=== PATIENT | female | born 1950 | race Caucasian/White ===

== ENCOUNTER 2019-09-05 08:24 | Inpatient (IN) | payer MEDICARE, SELFPAY ==
[2019-09-05] VITALS (29 sets, daily range): BP systolic 83–150; BP diastolic 54–110; PULSE 70–94; RESP 16–30; TEMP 36.4–37; O2SAT 67–100; BMI 35.6
--- NOTE | ~2019-09-05 | XR_ITS ---
EXAMINATION: XR shoulder RT min 2V, XR humerus RT DATE: 09/05/2019 10:06 INDICATION: Right humeral fracture post fall TECHNIQUE: 1. AP internally and externally rotated, AP oblique externally rotated and transscapular Y views of t he right shoulder were obtained. 2. Internal and axillary rotated views of the right humerus were obtained. COMPARISON: None FINDINGS: Old fracture at the surgical neck of the proximal right humerus with solid bridging between the humer al head fragment and the diaphyseal fragment. The fracture is healing with one half shaft width anter ior displacement, 1-1.5 cm proximal migration and approximately 30-40 degrees posterior angulation. N o acute fracture. Moderate right glenohumeral osteoarthritis with inferior predominant nonuniform bhavya nt space narrowing which appears to be increased since 01/05/2019. There is also moderate right acrom ioclavicular osteoarthritis. Normal joint space at the right elbow. Mild linear discoid atelectasis/s carring at the right lower lung zone. IMPRESSION: Healed proximal right humeral fracture deformity with moderate likely secondary osteoarthritis at the right glenohumeral joint. Reviewed, dictated and finalized at location A. IMPRESSION: Healed proximal right humeral fracture deformity with moderate likely secondary osteoarthritis at the right glenohumeral joint.
--- NOTE | ~2019-09-05 | CT_ITS ---
EXAMINATION: CT cervical spine wo con DATE: 09/05/2019 09:06 INDICATION: Weakness, dizziness, fall with head injury. TECHNIQUE: Computed tomography (CT) of the cervical spine was performed without intravenous contrast. Automated exposure control and iterative reconstruction technique were employed. The dose-length pro duct was 381.57 mGy-cm. COMPARISON: None FINDINGS: Mild cervicothoracic levocurvature. Sagittal alignment is normal. Vertebral body heights are normal. No fracture. Moderate disc height loss with Modic type III sclerotic endplate changes at C4-C5 throug h C6-C7. Mild disc height loss at C2-C3 and mild to moderate disc height loss at C3-C4. Visualized ce rvical soft tissues and apices of lungs are unremarkable. The following disc levels are specifically discussed: C2-C3: There is no uncovertebral joint osteoarthritis. There is mild right and moderate left facet j oint osteoarthritis. There is no neural foraminal stenosis. There is no central canal stenosis. C3-C4: There is severe bilateral uncovertebral joint osteoarthritis. There is mild bilateral facet guido int osteoarthritis. There is mild bilateral neural foraminal stenosis. There is no central canal sten osis. C4-C5: There is moderate right and severe left uncovertebral joint osteoarthritis. There is mild bila teral facet joint osteoarthritis. There is mild to moderate left and minimal right neural foraminal s tenosis. There is no central canal stenosis. C5-C6: Posterior disc osteophyte complex. There is severe bilateral uncovertebral joint osteoarthriti s. There is mild bilateral facet joint osteoarthritis. There is mild left and mild to moderate right neural foraminal stenosis. There is mild central canal stenosis. C6-C7: There is mild left and severe right uncovertebral joint osteoarthritis. There is mild left and moderate right facet joint osteoarthritis. There is mild right neural foraminal stenosis. There is n o central canal stenosis. C7-T1: The disc does not extend beyond the endplate margin. There is no uncovertebral joint osteoarth ritis. There is mild bilateral facet joint osteoarthritis. There is no neural foraminal stenosis. The re is no central canal stenosis. IMPRESSION: 1. Moderate cervical spondylosis. No acute osseous abnormality. Reviewed, dictated and finalized at location A.
--- NOTE | ~2019-09-05 | US_ITS ---
EXAMINATION: US carotid duplex BI DATE: 09/06/2019 09:59 INDICATION: Carotid bruits TECHNIQUE: Grayscale, color Doppler, and pulsed Doppler images of the cervical carotid arteries were obtained. The degree of vessel stenosis is placed in one of the following categories: normal, <50%, 5 0-69%, >=70% but less than near-occlusion, near-occlusion, or total occlusion. Note that percent sten osis relative to normal distal artery lumen diameter is indirectly measured from velocity measurement s as described by Juan, et al. Radiology 2003; 229:340-346. COMPARISON: None. FINDINGS: RIGHT: The right common carotid artery (CCA) peak systolic velocity (PSV) is 81 cm/s. The right internal car otid artery (ICA) PSV is 66 cm/s. The right ICA end-diastolic velocity (EDV) is 10 cm/s. The right IC A/CCA PSV ratio is 0.8. Grayscale and color Doppler images yield an estimate of <50% diameter reducti on from minimal plaque in the ICA. The external carotid artery (ECA) PSV is 97 cm/s. There is antegra de flow in the right vertebral artery. LEFT: The left CCA PSV is 75 cm/s. The left ICA PSV is 75 cm/s. The left ICA EDV is 29 cm/s. The left ICA/C CA PSV ratio is 1.0. Grayscale and color Doppler images yield an estimate of <50% diameter reduction from minimal plaque in the ICA. The ECA PSV is 63 cm/s. There is antegrade flow in the left vertebral artery. IMPRESSION: 1. <50% stenosis in the right internal carotid artery. 2. <50% stenosis in the left internal carotid artery. Reviewed, dictated and finalized at location A.
--- NOTE | ~2019-09-05 | US_ITS ---
EXAMINATION: US venous doppler [facility] DATE: 09/06/2019 09:59 INDICATION: Lower limb swelling TECHNIQUE: Grayscale ultrasound images without and with compression and Doppler ultrasound images of the bilateral lower extremity veins were obtained. COMPARISON: None. FINDINGS: The visualized portions of right common femoral vein, profunda (deep) femoral vein, femoral vein, pop liteal vein, posterior tibial veins, peroneal veins, gastrocnemius vein and greater saphenous vein ou tflow are patent. The visualized portions of left common femoral vein, profunda femoral vein, femoral vein, popliteal v ein, posterior tibial veins, peroneal veins, gastrocnemius vein and greater saphenous vein outflow ar e patent. IMPRESSION: 1. No deep venous thrombosis in either lower limb. Reviewed, dictated and finalized at location A.
--- NOTE | ~2019-09-05 | CT_ITS ---
EXAMINATION: CT brain wo con DATE: 09/05/2019 09:06 INDICATION: Fall with head injury TECHNIQUE: Computed tomography (CT) of the head was performed without intravenous contrast. Sagittal and coronal reconstructions were performed. The mA was adjusted according to patient size. Iterative reconstruction technique was employed. The dose-length product was 605.33 mGy-cm. COMPARISON: head CT dated 01/06/2019 FINDINGS: Subtle left frontal scalp contusion. No fracture. No acute intracranial hemorrhage, acute infarction or abnormal extra axial fluid collection. Symmetric prominence of the sulci and ventricles consistent with mild age-appropriate diffuse cerebral volume loss. No mass/mass effect. Changes of bilateral in traocular lens replacement. The orbits, paranasal sinuses and mastoid air cells are normal. IMPRESSION: 1. Normal aging brain. No acute intracranial process. Reviewed, dictated and finalized at location A.
--- NOTE | ~2019-09-05 | XR_ITS ---
XR chest 1V portable 09/05/2019 09:16 Indication: Status post fall. Weakness. Procedure: AP portable chest Comparison: 01/05/2019 Findings: Heart size normal. Left basilar atelectasis. No focal pneumonia, edema, pleural effusion or pneumothorax. There is a displaced right humeral neck fracture. There are multiple lower thoracic ve rtebral compression deformities with vertebroplasty changes. Impression: 1: Left basilar atelectasis. 2: Displaced right humeral neck fracture. Reviewed, dictated and finalized at location A. Impression: 1: Left basilar atelectasis. 2: Displaced right humeral neck fracture.
--- NOTE | 2019-09-05 08:36 | ECG_ITS ---
Measurements Intervals [place] Rate: 81 P: 46 OK: 170 QRS: -14 QRSD: 79 T: 8 QT: 381 QTc: 442 Interpretive Statements SINUS RHYTHM LEFT VENTRICULAR HYPERTROPHY AND ST-T CHANGE BORDERLINE T WAVE ABNORMALITY- INFERIOR LEADS BASELINE ARTIFACT- I, III, AVL, AVF, V1-V2 BORDERLINE ECG Electronically Signed On 09-05-2019 10:24:00 CDT by Hakan Alcaraz D.O.
[2019-09-05 09:00] LABS: Basophils Absolute Auto 0.1 K/mm3 (0.0-0.1); Basophils Percent Auto 0.6 % (0.2-1.2); Eosinophils Percent Auto 0.2 % (0-4.4); Hematocrit 41.1 % (37.0-47.0); Hemoglobin 13.3 g/dL (12.0-15.0); Immature Granulocyte Absolute 0.04 K/mm3 (0.00-0.031); Immature Granulocyte Percent A 0.4 % (0-0.5); Lymphocytes Absolute Auto 1.02 K/mm3 (0.9-3.2); Lymphocytes Percent Auto 9.4 % (18.3-44.2); Mean Corpuscular HGB Conc 32.4 g/dl (32-36); Mean Corpuscular Hemoglobin 27.8 pg (26-34); Mean Corpuscular Volume 85.8 fl (80-100); Mean Platelet Volume 9.5 fl (7.4-10.4); Monocytes Absolute Auto 0.7 K/mm3 (0.1-0.6); Monocytes Percent Auto 6.5 % (2.6-8.5); Neutrophils Absolute Auto 9.1 K/mm3 (1.3-6.7); Neutrophils Percent Auto 82.9 % (45.5-73.1); Platelet Count Result 292 k/mm3 (150-375); Red Blood Count 4.79 M/mm3 (4.2-5.4); Red Cell Distribution Width 13.1 % (11.5-14.5); White Blood Count 10.9 K/mm3 (4.5-10.0)
[2019-09-05 09:09] LABS: Partial Thromboplastin Time 22.7 SECONDS (22.3-36.8); Prothrombin Time 12.8 Seconds (11.1-14.7)
[2019-09-05] MEDS: LACTATED RINGERS 1,000 ML 999 ML IV CONT (09:33)
[2019-09-05 09:38] LABS: Add Urine Microscopic? YES; Appearance Urine Cloudy (Clear); Bacteria Urine 4+ /hpf; Bilirubin Urine Negative (Negative); Blood Urine 3+ (Negative); Color Urine Amber (Yellow); Glucose Urine UA Negative (Negative); Ketones Urine Negative (Negative); Leukocyte Esterase Ur 3+ LEU/UL (Negative); Mucus Urine Rare /lpf; Nitrate Urine Positive (Negative); Protein Urine 2+ mg/dL (Negative); RBC Urine 21-50 /hpf (0-2); Specific Grav Ur 1.025 (1.001-1.035); Squamous Epithelial Cell Urine Rare /hpf (Few); Urobilinogen Urine Negative mg/dL (<2.0); WBC Clumps Urine Present /HPF; WBC Urine >75 /hpf
--- NOTE | 2019-09-05 09:39 | ED.FALL ---
HPI - Fall General Chief Complaint: Fall Stated Complaint: WEAKNESS Time Seen by Provider: 09/05/19 08:35 Source: patient Mode of arrival: EMS Limitations: no limitations History of Present Illness HPI Narrative: This patient is a 69 year old female who presents via EMS for evaluation of fall and confusion. Patient's daughter is at bedside and she states her mother has been confused intermittent for 2 days. She states she found patient had fallen 2 days ago at home. She states she was doing okay so she was not sent to ER at that time. Today she went to get patient ready to go see her doctor for confusion, and patient was stuck in the bathtub. Patient states yesterday 5Pm she took a shower and she was unable to get out of the shower. Her daughter states patient appeared confused this morning and she had thrown shower chair out of tub and taken off her call alert button. Patient has not complaints. MD complaint: fall Related Data Home Medications Medication Instructions Recorded Confirmed alprazolam 0.25 mg tablet 0.25 mg PO TID tablet 03/13/19 09/05/19 atorvastatin 10 mg tablet 10 mg PO DAILY tablet 03/13/19 09/05/19 buspirone 15 mg tablet 10 mg PO BID tablet 03/13/19 09/05/19 carbidopa ER 50 mg-levodopa 200 mg 50 tablet PO QID 03/13/19 09/05/19 tablet,extended release citalopram 20 mg tablet 20 mg PO DAILY tablet 03/13/19 09/05/19 entacapone 200 mg tablet 200 mg PO QID tablet 03/13/19 09/05/19 metoprolol tartrate 50 mg tablet 50 mg PO BID tablet 03/13/19 09/05/19 ropinirole 5 mg tablet 5 mg PO TID tablet 03/13/19 09/05/19 carbidopa-levodopa 10 tablet PO DAILY 09/05/19 09/05/19 omeprazole 40 mg PO DAILY 09/05/19 09/05/19 Allergies Allergy/AdvReac Type Severity Reaction Status Date / Time No Known Allergies Allergy Unknown Unknown Uncoded 03/13/19 13:51 Review of Systems Review of Systems: All systems reviewed & are unremarkable except as noted in HPI and below Constitutional: Constitutional: Denies chills, Denies fever(s) and Denies weakness Eyes: Eyes: Reports no additional eye complaints ENT: Denies dizziness and Denies sore throat Cardiovascular: Cardiovascular: Denies chest pain and Denies radiating jaw, neck or arm pain Respiratory: Respiratory: Denies cough, Denies dyspnea and Denies wheezing Gastrointestinal: Gastrointestinal: Denies abdominal pain, Denies diarrhea, Denies nausea and Denies vomiting Musculoskeletal: Musculoskeletal: Denies back pain and Denies arthralgias [facility] Past Medical History Medical History (Updated 09/05/19 @ 19:06 by Arabella Mondragon MD) Anxiety Essential hypertension Lumbar burst fracture (~2018) Status post lumbar fusion at L1-L2. Osteoporosis Parkinson disease Restless leg syndrome Right humeral fracture (~12/2018) Treated nonsurgically and followed by Dr. Lagos. Imaging 06/04/2019 showed reasonable alignment with abundant maturing bone at fracture site. Surgical History Surgical History (Updated 09/05/19 @ 16:09 by Rae Pereira PA-C) History of cataract extraction History of foot surgery Right plantar fasciitis release. History of lumbar fusion (~02/2018) L1-L2. Family History Family History (Updated 09/05/19 @ 16:10 by Rae Pereira PA-C) Mother Pulmonary fibrosis Father Alzheimer's dementia Social History Social History (Updated 09/05/19 @ 16:27 by Rae Pereira PA-C) Social History: The patient lives in an apartment in [place], [place]. She denies alcohol, tobacco, and drug use. She has 1 daughter, Nina Singletary, who is her healthcare power of equity research analyst. The patient wishes to be a full code. Ambulates with a walker. Sexual Orientation (if Verbalized by the Patient): Straight or Heterosexual Spiritual care concerns: No Exam Const: General: no acute distress and alert Orientation/consciousness: patient oriented x3 HENMT: Head: normocephalic and other (left periorbital ecchymosis) Ears: TM'
--- NOTE | 2019-09-05 10:21 | PC.NURSE ---
Called phlebotomy to come draw blood from patient. Multiple unsuccessful attempts.
[2019-09-05 11:05] LABS: Alanine Aminotransferase 7 U/L (4-35); Albumin Level 3.9 g/dL (3.5-5.1); Alkaline Phosphatase 118 U/L (38-126); Aspartate Amino Transferase 101 U/L (14-36); Bilirubin,Total 1.5 mg/dL (0.2-1.3); Blood Urea Nitrogen 17 mg/dL (7-17); Calcium 9.1 mg/dL (8.4-10.2); Carbon Dioxide 21 mmol/L (22-30); Chloride 106 mmol/L (98-107); Estimated CRCL calculation 73 ml/min; Estimated Glomerular Filt Rate > 60; Glucose 99 mg/dL (65-105); Magnesium 1.8 mg/dL (1.6-2.3); Sodium 133 mmol/L (137-145)
[2019-09-05 11:06] LABS: Ammonia 15 umol/L (9-30)
[2019-09-05 11:07] LABS: Ethanol < 10 mg/dL (<10)
[2019-09-05 11:10] LABS: Troponin I < 0.012 ng/mL (0.000-0.034)
[2019-09-05 11:34] LABS: Creatine Kinase 10854 U/L (30-135)
--- NOTE | 2019-09-05 15:15 | PM.IMHP ---
H&P: HPI History of Present Illness Chief complaint: Weakness. Narrative: Nina Hudson is a 69-year-old female with Parkinson's, hypertension, hyperlipidemia, restless leg syndrome, and anxiety who presented to the emergency department earlier today via EMS from home for evaluation of weakness and the inability to get herself out of the bathtub. She was found by her daughter this morning in the bathtub, where she has reportedly been since 17:00 last evening. The patient tells me that she was simply too weak to get herself up out of the bathtub, and unfortunately she had taken off her alert button to bathe and was unable to call for help. Her daughter was coming over this morning to take her to a doctor's appointment for evaluation of increasing confusion over the past couple of days and suspected bladder infection. The patient herself denies noticeable confusion but does tell me that she has been experiencing incontinence and malodorous urine. She is also noted to have a large area of bruising about the left eye with an abrasion on her left cheek, which is from a fall that occurred on Monday. Reportedly she was trying to get out of her leather chair when she began experiencing severe vertigo, causing her to fall forward. She denies loss of consciousness in that fall and states that there were no significant injuries. In any regard, the only complaint she has at the time my evaluation is of the urinary incontinence and discomfort with the way her blankets are positioned. She denies auditory and visual changes, focal weakness, paresthesias, chest pain, pleuritic pain, palpitations, shortness of breath, nausea, vomiting, diarrhea, dysuria, and hematuria. Review of Systems Review of Systems: Narrative: Twelve systems were reviewed with pertinent positives and negatives as per HPI. No fever, chills, or sweats. She denies cold and flu symptoms. Occasional vertigo. No headache. Denies dysphagia but notes that very rarely she will cough when eating. In fact, she reports having a modified barium swallow study done within the last [address] [facility], which was reportedly unremarkable. No nausea or vomiting. She denies constipation and diarrhea. Complains of increasing flatus over the past couple of days. She has not noticed darker colored urine and denies hematuria. Except as documented, all other systems were reviewed and are negative. [facility] Past Medical History Medical History (Updated 09/05/19 @ 16:20 by Rae Pereira PA-C) Anxiety Essential hypertension Lumbar burst fracture (~2017) Status post lumbar fusion at L1-L2. Osteoporosis Parkinson disease Restless leg syndrome Right humeral fracture (~12/2018) Treated nonsurgically and followed by Dr. Lagos. Imaging 06/04/2019 showed reasonable alignment with abundant maturing bone at fracture site. Surgical History Surgical History (Updated 09/05/19 @ 16:09 by Rae Pereira PA-C) History of cataract extraction History of foot surgery Right plantar fasciitis release. History of lumbar fusion (~02/2018) L1-L2. Family History Family History (Updated 09/05/19 @ 16:10 by Rae Pereira PA-C) Mother Pulmonary fibrosis Father Alzheimer's dementia Social History Social History (Updated 09/05/19 @ 16:27 by Rae Pereira PA-C) Social History: The patient lives in an apartment in [place], [place]. She denies alcohol, tobacco, and drug use. She has 1 daughter, Nina Singletary, who is her healthcare power of etcher enameling. The patient wishes to be a full code. Ambulates with a walker. Sexual Orientation (if Verbalized by the Patient): Straight or Heterosexual Spiritual care concerns: No Meds Home Medications and Allergies Home Medications Medication Instructions Recorded Confirmed Type alprazolam 0.25 mg tablet 0.25 mg PO TID tablet 03/13/19 09/05/19 History atorvastatin 10 mg tablet 10 mg PO DAILY tablet 03/13/19 09/05/19 History brendan
[2019-09-05 16:55] LABS: Sodium 135 mmol/L (137-145)
[2019-09-05 17:16] LABS: Creatine Kinase 13961 U/L (30-135)
[2019-09-05] MEDS: SODIUM CHLORIDE 0.9% IV 1,000 ML 150 ML IV CONT (18:07)
[2019-09-05] MEDS: busPIRone HCL 5 MG TABLET 10 MG PO (18:18)
[2019-09-05] MEDS: ENTACAPONE 200 MG TABLET PO ×2 (18:19→20:34)
[2019-09-05] MEDS: METOPROLOL TARTRATE 50 MG TAB PO (20:34)
[2019-09-05] MEDS: PANTOPRAZOLE 40 MG TABLET PO (20:35)
[2019-09-05] MEDS: ALPRAZOLAM 0.25 MG TABLET PO (20:37)
[2019-09-06] VITALS (12 sets, daily range): BP systolic 114–134; BP diastolic 67–87; PULSE 69–81; RESP 16–18; TEMP 36.1–36.7; O2SAT 95–96
[2019-09-06 00:11] LABS: Creatine Kinase 8822 U/L (30-135)
[2019-09-06] MEDS: SODIUM CHLORIDE 0.9% IV 1,000 ML 150 ML IV CONT ×3 (01:04→17:25)
[2019-09-06 05:41] LABS: Basophils Absolute Auto 0.1 K/mm3 (0.0-0.1); Basophils Percent Auto 0.7 % (0.2-1.2); Eosinophils Absolute Auto 0.3 K/mm3 (0-0.3); Eosinophils Percent Auto 4.1 % (0-4.4); Hematocrit 36.4 % (37.0-47.0); Hemoglobin 11.6 g/dL (12.0-15.0); Immature Granulocyte Absolute 0.01 K/mm3 (0.00-0.031); Immature Granulocyte Percent A 0.1 % (0-0.5); Lymphocytes Absolute Auto 2.19 K/mm3 (0.9-3.2); Mean Corpuscular HGB Conc 31.9 g/dl (32-36); Mean Corpuscular Hemoglobin 27.8 pg (26-34); Mean Corpuscular Volume 87.3 fl (80-100); Mean Platelet Volume 9.5 fl (7.4-10.4); Monocytes Absolute Auto 0.8 K/mm3 (0.1-0.6); Monocytes Percent Auto 10.3 % (2.6-8.5); Neutrophils Absolute Auto 4.2 K/mm3 (1.3-6.7); Neutrophils Percent Auto 55.8 % (45.5-73.1); Platelet Count Result 243 k/mm3 (150-375); Red Blood Count 4.17 M/mm3 (4.2-5.4); Red Cell Distribution Width 13.4 % (11.5-14.5); White Blood Count 7.6 K/mm3 (4.5-10.0)
[2019-09-06 06:04] LABS: Alanine Aminotransferase 17 U/L (4-35); Albumin Level 3.3 g/dL (3.5-5.1); Alkaline Phosphatase 93 U/L (38-126); Aspartate Amino Transferase 109 U/L (14-36); Bilirubin,Total 1.4 mg/dL (0.2-1.3); Blood Urea Nitrogen 15 mg/dL (7-17); Calcium 8.7 mg/dL (8.4-10.2); Carbon Dioxide 25 mmol/L (22-30); Chloride 109 mmol/L (98-107); Estimated CRCL calculation 70 ml/min; Estimated Glomerular Filt Rate > 60; Glucose 102 mg/dL (65-105); Potassium 3.7 mmol/L (3.4-5.0); Sodium 137 mmol/L (137-145)
[2019-09-06] MEDS: busPIRone HCL 5 MG TABLET 10 MG PO ×2 (09:43→17:30)
[2019-09-06] MEDS: ENTACAPONE 200 MG TABLET PO ×4 (09:44→21:25)
[2019-09-06] MEDS: METOPROLOL TARTRATE 50 MG TAB PO ×2 (09:44→21:26)
[2019-09-06] MEDS: PANTOPRAZOLE 40 MG TABLET PO ×2 (09:44→21:26)
[2019-09-06] MEDS: CITALOPRAM HYDROBROMIDE 20 MG TABLET PO (09:44)
[2019-09-06] MEDS: ALPRAZOLAM 0.25 MG TABLET PO ×3 (09:49→17:30)
[2019-09-06] MEDS: CARBIDOPA/LEVODOPA 25/100 MG CR TABLET 2 TABLET PO ×3 (11:31→19:49)
[2019-09-06] MEDS: CARBIDOPA/LEVODOPA 10/100 MG TABLET 1 TABLET PO (11:31)
--- NOTE | 2019-09-06 12:50 | PM.IMPN ---
Progress Note: A&P Assessment and Plan (1) Aortic stenosis: Code(s): I35.0 - Nonrheumatic aortic (valve) stenosis Status: Acute Assessment and Plan: Echo read as velocities consistent with critical with MARTA 0.6cm2. Could explain some of her weakness. Cardiology consult to discuss options. Will decrease IV fluid rate. (2) Head trauma: Code(s): S09.90XA - Unspecified injury of head, initial encounter Status: Acute Assessment and Plan: Patient fell on Monday causing facial trauma. Reportedly due to vertigo, which she suffers from on occasion. Critical , PD and/or UTI may also be contributing. (3) Urinary tract infection: Code(s): N39.0 - Urinary tract infection, site not specified Status: Acute Assessment and Plan: UA noted. UCx pending. Continue ceftriaxone (4) Generalized weakness: Code(s): R53.1 - Weakness Status: Acute Assessment and Plan: Chronically deconditioned, exacerbated by UTI and from critical +/- PD. Continue PT/OT. Continue fall precautions. (5) Rhabdomyolysis: Code(s): M62.82 - Rhabdomyolysis Status: Acute Assessment and Plan: Patient was reportedly in the bathtub for more than 12 hours due to the inability [place] [address] [place] better today at 8800. AST elevation related to the rhabdo. She is voiding well. Renal function remaining normal. Continue IV fluids but decrease rate. (6) Hyponatremia: Code(s): E87.1 - Hypo-osmolality and hyponatremia Status: Acute Assessment and Plan: On review of previous records, it looks like her sodium is always a bit low. Na level normal now with IV fluids so probably a component of dehydration. (7) Parkinson disease: Code(s): G20 - Parkinson's disease Status: Acute Assessment and Plan: Stable. Probably contributing to her falls. Bedside swallow evaluation okay. Continue carbidopa-levodopa and entapacone. (8) Essential hypertension: Code(s): I10 - Essential (primary) hypertension Status: Acute Assessment and Plan: BP reviewed on 09/06/19. BP well controlled now. Continue antihypertensives with metoprolol and monitor closely. (9) Fracture of surgical neck of right humerus: Qualifiers: Encounter type: subsequent encounter Fracture alignment: displaced Fracture healing: with routine healing Fracture morphology: 2-part Fracture type: closed Qualified Code(s): S42.221D - 2-part displaced fracture of surgical neck of right humerus, subsequent encounter for fracture with routine healing Code(s): S42.211A - Unspecified displaced fracture of surgical neck of right humerus, initial encounter for closed fracture Status: Acute Assessment and Plan: Recent right humeral fracture. She states she has been released by her surgeon. (10) Frequent falls: Code(s): R29.6 - Repeated falls Status: Acute Assessment and Plan: As above. (11) Elevated aspartate aminotransferase level: Code(s): R74.0 - Nonspecific elevation of levels of transaminase and lactic acid dehydrogenase [LDH] Status: Acute Assessment and Plan: Elevated due to rhabdomyolysis. Subjective Date/time seen: 09/06/19 12:50 Interval history: 69yo female here for GNW and fall and found to have rhabdomyolysis. She feels well today. She was having dizziness a few days ago causing her to fall striking her head on a dresser in her bedroom. She was able to get by herself. The day prior to admission, patietn able to climb into the bath tub but once done, she couldn't get out. SHe did drain the water and covered herself with a towel. She was in the tub for about 12 hours. She feels better today. She is eating well. No n/v. No CP or SOB. Complains that her buttocks is sore. Exam Narrative: Exam Narrative: AF 134/
--- NOTE | 2019-09-06 16:17 | PM.CNCAR ---
Assessment and Plan Assessment and plan (1) Aortic stenosis: Code(s): I35.0 - Nonrheumatic aortic (valve) stenosis Status: Acute Assessment and Plan: She seems to have severe aortic valve stenosis, which is likely the cause of her dizziness and frequent falls and possible syncope. Will need SHAHEED to confirm the severity of aortic valve stenosis, and look for any other structural heart disease, and will need cardiac catheterization to look for coronary disease in case she needs to go for aortic valve replacement. In the event that she does not have significant coronary disease then she would be a candidate for TAVR. In the event that she has significant coronary disease then would need bypass surgery along with aortic valve replacement. Will arrange for cardiac catheterization and SHAHEED on Monday. Will get lipid profile treat accordingly, agree with gentle hydration and follow up input and outputs closely (2) Frequent falls: Code(s): R29.6 - Repeated falls Status: Acute Assessment and Plan: Likely is due to syncope due to aortic valve stenosis (3) Head trauma: Code(s): S09.90XA - Unspecified injury of head, initial encounter Status: Acute (4) Generalized weakness: Code(s): R53.1 - Weakness Status: Acute (5) Essential hypertension: Code(s): I10 - Essential (primary) hypertension Status: Acute (6) Rhabdomyolysis: Code(s): M62.82 - Rhabdomyolysis Status: Acute Additional Plan Thank you for allowing me to participate in this patient's care, I will be following up with you. Please do not hesitate to call me for any other inquiry History of Present Illness History of Present Illness Consult date/time: 09/06/19 16:17 69 years old lady with history of hypertension, history of dyslipidemia, history of Parkinson's disease, was admitted to the hospital due to fall and noted to have rhabdomyolysis because of stay on the floor for a long time. I was asked to see her because she had echocardiogram should showed severe aortic valve stenosis. She had echocardiogram revealed normal left ventricular function, moderate left ventricular hypertrophy with severe aortic valve stenosis, she does not have history of known valvular disease, but she has history of significant dyspnea on exertion, and she has been noted for the past few months chest significant dizziness from that she had fall few months ago lead to hip fracture and hip surgery. This time she had fall with the dizziness, but she attributed that to dizziness and vertigo. No chest pain per se, she gets occasional palpitation, no orthopnea no PNDs she has significant leg swelling. Reason For Visit: Weakness. Review of Systems Constitutional: Constitutional: Reports fatigue and Reports lethargy ENT: Reports as per HPI Cardiovascular: Cardiovascular: Reports as per HPI Respiratory: Respiratory: Reports dyspnea on exertion PMFSH Past Medical History Medical History Anxiety Essential hypertension Lumbar burst fracture (~2017) Status post lumbar fusion at L1-L2. Osteoporosis Parkinson disease Restless leg syndrome Right humeral fracture (~12/2018) Treated nonsurgically and followed by Dr. Lagos. Imaging 06/04/2019 showed reasonable alignment with abundant maturing bone at fracture site. Surgical History Surgical History History of cataract extraction History of foot surgery Right plantar fasciitis release. History of lumbar fusion (~02/2018) L1-L2. Family History Family History Mother Pulmonary fibrosis Father Alzheimer's dementia Social History Social History Social History: The patient lives in an apartment in [place], [place]. She denies alcohol, tobacco, and drug use. She has 1 d
--- NOTE | 2019-09-06 16:22 | ECHO_ITS ---
Patient Info Name: Nina Hudson Age: 69 years : 1950 Gender: Female Ht: 63 in Wt: 201 lbs BSA: 2.05 m2 HR: 85 bpm BP: 119 / 78 mmHg Heart Rhythm: Sinus Rhythm Technical Quality: Good Exam Date: 09/06/2019 10:38 AM Exam Location: [facility] Pulmonary Patient Status: Inpatient Admit Date: 09/05/2019 Staff Ordering Physician: Rae Pereira PA-C Mid Level Net Developer: Marques Cortes RDCS Attending Provider: Leobardo Gibbs MD Referring Physician: Kelli LESLIE; Exam Type: CA echo doppler color flow Study Info Indications R01.1 - Cardiac murmur, unspecified Complete two-dimensional, color flow and Doppler transthoracic echocardiogram is performed. Strain analysis performed. History/Risk Factors Murmur; HTN. Summary 1. Left ventricular chamber dimension is normal. 2. Left ventricular systolic function is normal, estimated at 60-65%. 3. There is moderately increased left ventricular wall thickness. 4. The left ventricular diastolic function is grade I diastolic dysfunction. 5. E/e' 15 is elevated. 6. Global longitudinal strain is abnormal at -12.7.%. 7. Left atrial chamber dimension is moderately enlarged. 8. Right atrial chamber dimension is mildly enlarged. 9. The aortic valve is not well visualized. 10. There is severe aortic valve sclerosis. 11. There is critical aortic valve stenosis based on a peak velocity of 568 cm/s, mean gradient of 77 mmHg, and aortic valve area of 0.6 cm2. 12. The mitral valve has moderately calcified annulus. 13. There is mild tricuspid valve regurgitation. 14. No pulmonary hypertension, estimated pulmonary arterial systolic pressure is 29 mmHg. Left Ventricle E/e' 15 is elevated. Global longitudinal strain is abnormal at -12.7.%. Left ventricular chamber dimension is normal. Left ventricular systolic function is normal, estimated at 60-65%. There is moderately increased left ventricular wall thickness. The left ventricular diastolic function is grade I diastolic dysfunction. Right Ventricle Right ventricular chamber dimension is normal. Right ventricular systolic function is normal. Left Atria Left atrial chamber dimension is moderately enlarged. Right Atria Right atrial chamber dimension is mildly enlarged. Aortic Valve There is critical aortic valve stenosis based on a peak velocity of 568 cm/s, mean gradient of 77 mmHg, and aortic valve area of 0.6 cm2. Cannot determine number of aortic valve leaflets. The aortic valve is not well visualized. There is severe aortic valve sclerosis. There is no aortic valve regurgitation. Pulmonic Valve There is no pulmonic regurgitation. Mitral Valve The mitral valve has moderately calcified annulus. There is no mitral valve stenosis. There is no mitral valve regurgitation. Tricuspid Valve There is mild tricuspid valve regurgitation. No pulmonary hypertension, estimated pulmonary arterial systolic pressure is 29 mmHg. Pericardium/Pleural There is no pericardial effusion. Inferior Vena Cava Normal inferior vena cava with >50% collapse upon inspiration consistent with normal right atrial pressure, 5 mmHg. Aorta The aortic root size at the sinus of Valsalva is normal. Left Ventricular Outflow Tract Name Value Normal LVOT 2D
[2019-09-06 17:25] LABS: Cholesterol 171 mg/dL (0-200); HDL Direct 38 mg/dL; Triglycerides 150 mg/dL (<150)
[2019-09-06 17:32] LABS: NT Pro B Type Natriuretic Pept 1340 PG/ML (5-100)
[2019-09-06 17:35] LABS: LDL Cholesterol Direct 97 mg/dL
[2019-09-07] VITALS (11 sets, daily range): BP systolic 119–138; BP diastolic 76–92; PULSE 68–77; RESP 18–20; TEMP 36.3–36.6; O2SAT 94–98
[2019-09-07] MEDS: SODIUM CHLORIDE 0.9% IV 1,000 ML 150 ML IV CONT ×4 (02:45→17:51)
[2019-09-07] MEDS: ACETAMINOPHEN 325 MG TABLET 650 MG PO (02:51)
[2019-09-07 07:42] LABS: Hematocrit 34.6 % (37.0-47.0); Hemoglobin 10.9 g/dL (12.0-15.0); Mean Corpuscular HGB Conc 31.5 g/dl (32-36); Mean Corpuscular Hemoglobin 27.9 pg (26-34); Mean Corpuscular Volume 88.7 fl (80-100); Mean Platelet Volume 9.8 fl (7.4-10.4); Platelet Count Result 203 k/mm3 (150-375); Red Cell Distribution Width 13.4 % (11.5-14.5); White Blood Count 6.2 K/mm3 (4.5-10.0)
[2019-09-07] MEDS: CARBIDOPA/LEVODOPA 25/100 MG CR TABLET 2 TABLET PO ×4 (07:58→20:01)
[2019-09-07] MEDS: CITALOPRAM HYDROBROMIDE 20 MG TABLET PO (08:10)
[2019-09-07] MEDS: ALPRAZOLAM 0.25 MG TABLET PO ×3 (08:10→17:47)
[2019-09-07] MEDS: METOPROLOL TARTRATE 50 MG TAB PO ×2 (08:10→20:01)
[2019-09-07] MEDS: ENTACAPONE 200 MG TABLET PO ×4 (08:10→20:01)
[2019-09-07] MEDS: busPIRone HCL 5 MG TABLET 10 MG PO ×2 (08:10→17:47)
[2019-09-07] MEDS: CARBIDOPA/LEVODOPA 10/100 MG TABLET 1 TABLET PO (08:10)
[2019-09-07] MEDS: PANTOPRAZOLE 40 MG TABLET PO ×2 (08:10→20:01)
[2019-09-07 08:11] LABS: Albumin Level 3.1 g/dL (3.5-5.1); Blood Urea Nitrogen 14 mg/dL (7-17); Calcium 8.4 mg/dL (8.4-10.2); Carbon Dioxide 24 mmol/L (22-30); Chloride 109 mmol/L (98-107); Estimated CRCL calculation 70 ml/min; Estimated Glomerular Filt Rate > 60; Glucose 95 mg/dL (65-105); Magnesium 1.7 mg/dL (1.6-2.3); Phosphorus 3.6 mg/dL (2.5-4.5); Potassium 3.7 mmol/L (3.4-5.0); Sodium 135 mmol/L (137-145)
--- NOTE | 2019-09-07 12:38 | PM.PNCARD ---
Progress Note: A&P Assessment and Plan (1) Aortic stenosis: Code(s): I35.0 - Nonrheumatic aortic (valve) stenosis Status: Acute Assessment and Plan: She seems to have severe aortic valve stenosis, which is likely the cause of her dizziness and frequent falls and possible syncope. Will need SHAHEED to confirm the severity of aortic valve stenosis, and look for any other structural heart disease, and will need cardiac catheterization to look for coronary disease in case she needs to go for aortic valve replacement. In the event that she does not have significant coronary disease then she would be a candidate for TAVR. In the event that she has significant coronary disease then would need bypass surgery along with aortic valve replacement. Will arrange for cardiac catheterization and SHAHEED on Monday. (2) Frequent falls: Code(s): R29.6 - Repeated falls Status: Acute Assessment and Plan: Likely is due to syncope due to aortic valve stenosis (3) Head trauma: Code(s): S09.90XA - Unspecified injury of head, initial encounter Status: Acute (4) Generalized weakness: Code(s): R53.1 - Weakness Status: Acute (5) Essential hypertension: Code(s): I10 - Essential (primary) hypertension Status: Acute (6) Rhabdomyolysis: Code(s): M62.82 - Rhabdomyolysis Status: Acute Additional Plan Thank you for allowing me to participate in this patient's care, I will be following up with you. Please do not hesitate to call me for any other inquiry Subjective Date/time seen: 09/07/19 12:38 She feels better today, no dizziness no lightheadedness, no chest pain. She had few questions about aortic valve stenosis I answered all her questions she is okay with the plan Exam Narrative: Exam Narrative: Awake alert oriented x3 not in acute distress Neck is supple no obvious JVD, no carotid bruit Chest: Good air entry bilaterally, lungs are clear to auscultation and percussion bilaterally Cardiovascular: Regular rate and rhythm, 2/6 systolic murmur noted left sternal border Abdomen: Soft nontender bowel sounds positive Extremities: +1 edema has good pulses distally bilaterally Objective Data Vital Signs Vital Signs: Vital Signs - 24 hr 09/06/19 14:00 09/06/19 16:00 09/06/19 20:00 Temperature 36.7 C Pulse Rate 77 75 80 Respiratory Rate 16 Blood Pressure 129/84 Pulse Oximetry 95 09/06/19 21:26 09/06/19 22:00 09/07/19 00:00 Temperature 36.1 C L Pulse Rate 78 72 74 Respiratory Rate 18 Blood Pressure 114/67 Pulse Oximetry 95 09/07/19 04:00 09/07/19 07:07 09/07/19 07:10 Temperature 36.3 C L Pulse Rate 69 68 74 Respiratory Rate 18 Blood Pressure 128/76 123/77 Pulse Oximetry 96 Intake/Output Intake/Output: Intake & Output 09/04/19 09/05/19 09/06/19 09/07/19 23:59 23:59 23:59 23:59 Intake Total 1840 5000 3240 Output Total 300 Balance 1540 5000 3240 Meds/Results Medications: Active Medications Generic Name Dose Route Start Last Admin Trade Name Freq PRN Reason Stop Dose Admin Acetaminophen 650 mg 09/06/19 20:26 09/07/19 02:51 Tylenol Tablet PO 650 mg Q4H PRN Administration Pain Rated 1-3 Alprazolam 0.25 mg 09/05/19 17:00 09/07/19 12:20 Xanax PO 0.25 mg TID JUAN JOSE Administration Buspirone HCl 10 mg 09/05/19 17:00 09/07/19 08:10 Buspar PO 10 mg BID JUAN JOSE Administration Carbidopa/Levodopa 1 tablet 09/06/19 09:00 09/07/19 08:10 Sinemet 10/100 Mg PO 1 tablet DAILY JUAN JOSE Administration Carbidopa/Levodopa 2 tablet 09/06/19 11:00 09/07/19 12:20 Sinemet Cr 25/100 Mg PO 2 tablet 0700,1100,1500,1900 JUAN JOSE Administration Citalopram Hydrobromide 20 mg 09/06/19 09:00 09/07/19 08:10 Celexa PO 20 mg DAILY JUAN JOSE Administration Entacapone 200 mg 09/05/19 17:00 09/07/19 12:20 Comtan PO 200 mg QID JUAN JOSE Administration Ceftriaxone Sodium/Dextrose 1 gm in 5
--- NOTE | 2019-09-07 16:22 | PM.IMPN ---
Progress Note: A&P Assessment and Plan (1) Aortic stenosis: Code(s): I35.0 - Nonrheumatic aortic (valve) stenosis Status: Acute Assessment and Plan: Echo read as velocities consistent with critical with MARTA 0.6cm2. Could explain her weakness, SOB and dizziness. Cardiology consulted and appreciate their input. SHAHEED Monday and then [facility]. I/O not accurate. Watch fluid status clinically. (2) Head trauma: Code(s): S09.90XA - Unspecified injury of head, initial encounter Status: Acute Assessment and Plan: Patient fell on Monday causing facial trauma. Reportedly due to vertigo, which she suffers from on occasion. Critical may be the etiology of her dizziness. PD and/or UTI may be contributing to her fall. Use vasoline to the dried eschar to help prevent scarring. (3) Urinary tract infection: Qualifiers: Hematuria presence: with hematuria Urinary tract infection type: acute cystitis Qualified Code(s): N30.01 - Acute cystitis with hematuria Code(s): N39.0 - Urinary tract infection, site not specified Status: Acute Assessment and Plan: UA noted. UCx growing Proteus sensitive to ceftriaxone. Continue the same. (4) Rhabdomyolysis: Qualifiers: Rhabdomyolysis type: non-traumatic Qualified Code(s): M62.82 - Rhabdomyolysis Code(s): M62.82 - Rhabdomyolysis Status: Acute Assessment and Plan: Patient was reportedly in the bathtub for more than 12 hours due to the inability [place] [address] but improving (level not drawn today although ordered). AST elevation related to the rhabdo. She is voiding well. Renal function remaining normal. Continue IV fluids. TCK reordered. (5) Generalized weakness: Code(s): R53.1 - Weakness Status: Acute Assessment and Plan: Chronically deconditioned but exacerbated by UTI and from critical +/- PD. Continue PT/OT. Continue fall precautions. (6) Hyponatremia: Code(s): E87.1 - Hypo-osmolality and hyponatremia Status: Acute Assessment and Plan: On review of previous records, it looks like her sodium is always a bit low. Na level stable and within her baseline. Continue to follow. (7) Parkinson disease: Code(s): G20 - Parkinson's disease Status: Acute Assessment and Plan: Stable. Probably contributing to her falls. Bedside swallow evaluation okay. Continue carbidopa-levodopa and entapacone. (8) Essential hypertension: Code(s): I10 - Essential (primary) hypertension Status: Acute Assessment and Plan: BP reviewed on 09/07/19. BP remains well controlled. Continue antihypertensives with metoprolol and monitor closely. (9) Fracture of surgical neck of right humerus: Qualifiers: Encounter type: subsequent encounter Fracture alignment: displaced Fracture healing: with routine healing Fracture morphology: 2-part Fracture type: closed Qualified Code(s): S42.221D - 2-part displaced fracture of surgical neck of right humerus, subsequent encounter for fracture with routine healing Code(s): S42.211A - Unspecified displaced fracture of surgical neck of right humerus, initial encounter for closed fracture Status: Acute Assessment and Plan: Recent right humeral fracture. She states she has been released by her surgeon. (10) Frequent falls: Code(s): R29.6 - Repeated falls Status: Acute Assessment and Plan: Related to above. (11) Elevated aspartate aminotransferase level: Code(s): R74.0 - Nonspecific elevation of levels of transaminase and lactic acid dehydrogenase [LDH] Status: Acute Assessment and Plan: Elevated due to rhabdomyolysis. Subjective Date/time seen: 09/07/19 16:22 Interval history: 69yo female here for GNW and fall and found to have rhabdomyolysis. Slept well l
[2019-09-08] VITALS (14 sets, daily range): BP systolic 139–176; BP diastolic 69–99; PULSE 64–82; RESP 18–20; TEMP 36.7–37.6; O2SAT 94–100
[2019-09-08] MEDS: ACETAMINOPHEN 325 MG TABLET 650 MG PO (00:26)
[2019-09-08] MEDS: SODIUM CHLORIDE 0.9% IV 1,000 ML 150 ML IV CONT ×2 (00:27→06:12)
[2019-09-08] MEDS: CARBIDOPA/LEVODOPA 25/100 MG CR TABLET 2 TABLET PO ×4 (06:12→18:47)
[2019-09-08 08:18] LABS: Blood Urea Nitrogen 11 mg/dL (7-17); Calcium 8.6 mg/dL (8.4-10.2); Carbon Dioxide 25 mmol/L (22-30); Chloride 107 mmol/L (98-107); Estimated CRCL calculation 70 ml/min; Estimated Glomerular Filt Rate > 60; Glucose 92 mg/dL (65-105); Potassium 3.8 mmol/L (3.4-5.0); Sodium 135 mmol/L (137-145)
[2019-09-08] MEDS: PANTOPRAZOLE 40 MG TABLET PO ×2 (08:21→21:14)
[2019-09-08] MEDS: ALPRAZOLAM 0.25 MG TABLET PO ×3 (08:21→16:43)
[2019-09-08] MEDS: METOPROLOL TARTRATE 50 MG TAB PO ×2 (08:21→21:14)
[2019-09-08] MEDS: CITALOPRAM HYDROBROMIDE 20 MG TABLET PO (08:21)
[2019-09-08] MEDS: ENTACAPONE 200 MG TABLET PO ×4 (08:21→21:14)
[2019-09-08] MEDS: busPIRone HCL 5 MG TABLET 10 MG PO ×2 (08:21→16:36)
[2019-09-08] MEDS: CARBIDOPA/LEVODOPA 10/100 MG TABLET 1 TABLET PO (08:29)
[2019-09-08 08:42] LABS: Creatine Kinase 1914 U/L (30-135)
--- NOTE | 2019-09-08 11:35 | PM.IMPN ---
Progress Note: A&P Assessment and Plan (1) Aortic stenosis: Code(s): I35.0 - Nonrheumatic aortic (valve) stenosis Status: Acute Assessment and Plan: Echo read as velocities consistent with critical with MARTA 0.6cm2. Could explain her weakness, SOB and dizziness. Cardiology consulted and appreciate their input. SHAHEED Monday and then [facility]. I/O not accurate. No evidence of fluid overload. Watch fluid status clinically. Lasix x 1. Called Dtr (with patient permission) twice and left message. (2) Head trauma: Code(s): S09.90XA - Unspecified injury of head, initial encounter Status: Acute Assessment and Plan: Patient fell on Monday causing facial trauma. Reportedly due to vertigo, which she suffers from on occasion. Critical may be the etiology of her dizziness. PD and/or UTI may be contributing to her fall. She is alos of schedule Xanax. Use vasoline to the dried eschar to help prevent scarring. (3) Urinary tract infection: Qualifiers: Hematuria presence: with hematuria Urinary tract infection type: acute cystitis Qualified Code(s): N30.01 - Acute cystitis with hematuria Code(s): N39.0 - Urinary tract infection, site not specified Status: Acute Assessment and Plan: UA noted. UCx growing Proteus sensitive to ceftriaxone. Continue the same. (4) Rhabdomyolysis: Qualifiers: Rhabdomyolysis type: non-traumatic Qualified Code(s): M62.82 - Rhabdomyolysis Code(s): M62.82 - Rhabdomyolysis Status: Acute Assessment and Plan: Patient was reportedly in the bathtub for more than 12 hours due to the inability [place] [address] but now down to 1900. AST elevation related to the rhabdo. She is voiding well. Renal function remaining normal. Lasix once. No evidence of fluid overload. Continue IV fluids for one more day. TCK ordered. (5) Generalized weakness: Code(s): R53.1 - Weakness Status: Acute Assessment and Plan: Chronically deconditioned but exacerbated by UTI and from critical +/- PD. Continue PT/OT. Continue fall precautions. (6) Hyponatremia: Code(s): E87.1 - Hypo-osmolality and hyponatremia Status: Acute Assessment and Plan: On review of previous records, it looks like her sodium is always a bit low. Na level stable and within her baseline. Continue to follow. (7) Parkinson disease: Code(s): G20 - Parkinson's disease Status: Acute Assessment and Plan: Stable. Probably contributing to her falls. Bedside swallow evaluation okay. Continue carbidopa-levodopa and entapacone. (8) Essential hypertension: Code(s): I10 - Essential (primary) hypertension Status: Acute Assessment and Plan: BP reviewed on 09/08/19. BP more elevated today for unclear reasons. Will continue her current antihypertensives with metoprolol and monitor closely. (9) Fracture of surgical neck of right humerus: Qualifiers: Encounter type: subsequent encounter Fracture alignment: displaced Fracture healing: with routine healing Fracture morphology: 2-part Fracture type: closed Qualified Code(s): S42.221D - 2-part displaced fracture of surgical neck of right humerus, subsequent encounter for fracture with routine healing Code(s): S42.211A - Unspecified displaced fracture of surgical neck of right humerus, initial encounter for closed fracture Status: Acute Assessment and Plan: Recent right humeral fracture. She states she has been released by her surgeon. (10) Frequent falls: Code(s): R29.6 - Repeated falls Status: Acute Assessment and Plan: Related to above. (11) Elevated aspartate aminotransferase level: Code(s): R74.0 - Nonspecific elevation of levels of transaminase and lactic acid dehydrogenase [LDH] Status: Acute Assessment
[2019-09-08] MEDS: SODIUM CHLORIDE 0.9% IV 1,000 ML 70 ML IV CONT (17:11)
[2019-09-08] MEDS: FUROSEMIDE INJ 40 MG/4 ML VIAL 20 MG IV PUSH (18:47)
[2019-09-09] VITALS (22 sets, daily range): BP systolic 108–155; BP diastolic 62–92; PULSE 66–88; RESP 13–20; TEMP 36.5–37.7; O2SAT 90–98
--- NOTE | 2019-09-09 | ECHO_ITS ---
Patient Info Name: Nina Hudson Age: 69 years : 1950 Gender: Female Ht: 63 in Wt: 201 lbs BSA: 2.05 m2 HR: 76 bpm BP: 155 / 89 mmHg Heart Rhythm: Sinus Rhythm Technical Quality: Good Exam Date: 09/09/2019 1:34 PM Exam Location: [facility] Card Pulmonary Patient Status: Inpatient Admit Date: 09/05/2019 Staff Ordering Physician: Teodoro Quesada MD Director Of Physiotherapy Services: Marques Cortes RDCS Attending Provider: Leobardo Gibbs MD Exam Type: CA echo transesophageal Study Info Indications I35.0 - Nonrheumatic aortic (valve) stenosis Complete two-dimensional, color flow and Doppler transesophageal study is performed. History/Risk Factors Critical aortic stenosis. Jonah was done due to severe aortic valve stenosis. Summary 1. The aortic valve is bicuspid. 2. There is severe aortic valve stenosis. 3. There is severe aortic valve sclerosis. Left Ventricle Left ventricular chamber dimension is normal. Left ventricular systolic function is normal with an ejection fraction by Biplane Method of Discs of 60 %. There is no increased left ventricular wall thickness. Left ventricular septal wall motion is normal. The left ventricular diastolic function is normal. Right Ventricle Right ventricular chamber dimension is normal. Right ventricular systolic function is normal. Left Atria Left atrial chamber dimension is normal. Right Atria Right atrial chamber dimension is normal. Atrial Appendage Left atrial appendage is normal with normal velocity, 74 cm/s. Aortic Valve The aortic valve is bicuspid. There is severe aortic valve sclerosis. There is severe aortic valve stenosis. There is trace aortic valve regurgitation. Pulmonic Valve The pulmonic valve is normal. There is no pulmonic valve stenosis. There is no pulmonic regurgitation. Mitral Valve The mitral valve has normal leaflets. There is no mitral valve stenosis. There is mild mitral valve regurgitation. Tricuspid Valve The tricuspid valve leaflets are normal. There is no significant tricuspid valve stenosis. There is trace tricuspid valve regurgitation. Pericardium/Pleural The pericardium appears normal. There is no pericardial effusion. Inferior Vena Cava Normal inferior vena cava with <50% collapse upon inspiration consistent with normal right atrial pressure, 5 mmHg. Aorta The aortic root size at the sinus of Valsalva is normal. The prox ascending aorta size is normal. Tricuspid Valve Name Value Normal Estimated PAP/RSVP RA Pressure 5 mmHg <=5 Ventricles Name Value Normal LV Fractional Shortening/Ejection Fraction 2D/MM LV EF (BP MOD) 60 % 54-74 Atria Name Value Normal LA/RA Appendage
[2019-09-09 07:30] LABS: Creatine Kinase 810 U/L (30-135)
[2019-09-09 07:37] LABS: Blood Urea Nitrogen 15 mg/dL (7-17); Carbon Dioxide 23 mmol/L (22-30); Chloride 105 mmol/L (98-107); Estimated CRCL calculation 81 ml/min; Estimated Glomerular Filt Rate > 60; Glucose 99 mg/dL (65-105); Potassium 3.9 mmol/L (3.4-5.0); Sodium 137 mmol/L (137-145)
[2019-09-09] MEDS: CARBIDOPA/LEVODOPA 10/100 MG TABLET 1 TABLET PO (08:19)
[2019-09-09] MEDS: METOPROLOL TARTRATE 50 MG TAB PO ×2 (08:19→20:06)
[2019-09-09] MEDS: CARBIDOPA/LEVODOPA 25/100 MG CR TABLET 2 TABLET PO ×4 (08:20→20:05)
--- NOTE | 2019-09-09 11:08 | PM.IMPN ---
Progress Note: A&P Assessment and Plan (1) Aortic stenosis: Code(s): I35.0 - Nonrheumatic aortic (valve) stenosis Status: Acute Assessment and Plan: Echo read as velocities consistent with critical with MARTA 0.6cm2. Could explain her weakness, SOB and dizziness. Cardiology consulted and appreciate their input. SHAHEED and LHC today. I/O not accurate. No evidence of fluid overload. Lasix x 1 yesterday. Stop IV fluids LHC: clean coronaries. SHAHEED: severe with likely bicuspid. Patient will need TAVR and this is being arranged. Home when okay with cardiolgy. (2) Head trauma: Code(s): S09.90XA - Unspecified injury of head, initial encounter Status: Acute Assessment and Plan: Patient fell on Monday causing facial trauma. Reportedly due to vertigo, which she suffers from on occasion. Critical may be the etiology of her dizziness. PD and/or UTI may be contributing to her fall. She is also of schedule Xanax. (3) Urinary tract infection: Qualifiers: Hematuria presence: with hematuria Urinary tract infection type: acute cystitis Qualified Code(s): N30.01 - Acute cystitis with hematuria Code(s): N39.0 - Urinary tract infection, site not specified Status: Acute Assessment and Plan: UA noted. UCx growing Proteus sensitive to ceftriaxone. Continue the same. (4) Generalized weakness: Code(s): R53.1 - Weakness Status: Acute Assessment and Plan: Chronically deconditioned but exacerbated by UTI and from critical +/- PD. Continue PT/OT. Continue fall precautions. (5) Rhabdomyolysis: Qualifiers: Rhabdomyolysis type: non-traumatic Qualified Code(s): M62.82 - Rhabdomyolysis Code(s): M62.82 - Rhabdomyolysis Status: Acute Assessment and Plan: Patient was reportedly in the bathtub for more than 12 hours due to the inability to [place] [address] but now down to 810. AST elevation related to the rhabdo. She is voiding well. Renal function remaining normal. Lasix once yesterday. No evidence of fluid overload. Stop IV fluids. (6) Hyponatremia: Code(s): E87.1 - Hypo-osmolality and hyponatremia Status: Acute Assessment and Plan: On review of previous records, it looks like her sodium is always a bit low. Na level stable and within her baseline. Continue to follow. (7) Parkinson disease: Code(s): G20 - Parkinson's disease Status: Acute Assessment and Plan: Stable. Probably contributing to her falls. Bedside swallow evaluation okay. Continue carbidopa-levodopa and entapacone. (8) Essential hypertension: Code(s): I10 - Essential (primary) hypertension Status: Acute Assessment and Plan: BP reviewed on 09/09/19. BP better controlled after Lasix so may be due to fluids. Will continue her current antihypertensives with metoprolol and monitor closely. (9) Fracture of surgical neck of right humerus: Qualifiers: Encounter type: subsequent encounter Fracture alignment: displaced Fracture healing: with routine healing Fracture morphology: 2-part Fracture type: closed Qualified Code(s): S42.221D - 2-part displaced fracture of surgical neck of right humerus, subsequent encounter for fracture with routine healing Code(s): S42.211A - Unspecified displaced fracture of surgical neck of right humerus, initial encounter for closed fracture Status: Acute Assessment and Plan: Recent right humeral fracture. She states she has been released by her surgeon. (10) Frequent falls: Code(s): R29.6 - Repeated falls Status: Acute Assessment and Plan: As above. (11) Elevated aspartate aminotransferase level: Code(s): R74.0 - Nonspecific elevation of levels of transaminase and lactic acid dehydrogenase [LDH] Status: Acute Assessment and Plan
--- NOTE | 2019-09-09 13:40 | WPDMODSED ---
Moderate Sedation Note-Pt Data Patient Data Allergies Allergy/AdvReac Type Severity Reaction Status Date / Time No Known Allergies Allergy Verified 09/09/19 07:34 Home Medications Medication Instructions Recorded Confirmed Type alprazolam 0.25 mg tablet 0.25 mg PO TID tablet 03/13/19 09/05/19 History atorvastatin 10 mg tablet 10 mg PO DAILY tablet 03/13/19 09/05/19 History buspirone 15 mg tablet 10 mg PO BID tablet 03/13/19 09/05/19 History carbidopa ER 50 mg-levodopa 200 mg 50 tablet PO QID 03/13/19 09/06/19 History tablet,extended release citalopram 20 mg tablet 20 mg PO DAILY tablet 03/13/19 09/05/19 History entacapone 200 mg tablet 200 mg PO QID tablet 03/13/19 09/05/19 History metoprolol tartrate 50 mg tablet 50 mg PO BID tablet 03/13/19 09/05/19 History ropinirole 5 mg tablet 5 mg PO TID tablet 03/13/19 09/05/19 History carbidopa-levodopa 10 tablet PO DAILY 09/05/19 09/06/19 History omeprazole 40 mg PO DAILY 09/05/19 09/05/19 History Current Medications: Active Medications Acetaminophen (Tylenol Tablet) 650 mg PO Q4H PRN PRN Reason: Pain Rated 1-3 Last Admin: 09/08/19 00:26 Dose: 650 mg Documented by: Alprazolam (Xanax) 0.25 mg PO TID [facility] Last Admin: 09/08/19 16:43 Dose: 0.25 mg Documented by: Buspirone HCl (Buspar) 10 mg PO BID [facility] Last Admin: 09/08/19 16:36 Dose: 10 mg Documented by: Carbidopa/Levodopa (Sinemet 10/100 Mg) 1 tablet PO DAILY [facility] Last Admin: 09/09/19 08:19 Dose: 1 tablet Documented by: Carbidopa/Levodopa (Sinemet Cr 25/100 Mg) 2 tablet PO 0700,1100,1500,1900 [facility] Last Admin: 09/09/19 12:33 Dose: 2 tablet Documented by: Citalopram Hydrobromide (Celexa) 20 mg PO DAILY [facility] Last Admin: 09/08/19 08:21 Dose: 20 mg Documented by: Emollient Ointment (Vaseline) 1 applic TOPICAL BID [facility] Last Admin: 09/08/19 16:36 Dose: 1 applic Documented by: Entacapone (Comtan) 200 mg PO QID [facility] Last Admin: 09/08/19 21:14 Dose: 200 mg Documented by: Ceftriaxone Sodium/Dextrose (Rocephin 1 Gm/D5w 50 Ml) 1 gm in 50 mls @ 100 mls/hr IVPB Q24H [facility] Last Admin: 09/09/19 12:26 Dose: 100 mls/hr Documented by: Metoprolol Tartrate (Lopressor) 50 mg PO Q12HR [facility] Last Admin: 09/09/19 08:19 Dose: 50 mg Documented by: Pantoprazole Sodium (Protonix) 40 mg PO Q12HR [facility] Last Admin: 09/08/19 21:14 Dose: 40 mg Documented by: Ropinirole HCl (Requip) 5 mg PO TID [facility] Last Admin: 09/08/19 16:37 Dose: 5 mg Documented by: Sedation/Anesthesia: No previous sedation/anesthesia problems (including family history). [facility] Past Medical History Medical History Anxiety Essential hypertension Lumbar burst fracture (~2017) Status post lumbar fusion at L1-L2. Osteoporosis Parkinson disease Restless leg syndrome Right humeral fracture (~12/2018) Treated nonsurgically and followed by Dr. Lagos. Imaging 06/04/2019 showed reasonable alignment with abundant maturing bone at fracture site. Surgical History Surgical History History of cataract extraction History of foot surgery Right plantar fasciitis release. History of lumbar fusion (~02/2018) L1-L2. Family History Family History Mother Pulmonary fibrosis Father Alzheimer's dementia Social History Social History Social History: The patient lives in an apartment in [place], [place]. She denies alcohol, tobacco, and drug use. She has 1 daughter, Nina Singletary, who is her healthcare power of commercial litigation attorney. The patient wishes to be a full code. Ambulates with a walker. Sexual Orientation (if Verbalized by the Patient): Straight or Heterosexual Spiritual care concerns: No Mod Sed Physical Exam Physical Exam Pre Procedural Exam: Normal: Appearance, Eyes, Ears, Nose, Neck, Throat, Airway, Lungs, Heart Size,
--- NOTE | 2019-09-09 13:42 | PC.NURSE ---
Pt just left unit, to have a SHAHEED and a cardiac cath done.
--- NOTE | 2019-09-09 13:54 | SUR.OPER ---
SHAHEED probe in 1349 probe out 1358
--- NOTE | 2019-09-09 14:00 | WPDCARDPROC ---
Cardiac Cath Procedure Note Date of procedure:: 09/09/19 Performing physician:: Teodoro Quesada MD Procedure: SHAHEED [employer] Manager: Dr. Quesada Sedation: Conscious sedation with local anesthesia of the oral cavity, using 2 mg of Versed 25 mg of fentanyl Technique: After informed consent obtained the patient was brought to the chest pain center, time was called, initial sedation was done with numbing of the oral cavity. Subsequently the SHAHEED probe was inserted advanced through the esophagus and subsequently into the stomach, and transgastric views obtained. The probe then was pulled to the midesophageal level, and transesophageal views were obtained. All valves were clearly visualized, all chambers were clearly visualized, color and Doppler was done, subsequently the probe was rotated to check for the aorta, subsequently the probe was removed patient observed no complication, she was in her room in stable condition stable vital signs. Echocardiographic findings there is [id number] left ventricular hypertrophy with normal left ventricular systolic function, there is severe valve narrowing was calcification and bicuspid aortic valve with severe aortic valve stenosis. Summary severe aortic valve stenosis with likely is bicuspid aortic valve
--- NOTE | 2019-09-09 14:36 | P.PCNCC_ITS ---
Cardiac Cath Procedure Note Date of procedure:: 09/09/19 Performing physician:: Teodoro Quesada MD Procedure: 1. Left heart catheterization, selective coronary angiogram. 2. Angio-Seal device for arterial hemostasis 3. Conscious sedation. Diamond Sander: Dr. Teodoro Quesada Complications: None. Sedation: Conscious sedation, local anesthesia, using 1 mg of Versed said, 25 mcg of fentanyl, and using 1% lidocaine for local anesthesia. Technique: After informed consent was obtained from patient, was brought to the blood bank laboratory technologist, put in the blood bank laboratory technologist table, prepped and draped in usual sterile fashion. Five [place] sheath was inserted into the right common femoral artery, through the sheath 5 [place] JL4 catheter inserted, advanced to the left coronary artery, left coronary artery angiogram was obtained. The catheter was exchanged over guidewire into a 5 [place] JR4 catheter, advanced to the right coronary artery, right coronary artery angiogram was obtained. The catheter then was exchanged over guidewire into this 5 [place] pigtail catheter, advanced to aortic root, and aortic root angiogram was obtained. The catheter then was pulled, the sheath was pulled applying Angio-Seal device for arterial hemostasis. Patient tolerated the procedure no complication, taken from the blood bank laboratory technologist to his room in stable condition stable vital signs. Hemodynamics: aortic pressure 124/60 . LV pressure 124/04 with LVEDP of 24 mmHg Angiographic findings: Left main: Medium size artery no significant disease or stenosis. Lad medium size artery showed no significant disease or stenosis Left circumflex artery, medium size artery, no significant disease or stenosis. RCA: Dominant vessel, showed no significant disease or stenosis Aortic root angiogram showed mildly dilated aortic root Summary: No significant coronary disease, severe aortic valve stenosis Recommendation: Patient would benefit from aortic valve TAVR
--- NOTE | 2019-09-09 14:39 | PM.PNCARD ---
Progress Note: A&P Assessment and Plan (1) Aortic stenosis: Code(s): I35.0 - Nonrheumatic aortic (valve) stenosis Status: Acute Assessment and Plan: She seems to have severe aortic valve stenosis, which is likely the cause of her dizziness and frequent falls and possible syncope. SHAHEED was done confirmed severe aortic valve stenosis with bicuspid aortic valve. Cardiac catheterization showed no significant coronary disease, she would be a good candidate for TAVR (2) Frequent falls: Code(s): R29.6 - Repeated falls Status: Acute Assessment and Plan: Likely is due to syncope due to aortic valve stenosis (3) Head trauma: Code(s): S09.90XA - Unspecified injury of head, initial encounter Status: Acute (4) Generalized weakness: Code(s): R53.1 - Weakness Status: Acute (5) Essential hypertension: Code(s): I10 - Essential (primary) hypertension Status: Acute (6) Rhabdomyolysis: Qualifiers: Rhabdomyolysis type: non-traumatic Qualified Code(s): M62.82 - Rhabdomyolysis Code(s): M62.82 - Rhabdomyolysis Status: Acute Additional Plan Will make arrangement for TAVR evaluation, meanwhile she could be discharged home tomorrow morning, I will arrange for TAVR as an outpatient in [facility] or [facility] Date/time seen: 09/09/19 14:39 Feels well today, she underwent SHAHEED revealing a bicuspid aortic valve with severe aortic valve stenosis, cardiac catheterization done showed no significant coronary disease Exam Narrative: Exam Narrative: Awake alert oriented x3 not in acute distress Neck is supple no obvious JVD, no carotid bruit Chest: Good air entry bilaterally, lungs are clear to auscultation and percussion bilaterally Cardiovascular: Regular rate and rhythm, 2/6 systolic murmur noted left sternal border Abdomen: Soft nontender bowel sounds positive Extremities: +1 edema has good pulses distally bilaterally Objective Data Vital Signs Vital Signs: Vital Signs - 24 hr 09/08/19 16:00 09/08/19 20:00 09/08/19 20:05 Temperature Pulse Rate 77 78 80 Respiratory Rate Blood Pressure 143/78 H 156/88 H Pulse Oximetry 09/08/19 21:14 09/08/19 22:00 09/09/19 00:00 Temperature 37.6 C Pulse Rate 80 79 80 Respiratory Rate 18 Blood Pressure 141/86 H Pulse Oximetry 94 09/09/19 04:00 09/09/19 06:00 09/09/19 13:40 Temperature 37.7 C H Pulse Rate 71 79 73 Respiratory Rate 18 15 Blood Pressure 148/65 H 155/92 H Pulse Oximetry 94 98 09/09/19 13:45 09/09/19 13:50 Temperature Pulse Rate 75 83 Respiratory Rate 18 13 Blood Pressure 147/89 H 149/90 H Pulse Oximetry 96 96 Intake/Output Intake/Output: Intake & Output 09/06/19 09/07/19 09/08/19 09/09/19 23:59 23:59 23:59 23:59 Intake Total 5000 5530 4550 Output Total 600 1000 800 Balance 5000 4930 3550 -800 Meds/Results Medications: Active Medications Generic Name Dose Route Start Last Admin Trade Name Freq PRN Reason Stop Dose Admin Acetaminophen 650 mg 09/06/19 20:26 09/08/19 00:26 Tylenol Tablet PO 650 mg Q4H PRN Administration Pain Rated 1-3 Alprazolam 0.25 mg 09/05/19 17:00 09/08/19 16:43 Xanax PO 0.25 mg TID JUAN JOSE Administration Buspirone HCl 10 mg 09/05/19 17:00 09/08/19 16:36 Buspar PO 10 mg BID JUAN JOSE Administration Carbidopa/Levodopa 1 tablet 09/06/19 09:00 09/09/19 08:19 Sinemet 10/100 Mg PO 1 tablet DAILY JUAN JOSE Administration Carbidopa/Levodopa 2 tablet 09/06/19 11:00 09/09/19 12:33 Sinemet Cr 25/100 Mg PO 2 tablet 0700,1100,1500,1900 JUAN JOSE Administration Citalopram Hydrobromide 20 mg 09/06/19 09:00 09/08/19 08:21 Celexa PO 20 mg DAILY JUAN JOSE Administration Emollient Ointment 1 applic 09/07/19 20:10 09/08/19 16:36 Vaseline TOPICAL 1 applic BID JUAN JOSE Administration Entacapone 200 mg 09/05/19 17:00 09/08/19 21:14 Comtan P
[2019-09-09] MEDS: busPIRone HCL 5 MG TABLET 10 MG PO ×2 (17:04→18:35)
[2019-09-09] MEDS: ENTACAPONE 200 MG TABLET PO ×3 (17:05→20:05)
[2019-09-09] MEDS: CITALOPRAM HYDROBROMIDE 20 MG TABLET PO (17:05)
[2019-09-09] MEDS: PANTOPRAZOLE 40 MG TABLET PO ×2 (17:06→20:04)
[2019-09-09] MEDS: ALPRAZOLAM 0.25 MG TABLET PO ×2 (17:09→17:14)
[2019-09-09] MEDS: CHLORHEXIDINE GLUCONATE 4% SOL 120 ML BTL 1 APPLIC TOPICAL (17:14)
[2019-09-09] MEDS: ACETAMINOPHEN 325 MG TABLET 650 MG PO (17:17)
[2019-09-09] MEDS: SODIUM CHLORIDE 0.9% IV 1,000 ML 125 ML IV CONT (18:31)
[2019-09-10] VITALS (8 sets, daily range): BP systolic 120–142; BP diastolic 76–90; PULSE 66–72; RESP 16–20; TEMP 36.6–37.2; O2SAT 93–96
[2019-09-10 06:45] LABS: Creatine Kinase 391 U/L (30-135)
[2019-09-10] MEDS: ALPRAZOLAM 0.25 MG TABLET PO ×2 (08:18→12:39)
[2019-09-10] MEDS: ENTACAPONE 200 MG TABLET PO ×2 (08:18→12:41)
[2019-09-10] MEDS: CARBIDOPA/LEVODOPA 10/100 MG TABLET 1 TABLET PO (08:19)
[2019-09-10] MEDS: PANTOPRAZOLE 40 MG TABLET PO (08:20)
[2019-09-10] MEDS: METOPROLOL TARTRATE 50 MG TAB PO (08:20)
[2019-09-10] MEDS: CARBIDOPA/LEVODOPA 25/100 MG CR TABLET 2 TABLET PO ×2 (08:20→12:40)
[2019-09-10] MEDS: CITALOPRAM HYDROBROMIDE 20 MG TABLET PO (08:21)
[2019-09-10] MEDS: busPIRone HCL 5 MG TABLET 10 MG PO (08:21)
[2019-09-10] MEDS: ACETAMINOPHEN 325 MG TABLET 650 MG PO (08:22)
--- NOTE | 2019-09-10 09:09 | PM.PNCARD ---
Progress Note: A&P Assessment and Plan (1) Aortic stenosis: Code(s): I35.0 - Nonrheumatic aortic (valve) stenosis Status: Acute Assessment and Plan: Severe aortic valve stenosis, which is likely the cause of her dizziness and frequent falls and possible syncope. SHAHEED was done confirmed severe aortic valve stenosis with bicuspid aortic valve. Cardiac catheterization showed no significant coronary disease She is stable for discharge from cardiac standpoint. PT/OT to assess for safe discharge planning Will make arrangements for follow up at [facility] for TAVR planning (2) Frequent falls: Code(s): R29.6 - Repeated falls Status: Acute Assessment and Plan: Likely is due to syncope due to aortic valve stenosis (3) Essential hypertension: Code(s): I10 - Essential (primary) hypertension Status: Acute Assessment and Plan: Well controlled. Continue Metoprolol at current dose. (4) Rhabdomyolysis: Qualifiers: Rhabdomyolysis type: non-traumatic Qualified Code(s): M62.82 - Rhabdomyolysis Code(s): M62.82 - Rhabdomyolysis Status: Acute Assessment and Plan: Creatinine stable. Additional Plan Will make arrangement for TAVR evaluation, meanwhile she could be discharged home (pending PT eval). Kev arrange for TAVR as an outpatient in [facility] Subjective Date/time seen: 09/10/19 09:09 No overnight events. Denies chest pain or dyspnea. Review of Systems Constitutional: Constitutional: Reports fatigue and Reports lethargy ENT: Reports as per HPI Cardiovascular: Cardiovascular: Reports as per HPI and Reports dyspnea on exertion Respiratory: Respiratory: Reports dyspnea on exertion Endocrine: Endocrine: Reports fatigue Exam Narrative: Exam Narrative: Awake alert oriented x3 not in acute distress. abrasion to forehead Neck is supple no obvious JVD, no carotid bruit Chest: Good air entry bilaterally, lungs are clear to auscultation and percussion bilaterally Cardiovascular: Regular rate and rhythm, 2/6 systolic murmur noted left sternal border Abdomen: Soft nontender bowel sounds positive Extremities: +1 edema has good pulses distally bilaterally Objective Data Vital Signs Vital Signs: Vital Signs - 24 hr 09/09/19 12:00 09/09/19 13:40 09/09/19 13:45 Temperature Pulse Rate 78 73 75 Respiratory Rate 15 18 Blood Pressure 155/92 H 147/89 H Pulse Oximetry 98 96 09/09/19 13:50 09/09/19 14:37 09/09/19 14:45 Temperature 36.6 C Pulse Rate 83 73 73 Respiratory Rate 13 20 20 Blood Pressure 149/90 H 150/89 H 150/89 H Pulse Oximetry 96 92 92 09/09/19 15:00 09/09/19 15:15 09/09/19 15:30 Temperature Pulse Rate 78 72 72 Respiratory Rate 19 18 20 Blood Pressure 134/84 134/75 143/81 H Pulse Oximetry 92 91 90 09/09/19 16:00 09/09/19 16:03 09/09/19 16:35 Temperature 36.7 C Pulse Rate 72 66 73 Respiratory Rate 17 16 Blood Pressure 153/87 H 141/76 H Pulse Oximetry 94 93 09/09/19 17:35 09/09/19 19:30 09/09/19 20:00 Temperature 36.5 C 36.6 C Pulse Rate 72 84 69 Respiratory Rate 16 20 Blood Pressure 128/85 122/70 Pulse Oximetry 98 98 09/09/19 20:06 09/09/19 20:30 09/09/19 22:00 Temperature 36.6 C 36.8 C Pulse Rate 71 88 70 Respiratory Rate 20 20 Blood Pressure 117/74 108/62 Pulse Oximetry 96 92 09/10/19 00:00 09/10/19 02:00 09/10/19 06:00 Temperature 37.2 C 37.0 C Pulse Rate 66 69 72 Respiratory Rate 20 20 Blood Pressure 120/76 122/76 Pulse Oximetry 93 93 09/10/19 08:15 09/10/19 08:20 Temperature Pulse Rate 69 69 Respiratory Rate 18 Blood Pressure 142/90 H Pulse Oximetry 96 Intake/Output Intake/Output: Intake & Output 09/07/19 09/08/19 09/09/19 09/10/19 23:59 23:59 23:59 23:59 Intake Total 5530 4550 490 1370 Output Total 600 1000 1600 900 Balance 4930 3550 -1110 470 Meds/Results Medications: Active Medications Generic
--- NOTE | 2019-09-10 18:29 | PM.DS ---
DS: Admitting Diagnosis Admitting Diagnosis Admitting Diagnosis: Rhabdomyolysis DS: Discharge Diagnosis Discharge Diagnosis (1) Aortic stenosis: Code(s): I35.0 - Nonrheumatic aortic (valve) stenosis Status: Acute Assessment and Plan: Echo read as velocities consistent with critical with MARTA 0.6cm2. . LHC: clean coronaries. SHAHEED: severe with likely bicuspid. Patient will need TAVR and this is being arranged. Home today and cardiology arranging to have TAVR procedure is [place] (2) Head trauma: Code(s): S09.90XA - Unspecified injury of head, initial encounter Status: Acute Assessment and Plan: Patient fell on Monday causing facial trauma. Reportedly due to vertigo, which she suffers from on occasion. Critical may be the etiology of her dizziness. PD and/or UTI may be contributing to her fall. She is also of schedule Xanax. Was up and about with PT before discharge (3) Urinary tract infection: Qualifiers: Hematuria presence: with hematuria Urinary tract infection type: acute cystitis Qualified Code(s): N30.01 - Acute cystitis with hematuria Code(s): N39.0 - Urinary tract infection, site not specified Status: Acute Assessment and Plan: UA noted. UCx growing Proteus sensitive to ceftriaxone. Receive 6 days of IV ceftriaxone while here deemed full course treatment. (4) Generalized weakness: Code(s): R53.1 - Weakness Status: Acute Assessment and Plan: Chronically deconditioned but exacerbated by UTI and from critical +/- PD. Continue PT/OT. Continue fall precautions. And physical therapy while here and was returned to care for family (5) Rhabdomyolysis: Qualifiers: Rhabdomyolysis type: non-traumatic Qualified Code(s): M62.82 - Rhabdomyolysis Code(s): M62.82 - Rhabdomyolysis Status: Acute Assessment and Plan: Patient was reportedly in the bathtub for more than 12 hours due to the inability [place] [address] [place] now down to 391 at discharge. AST elevation related to the rhabdo. She is voiding well. Renal function remaining normal. . No evidence of fluid overload. Continue to hold statin on discharge especially with normal coronaries. (6) Hyponatremia: Code(s): E87.1 - Hypo-osmolality and hyponatremia Status: Acute Assessment and Plan: On review of previous records, it looks like her sodium is always a bit low. Na level stable and within her baseline sodium 137 at discharge. Continue to follow. (7) Parkinson disease: Code(s): G20 - Parkinson's disease Status: Acute Assessment and Plan: Stable. Probably contributing to her falls. Bedside swallow evaluation okay. Continue carbidopa-levodopa and entapacone. (8) Essential hypertension: Code(s): I10 - Essential (primary) hypertension Status: Acute Assessment and Plan: BP reviewed on 09/10/19. BP better controlled after Lasix so may be due to fluids. Will continue her current antihypertensives with metoprolol and monitor closely. (9) Fracture of surgical neck of right humerus: Qualifiers: Encounter type: subsequent encounter Fracture alignment: displaced Fracture healing: with routine healing Fracture morphology: 2-part Fracture type: closed Qualified Code(s): S42.221D - 2-part displaced fracture of surgical neck of right humerus, subsequent encounter for fracture with routine healing Code(s): S42.211A - Unspecified displaced fracture of surgical neck of right humerus, initial encounter for closed fracture Status: Acute Assessment and Plan: Recent right humeral fracture. She states she has been released by her surgeon. (10) Frequent falls: Code(s): R29.6 - Repeated falls Status: Acute Assessment and Plan: As above. DS: Summary Hospital Course Hos
== END 2019-09-10 13:15 | disposition home health service (06) | DRG 287 ==
LOC: ANHED 11:58 → ANH3MEDSUR 15:36
PROVIDERS: Physician Assistant; Specialist; Admitting Provider Internal Medicine; Emergency Provider General Practice; PCP Family Medicine; Visit Provider Internal Medicine
PROC: 4A023N7 Measurement of Cardiac Sampling and Pressure, Left Heart, Percutaneous Approach (ICD-10-PCS; CPT 93452; principal; 2019-09-09 13:00)
PROC: B24BZZ4 Ultrasonography of Heart with Aorta, Transesophageal (ICD-10-PCS; 2019-09-09 13:00)
PROC: B24BZZ4 Ultrasonography of Heart with Aorta, Transesophageal (ICD-10-PCS; CPT 93312; 2019-09-09 13:00)
DX: I35.0 Nonrheumatic aortic (valve) stenosis (principal); M62.82 Rhabdomyolysis; E87.1 Hypo-osmolality and hyponatremia; N39.0 Urinary tract infection, site not specified; B96.4 Proteus (mirabilis) (morganii) as the cause of diseases classified elsewhere; R42 Dizziness and giddiness; G20 Parkinson's disease; I10 Essential (primary) hypertension; R29.6 Repeated falls; S09.90XA Unspecified injury of head, initial encounter; M81.0 Age-related osteoporosis without current pathological fracture; G25.81 Restless legs syndrome; E78.5 Hyperlipidemia, unspecified; R74.0 Nonspecific elevation of levels of transaminase and lactic acid dehydrogenase [LDH]; S09.93XA Unspecified injury of face, initial encounter; W19.XXXA Unspecified fall, initial encounter; Z98.42 Cataract extraction status, left eye; Z98.41 Cataract extraction status, right eye; Z98.1 Arthrodesis status
CPT/HCPCS: 36415; 51701; 70450; 71045; 72125; 73030; 73060; 80048; 80053; 80061; 80069; 80307; 81001; 82140; 82550; 83735; 83880; 84295; 84443; 84484; 85025; 85027; 85610; 85730; 87077; 87086; 87088; 87186; 92610; 93005; 93306; 93312; 93320; 93325; 93458; 93880; 93970; 96361; 96365; 97110; 97116; 97161; 97166; 97530; 99285; A9270; C1760; C1887; C1894; G0269; J0696; J1644; J1940; J2250; J3010; J7030; J7120

== ENCOUNTER 2019-09-16 09:03 | Inpatient (IN) | payer MEDICARE, SELFPAY ==
[2019-09-16] VITALS (25 sets, daily range): BP systolic 126–159; BP diastolic 73–136; PULSE 79–106; RESP 16–24; TEMP 36.5–37.3; O2SAT 91–100; BMI 36.6
--- NOTE | ~2019-09-16 | XR_ITS ---
EXAMINATION: XR wrist LT 2V DATE: 09/16/2019 10:47 INDICATION: Left wrist pain and swelling TECHNIQUE: Posteroanterior, oblique, and lateral views of the left wrist were obtained. COMPARISON: none FINDINGS: Alignment is normal. No fracture. Mild osteoarthritis at the triscaphe, first carpometacarpal and pis otriquetral joints. Mild soft tissue swelling along the dorsal and ulnar sides of the wrist. No corti ezekiel erosions or periosteal reaction. IMPRESSION: 1. 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 2. Soft tissue swelling along the dorsal/ulnar side of the wrist/distal forearm without underlying os seous abnormality. Reviewed, dictated and finalized at location A. IMPRESSION: 1. 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 2. Soft tissue swelling along the dorsal/ulnar side of the wrist/distal forearm without underlying osseous abnormality.
--- NOTE | 2019-09-16 09:15 | ECG_ITS ---
Measurements Intervals [place] Rate: 91 P: 43 [place]: 166 QRS: -14 QRSD: 81 T: 20 QT: 362 QTc: 447 Interpretive Statements SINUS RHYTHM LEFT VENTRICULAR HYPERTROPHY AND ST-T CHANGE BORDERLINE ECG Electronically Signed On 09-16-2019 11:22:52 CDT by Hakan Alcaraz D.O.
--- NOTE | 2019-09-16 09:17 | ED.GENADULT ---
HPI - General Adult General Chief complaint: Weakness Stated complaint: Weakness Time Seen by Provider: 09/16/19 09:04 History of Present Illness HPI narrative: Patient presents via EMS with her daughter after falling with her walker into a chair. She was stuck with her legs twisted in the legs of the walker and her left arm and left trunk and left upper leg against the side of the chair. Her daughter provided a photograph of this strange encounter and position. Patient was unable to get herself out of this predicament, and remained there since 1 AM. She takes Parkinson's medicine and has not had her medicine since yesterday. She denies pain unless you move her left hand and then it is a 1 or 2 out of 10. She has no confusion. She had no loss of consciousness. She has not been sick. She does not feel weak. She was here a week or so ago and had a urinary tract infection. She still lives independently. Onset (ago): hour(s) Location: upper extremity and lower extremity Radiation: non-radiation Severity: mild Pain Consistency: intermittent Relieving factors: immobilization Exacerbating factors: other (Palpitation) Associated symptoms: denies other symptoms Related Data Home Medications Medication Instructions Recorded Confirmed alprazolam 0.25 mg tablet 0.25 mg PO TID tablet 03/13/19 09/05/19 buspirone 15 mg tablet 10 mg PO BID tablet 03/13/19 09/05/19 carbidopa ER 50 mg-levodopa 200 mg 50 tablet PO QID 03/13/19 09/06/19 tablet,extended release citalopram 20 mg tablet 20 mg PO DAILY tablet 03/13/19 09/05/19 entacapone 200 mg tablet 200 mg PO QID tablet 03/13/19 09/05/19 metoprolol tartrate 50 mg tablet 50 mg PO BID tablet 03/13/19 09/05/19 ropinirole 5 mg tablet 5 mg PO TID tablet 03/13/19 09/05/19 carbidopa-levodopa 10 tablet PO DAILY 09/05/19 09/06/19 omeprazole 40 mg PO DAILY 09/05/19 09/05/19 Allergies Allergy/AdvReac Type Severity Reaction Status Date / Time No Known Allergies Allergy Verified 09/16/19 09:14 Review of Systems Review of Systems: Narrative: CONSTITUTIONAL: Denies fever, chills, or sweats. EYES: Denies visual changes, redness, or discharge. ENT: Denies rhinorrhea, congestion, sore throat, or otalgia. CARDIOVASCULAR: Denies chest pain, palpitations, or edema. RESPIRATORY: Denies cough or dyspnea. GASTROINTESTINAL: Denies abdominal pain, nausea, vomiting, or diarrhea. GENITOURINARY: Denies dysuria or hematuria. SKIN: Denies rash or itching. MUSCULOSKELETAL: Denies back pain, joint pain, but has pain in the left hand when moved . NEUROLOGIC: Denies headache, numbness, or weakness. PSYCHIATRIC: Denies anxiety or depression. [facility] Past Medical History Medical History Anxiety Essential hypertension Lumbar burst fracture (~2017) Status post lumbar fusion at L1-L2. Osteoporosis Parkinson disease Restless leg syndrome Right humeral fracture (~12/2018) Treated nonsurgically and followed by Dr. Lagos. Imaging 06/04/2019 showed reasonable alignment with abundant maturing bone at fracture site. Surgical History Surgical History History of cataract extraction History of foot surgery Right plantar fasciitis release. History of lumbar fusion (~02/2018) L1-L2. Social History Social History Social History: The patient lives in an apartment in . She denies alcohol, tobacco, and drug use. She has 1 daughter, Nina Singletary, who is her healthcare power of traffic law attorney. The patient wishes to be a full code. Ambulates with a walker. Spiritual care concerns: No Exam Narrative: Exam Narrative: GENERAL: Well-appearing, well-nourished, and in no acute distress. Bruises on her left face. Hair unkempt. HEAD: Normocephalic, atraumatic. EYES: PERRLA and EOMI. ENT: Nares clear, no rhinorrhea or epistaxis. Mucous membranes moist. N
[2019-09-16] MEDS: SODIUM CHLORIDE 0.9% IV 1,000 ML 500 ML IV CONT (09:40)
[2019-09-16 10:10] LABS: Add Urine Microscopic? YES; Appearance Urine Clear (Clear); Bacteria Urine Trace /hpf; Bilirubin Urine Negative (Negative); Blood Urine 2+ (Negative); Color Urine Amber (Yellow); Glucose Urine UA Negative (Negative); Ketones Urine Trace mg/dL (Negative); Leukocyte Esterase Ur Negative LEU/UL (Negative); Mucus Urine Rare /lpf; Nitrate Urine Negative (Negative); Protein Urine 1+ mg/dL (Negative); RBC Urine 0-2 /hpf (0-2); Specific Grav Ur 1.024 (1.001-1.035); Squamous Epithelial Cell Urine Occasional /hpf (Few); Urobilinogen Urine Negative mg/dL (<2.0); WBC Urine 0-3 /hpf
[2019-09-16 10:28] LABS: Alanine Aminotransferase 11 U/L (4-35); Albumin Level 2.8 g/dL (3.5-5.1); Alkaline Phosphatase 64 U/L (38-126); Aspartate Amino Transferase 37 U/L (14-36); Bilirubin,Total 0.7 mg/dL (0.2-1.3); Blood Urea Nitrogen 21 mg/dL (7-17); Calcium 6.7 mg/dL (8.4-10.2); Carbon Dioxide 14 mmol/L (22-30); Chloride 115 mmol/L (98-107); Creatine Kinase 1507 U/L (30-135); Estimated Glomerular Filt Rate > 60; Glucose 89 mg/dL (65-105); Potassium 3.3 mmol/L (3.4-5.0); Sodium 137 mmol/L (137-145)
[2019-09-16 10:39] LABS: Troponin I < 0.012 ng/mL (0.000-0.034)
[2019-09-16 11:35] LABS: Basophils Absolute Auto 0.1 K/mm3 (0.0-0.1); Basophils Percent Auto 0.4 % (0.2-1.2); Hematocrit 38.9 % (37.0-47.0); Hemoglobin 12.6 g/dL (12.0-15.0); Immature Granulocyte Absolute 0.05 K/mm3 (0.00-0.031); Immature Granulocyte Percent A 0.4 % (0-0.5); Lymphocytes Absolute Auto 1.14 K/mm3 (0.9-3.2); Mean Corpuscular HGB Conc 32.4 g/dl (32-36); Mean Corpuscular Hemoglobin 27.6 pg (26-34); Mean Corpuscular Volume 85.3 fl (80-100); Mean Platelet Volume 9.5 fl (7.4-10.4); Monocytes Percent Auto 7.6 % (2.6-8.5); Neutrophils Absolute Auto 10.4 K/mm3 (1.3-6.7); Neutrophils Percent Auto 82.6 % (45.5-73.1); Platelet Count Result 295 k/mm3 (150-375); Red Blood Count 4.56 M/mm3 (4.2-5.4); Red Cell Distribution Width 13.2 % (11.5-14.5); White Blood Count 12.6 K/mm3 (4.5-10.0)
[2019-09-16 11:47] LABS: Lactic Acid Reflex 0.9 mmol/L (0.7-2.1)
--- NOTE | 2019-09-16 12:47 | ADMGEN ---
This patient, Nina Hudson, was admitted to 3 [facility] Surg Room 322-01 @ 1245. Patient/family oriented to hospital policies and general routines including ID bracelet, bed and alarms, visiting hours, pain management, procedures, bathroom and other care routines, personal items, smoking policy, room service/diet, and visiting hours. Valuables list has been completed. Information on how to activate the Rapid Response Team has been discussed. Patient/Family are encouraged to report perceived risks to care and to ask questions if they do not understand what they are told or what they should do.
[2019-09-16] MEDS: ACETAMINOPHEN 500 MG TABLET 1000 MG PO (13:29)
[2019-09-16] MEDS: SODIUM CHLORIDE 0.9% IV 1,000 ML 150 ML IV CONT (13:33)
--- NOTE | 2019-09-16 20:33 | PM.IMHP ---
H&P: HPI History of Present Illness Chief complaint: rhabdomylias Narrative: Nina Hudson is a 69 year old female this patient was just discharged on the 16 of this month. The patient was found to have non rheumatic aortic stenosis severely with a SHAHEED patient was told she is a candidate for TAVR and cardiology's arranging for her to have this procedure in [place]. The patient has had dizziness and multiple falls due to this. The patient lives in a custodial apartment. The patient had rhabdo the last admission and her CK came down to the 300s when she was discharged. Patient was treated for UTI at that time. The patient had a Proteus that was sensitive to the ceftriaxone that she received. His chronically Decondition. The patient lives home alone. She stated that she got wrapped up and her walker her last night and started to fall and landed her chair and has been in her chair since 1:00 a.m. this morning. Up out of the chair due to Parkinson's medicine she has difficulty ambulating with the medication and her diagnosis of Parkinson's. She did not hit her head or lose consciousness. Her total creatinine kinase was 1507. It was 391 when she left here on the . It was 1914 on the . Patient has bruises on her arms and her right upper thigh and right knee. The patient stated she has been in multiple rehab facilities including [facility] but [facility]. The patient was started on IV fluids in the emergency room and ordered Tylenol. Date of service is 09/16/2019 Review of Systems Review of Systems: Narrative: She denies any fever chills. No nausea no vomiting no diarrhea. No chest pain no palpitations. No shortness of breath. All systems reviewed & are unremarkable except as noted in HPI and below Constitutional: Constitutional: Reports as per HPI and Reports no additional constitutional complaints Eyes: Eyes: Reports as per HPI and Reports no additional eye complaints ENT: Reports system reviewed and no additional complaints, except as documented and Reports Normal hearing present Cardiovascular: Cardiovascular: Reports no additional cardiovascular complaints Respiratory: Respiratory: Reports no additional respiratory complaints and Reports no additional respiratory complaints Gastrointestinal: Gastrointestinal: Reports as per HPI and Reports no additional gastrointestinal complaints Musculoskeletal: Musculoskeletal: Reports no additional musculoskeletal complaints Integumentary/Breasts: Skin/Breast: Reports system reviewed and no additional complaints, except as docu and Reports as per HPI Neurologic: Reports system reviewed and no additional complaints, except as documented, Reports as per HPI and Reports Normal hearing present Psychiatric: Psychiatric: Reports no additional psychiatric complaints and Reports as per HPI Endocrine: Endocrine: Reports no additional endocrine complaints Hematologic/Lymphatic: Hematologic/Lymphatic: Reports no additional hematologic/lymphatic complaints Allergic/Immunologic: Allergic/Immunologic: Reports no additional allergic/immunologic complaints PMFSH Past Medical History Medical History (Updated 09/16/19 @ 20:47 by Carmencita Villatoro NP) Anxiety Essential hypertension Lumbar burst fracture (~2017) Status post lumbar fusion at L1-L2. Osteoporosis Parkinson disease Restless leg syndrome Right humeral fracture (~12/2018) Treated nonsurgically and followed by Dr. Lagos. Imaging 06/04/2019 showed reasonable alignment with abundant maturing bone at fracture site. Surgical History Surgical History History of cataract extraction History of foot surgery Right plantar fasciitis release. History of lumbar fusion (~02/2018) L1-L2. Family History Family History Mother Pulmonary fibrosis Father Alzheimer's dementia Social
[2019-09-16 21:37] LABS: Creatine Kinase MB 33.6 ng/mL (0.0-2.37)
[2019-09-16] MEDS: CARBIDOPA/LEVODOPA 25/100 MG CR TABLET 2 TABLET PO (22:10)
[2019-09-16] MEDS: ENTACAPONE 200 MG TABLET PO (22:11)
[2019-09-16] MEDS: METOPROLOL TARTRATE 50 MG TAB PO (22:11)
[2019-09-17] MEDS: CARBIDOPA/LEVODOPA 25/100 MG CR TABLET 2 TABLET PO ×4 (05:49→19:24)
[2019-09-17 06:00] VITALS: BP 126/69; PULSE 65; RESP 18; TEMP 36.8; O2SAT 94
[2019-09-17 06:49] LABS: Alanine Aminotransferase 6 U/L (4-35); Albumin Level 3.5 g/dL (3.5-5.1); Alkaline Phosphatase 80 U/L (38-126); Aspartate Amino Transferase 74 U/L (14-36); Bilirubin,Total 1.2 mg/dL (0.2-1.3); Blood Urea Nitrogen 18 mg/dL (7-17); CRP 2.4 mg/dL (<1.0); Calcium 8.5 mg/dL (8.4-10.2); Carbon Dioxide 26 mmol/L (22-30); Chloride 105 mmol/L (98-107); Estimated CRCL calculation 61 ml/min; Estimated Glomerular Filt Rate > 60; Glucose 95 mg/dL (65-105); Potassium 3.7 mmol/L (3.4-5.0); Sodium 136 mmol/L (137-145)
[2019-09-17 06:53] LABS: Creatine Kinase MB 16.7 ng/mL (0.0-2.37)
[2019-09-17 08:52] LABS: Creatine Kinase 2829 U/L (30-135)
[2019-09-17] MEDS: ALPRAZOLAM 0.25 MG TABLET PO ×3 (09:50→17:36)
[2019-09-17] MEDS: ENTACAPONE 200 MG TABLET PO ×4 (09:51→21:17)
[2019-09-17] MEDS: CARBIDOPA/LEVODOPA 10/100 MG TABLET 1 TABLET PO (09:52)
[2019-09-17] MEDS: CITALOPRAM HYDROBROMIDE 20 MG TABLET PO (09:52)
[2019-09-17] MEDS: busPIRone HCL 5 MG TABLET 10 MG PO ×2 (09:52→17:37)
[2019-09-17 09:53] VITALS: PULSE 65
[2019-09-17] MEDS: METOPROLOL TARTRATE 50 MG TAB PO (09:53)
[2019-09-17] MEDS: PANTOPRAZOLE 40 MG TABLET PO ×2 (09:53→21:17)
[2019-09-17 11:29] LABS: Free T4 Free Thyroxine Reflex 1.09 ng/dL (0.78-2.19)
[2019-09-17] MEDS: LACTATED RINGERS 1,000 ML 100 ML IV CONT ×2 (12:41→23:42)
[2019-09-17 12:45] LABS: Total Triiodothyronine (T3) 1.02 NG/ML (0.97-1.69)
[2019-09-17 14:00] VITALS: BP 93/55; PULSE 73; RESP 18; TEMP 37.1; O2SAT 91
--- NOTE | 2019-09-17 16:03 | PM.IMPN ---
Progress Note: A&P Assessment and Plan (1) Rhabdomyolysis: Qualifiers: Rhabdomyolysis type: non-traumatic Qualified Code(s): M62.82 - Rhabdomyolysis Code(s): M62.82 - Rhabdomyolysis Status: Acute Assessment and Plan: -----patient CK went up today and fluids restarted. Will monitor CK tomorrow and hopefully discharge once it is under 1000. Her bp is soft, so will hold off on lasix and continue fluids. PT/OT. Patient needs the call alert button. Patient lives home alone and is not safe due to her multiple falls. She does have Parkinson's and she has a severe aortic stenosis. The patient tells me she has been in multiple rehabs. She was just discharged a few days ago from here. (2) Parkinson disease: Code(s): G20 - Parkinson's disease Status: Acute Assessment and Plan: -----Continue with her carbidopa levodopa. (3) Essential hypertension: Code(s): I10 - Essential (primary) hypertension Status: Chronic Assessment and Plan: ------Continue with metoprolol, systolic parameters have been placed on metoprolol. (4) Aortic stenosis: Code(s): I35.0 - Nonrheumatic aortic (valve) stenosis Status: Chronic Assessment and Plan: -----Pt had an appointment for a consultation for a TAVR the day she fell. She will need to follow up with this JOSE RAMON then possibly rehab. (5) Anxiety: Code(s): F41.9 - Anxiety disorder, unspecified Status: Chronic Assessment and Plan: -----Continue with patient's Celexa and Xanax. Continue with BuSpar Additional Plan Restless leg syndrome continue with her Requip. Time Spent With Patient Time with patient: 25 - 35 minutes Subjective Date/time seen: 09/17/19 16:03 Interval history: Pt is a female here for a fall found to have rhabdomyolysis. Patient states that she simply had a mechanical fall and did not have any shortness of breath or chest pain with it. She was unable to get up and that she stayed there overnight. She does not have any body aches, chest pain, shortness of breath, fevers, chills, diarrhea or constipation at this time. Review of Systems Review of Systems: All systems reviewed & are unremarkable except as noted in HPI and below Exam Narrative: Exam Narrative: General: Well developed well nourished patient resting comfortably in the chair in no acute distress HEENT: normocephalic Neck: supple Neuro: Alert and oriented x4 CV:RRR with loud 3/6 systolic murmur best heard at the right 2nd intercostal space Resp:CTA no crackles Abd: Obese, Soft, non distended. No pain to palpation. Positive bowel sounds Extremities: No erythema or pain to palpation Objective Data Vital Signs Vital Signs: Vital Signs - 24 hr 09/16/19 22:00 09/16/19 22:11 09/17/19 06:00 Temperature 99.2 F 98.2 F Pulse Rate 106 H 88 65 Respiratory Rate 20 18 Blood Pressure 126/73 126/69 Pulse Oximetry 97 94 09/17/19 09:53 09/17/19 14:00 Temperature 98.7 F Pulse Rate 65 73 Respiratory Rate 18 Blood Pressure 93/55 L Pulse Oximetry 91 Intake/Output Intake/Output: Intake & Output 09/14/19 09/15/19 09/16/19 09/17/19 23:59 23:59 23:59 23:59 Intake Total 1590 1320 Balance 1590 1320 Meds/Results Medications: Active Medications Generic Name Dose Route Start Last Admin Trade Name Shahriar PRN Reason Stop Dose Admin Acetaminophen 650 mg 09/16/19 11:17 Tylenol Tablet PO Q4H PRN Mild Pain (1-3) or Fever Alprazolam 0.25 mg 09/17/19 09:00 09/17/19 12:41 Xanax PO 0.25 mg TID JUAN JOSE Administration Buspirone HCl 10 mg 09/17/19 09:00 09/17/19 09:52 Buspar PO 10 mg BID JUAN JOSE Administration Carbidopa/Levodopa 2 tablet 09/16/19 22:05 09/17/19 15:49 Sinemet Cr 25/100 Mg PO 2 tablet 0700,1100,1500,1900 JUAN JOSE Administration Carbidopa/Levodopa 1 tablet 09/17/19 09:00 09/17/19 09:52 Sinemet 10/100 Mg PO 1
[2019-09-17 21:09] VITALS: BP 98/58; PULSE 74; RESP 20; TEMP 36.8; O2SAT 90
[2019-09-18 06:00] VITALS: BP 127/74; PULSE 71; RESP 16; TEMP 36.4; O2SAT 90
[2019-09-18] MEDS: CARBIDOPA/LEVODOPA 25/100 MG CR TABLET 2 TABLET PO ×4 (06:32→17:31)
[2019-09-18 08:00] VITALS: PULSE 71; RESP 16; O2SAT 90
[2019-09-18 08:02] LABS: Hematocrit 34.7 % (37.0-47.0); Hemoglobin 10.9 g/dL (12.0-15.0); Mean Corpuscular HGB Conc 31.4 g/dl (32-36); Mean Corpuscular Hemoglobin 27.7 pg (26-34); Mean Corpuscular Volume 88.3 fl (80-100); Mean Platelet Volume 9.3 fl (7.4-10.4); Platelet Count Result 226 k/mm3 (150-375); Red Blood Count 3.93 M/mm3 (4.2-5.4); Red Cell Distribution Width 13.4 % (11.5-14.5); White Blood Count 6.7 K/mm3 (4.5-10.0)
[2019-09-18 08:16] LABS: Alanine Aminotransferase 6 U/L (4-35); Albumin Level 3.5 g/dL (3.5-5.1); Alkaline Phosphatase 82 U/L (38-126); Aspartate Amino Transferase 54 U/L (14-36); Bilirubin,Total 0.9 mg/dL (0.2-1.3); Blood Urea Nitrogen 18 mg/dL (7-17); Calcium 8.6 mg/dL (8.4-10.2); Carbon Dioxide 27 mmol/L (22-30); Chloride 104 mmol/L (98-107); Creatine Kinase 1532 U/L (30-135); Estimated CRCL calculation 61 ml/min; Estimated Glomerular Filt Rate > 60; Glucose 98 mg/dL (65-105); Potassium 3.8 mmol/L (3.4-5.0); Sodium 135 mmol/L (137-145)
[2019-09-18] MEDS: ENTACAPONE 200 MG TABLET PO ×4 (10:37→21:28)
[2019-09-18] MEDS: busPIRone HCL 5 MG TABLET 10 MG PO ×2 (10:38→17:27)
[2019-09-18] MEDS: CITALOPRAM HYDROBROMIDE 20 MG TABLET PO (10:38)
[2019-09-18] MEDS: PANTOPRAZOLE 40 MG TABLET PO ×2 (10:41→21:27)
[2019-09-18] MEDS: METOPROLOL TARTRATE 50 MG TAB PO ×2 (10:43→21:27)
[2019-09-18] MEDS: ALPRAZOLAM 0.25 MG TABLET PO ×3 (10:44→17:28)
[2019-09-18] MEDS: LACTATED RINGERS 1,000 ML 100 ML IV CONT ×2 (10:44→17:29)
[2019-09-18] MEDS: CARBIDOPA/LEVODOPA 10/100 MG TABLET 1 TABLET PO (10:44)
--- NOTE | 2019-09-18 13:28 | PM.IMPN ---
Progress Note: A&P Assessment and Plan (1) Rhabdomyolysis: Qualifiers: Rhabdomyolysis type: non-traumatic Qualified Code(s): M62.82 - Rhabdomyolysis Code(s): M62.82 - Rhabdomyolysis Status: Acute Assessment and Plan: -----CK 1500. Continue IV fluids. No crackles heard on exam. Will monitor CK tomorrow and hopefully discharge once it is under 1000. Her bp has improved. Continue PT/OT. Patient needs the call alert button. She lives home alone and is not safe due to her multiple falls. She does have Parkinson's and she has a severe aortic stenosis. The patient tells me she has been in multiple rehabs and refuses to go to another 1 until she gets her valve replaced. I asked her she had family to live with his she said she may be able to stay with her daughter. She does with therapy today and call her daughter tomorrow with our ecommendations. (2) Parkinson disease: Code(s): G20 - Parkinson's disease Status: Acute Assessment and Plan: -----Continue with her carbidopa levodopa. (3) Essential hypertension: Code(s): I10 - Essential (primary) hypertension Status: Chronic Assessment and Plan: ------Continue with metoprolol, systolic parameters have been placed on metoprolol. (4) Aortic stenosis: Code(s): I35.0 - Nonrheumatic aortic (valve) stenosis Status: Chronic Assessment and Plan: -----Pt had an appointment for a consultation for a TAVR the day she fell. She will need to follow up with this JOSE RAMON then possibly rehab. (5) Anxiety: Code(s): F41.9 - Anxiety disorder, unspecified Status: Chronic Assessment and Plan: -----Continue with patient's Celexa and Xanax. Continue with BuSpar Additional Plan Restless leg syndrome continue with her Requip. Subjective Date/time seen: 09/18/19 13:28 Interval history: Pt is a female here for a fall found to have rhabdomyolysis. Patient was seen today and is unhappy because she feels like she has an exacerbation of her Parkinson's symptoms because her medications were not given at correct times. She is now feeling little bit better with the medications. She has some mild joint pain but other than that, no issues at this time. She said her IV infiltrated on her right arm. She denies chest pain, shortness of breath, fevers, chills, abdominal pain, nausea or vomiting. Exam Narrative: Exam Narrative: General: Well developed well nourished patient resting comfortably in the chair in no acute distress HEENT: normocephalic Neck: supple Neuro: Alert and oriented x4 CV:RRR with 3/6 systolic murmur best heard at the right 2nd intercostal space Resp: Decreased breath sounds, no crackles or rhonchi. Abd: Obese, Soft, non distended. Hernia palpated. No pain to palpation. Positive bowel sounds Extremities: No erythema or pain to palpation Objective Data Vital Signs Vital Signs: Vital Signs - 24 hr 09/17/19 14:00 09/17/19 21:09 09/18/19 06:00 Temperature 98.7 F 98.2 F 97.5 F L Pulse Rate 73 74 71 Respiratory Rate 18 20 16 Blood Pressure 93/55 L 98/58 L 127/74 Pulse Oximetry 91 90 90 09/18/19 08:00 Temperature Pulse Rate 71 Respiratory Rate 16 Blood Pressure Pulse Oximetry 90 Intake/Output Intake/Output: Intake & Output 09/15/19 09/16/19 09/17/19 09/18/19 23:59 23:59 23:59 23:59 Intake Total 1590 3810 1220 Output Total 500 400 Balance 1590 3310 820 Meds/Results Medications: Active Medications Generic Name Dose Route Start Last Admin Trade Name Freq PRN Reason Stop Dose Admin Acetaminophen 650 mg 09/16/19 11:17 Tylenol Tablet PO Q4H PRN Mild Pain (1-3) or Fever Alprazolam 0.25 mg 09/17/19 09:00 09/18/19 10:44 Xanax PO 0.25 mg TID JUAN JOSE Administration Buspirone HCl 10 mg 09/17/19 09:00 09/18/19 10:38 Buspar PO 10 mg BID JUAN JOSE Administration Carbidopa/Levodopa 2 tablet
[2019-09-18] MEDS: FUROSEMIDE INJ 40 MG/4 ML VIAL 20 MG IV PUSH (13:55)
[2019-09-18 14:00] VITALS: BP 106/62; PULSE 76; RESP 24; TEMP 36.3; O2SAT 100
[2019-09-18 21:27] VITALS: PULSE 72
[2019-09-18] MEDS: ACETAMINOPHEN 325 MG TABLET 650 MG PO (21:31)
[2019-09-18 22:00] VITALS: BP 124/72; PULSE 73; RESP 24; TEMP 36.6; O2SAT 97
[2019-09-19] MEDS: LACTATED RINGERS 1,000 ML 100 ML IV CONT (05:59)
[2019-09-19 06:00] VITALS: BP 143/75; PULSE 69; RESP 26; TEMP 36.9; O2SAT 97
[2019-09-19] MEDS: CARBIDOPA/LEVODOPA 25/100 MG CR TABLET 2 TABLET PO ×4 (06:01→18:02)
[2019-09-19 06:46] LABS: Hematocrit 34.6 % (37.0-47.0)
[2019-09-19 06:59] LABS: Blood Urea Nitrogen 16 mg/dL (7-17); Calcium 8.9 mg/dL (8.4-10.2); Carbon Dioxide 30 mmol/L (22-30); Chloride 101 mmol/L (98-107); Creatine Kinase 867 U/L (30-135); Estimated CRCL calculation 69 ml/min; Estimated Glomerular Filt Rate > 60; Glucose 100 mg/dL (65-105); Potassium 4.1 mmol/L (3.4-5.0); Sodium 135 mmol/L (137-145)
--- NOTE | 2019-09-19 07:46 | PM.IMPN ---
Progress Note: A&P Assessment and Plan (1) Rhabdomyolysis: Qualifiers: Rhabdomyolysis type: non-traumatic Qualified Code(s): M62.82 - Rhabdomyolysis Code(s): M62.82 - Rhabdomyolysis Status: Acute Assessment and Plan: -----CK 867 and pt feeling well. She is ready for discharge but her COVID screen did not come back in time for discharge. She is being discharged to SNF. IV fluids stopped. Lasix given. No crackles heard on exam. She lives home alone and is not safe due to her multiple falls. She does have Parkinson's and she has a severe aortic stenosis. Spoke with daughter about her heart condition and that she needs to have a consultation when she is discharged. (2) Parkinson disease: Code(s): G20 - Parkinson's disease Status: Acute Assessment and Plan: -----Continue with her carbidopa levodopa. (3) Essential hypertension: Code(s): I10 - Essential (primary) hypertension Status: Chronic Assessment and Plan: ------Continue with metoprolol (4) Aortic stenosis: Code(s): I35.0 - Nonrheumatic aortic (valve) stenosis Status: Chronic Assessment and Plan: -----Pt had an appointment for a consultation for a TAVR the day she fell. She will need to follow up with this JOSE RAMON then possibly rehab. (5) Anxiety: Code(s): F41.9 - Anxiety disorder, unspecified Status: Chronic Assessment and Plan: -----Continue with patient's Celexa and Xanax. Continue with BuSpar Subjective Date/time seen: 09/20/19 11:50 Interval history: Pt is a female here for a fall found to have rhabdomyolysis. Patient was seen today and has no complaints. She is having a much better day today since her parkinsons medications have been given ontime. She is not having any muscle pain. She thinks her legs are a bit more swollen than normal. She denies CP, SOB, fevers, chills, nauesa, vomiting, diarrhea or constipation. I also spoke with her daughter, Hubert, about the plan of care. Exam Narrative: Exam Narrative: General: Well developed well nourished patient resting comfortably in the chair in no acute distress HEENT: normocephalic Neck: supple Neuro: Alert and oriented x4 CV:RRR with 3/6 systolic murmur best heard at the right 2nd intercostal space Resp: Decreased breath sounds, no crackles or rhonchi. Abd: Obese, Soft, non distended. Hernia palpated. No pain to palpation. Positive bowel sounds Extremities: No erythema or pain to palpation. non pitting edema noted. Objective Data Intake/Output Intake/Output: Intake & Output 09/19/19 09/20/19 09/21/19 09/22/19 23:59 23:59 23:59 23:59 Intake Total 3549 110 Output Total 1800 750 Balance 1749 -640 Meds/Results Radiology Results: ITS Impressions Wrist X-Ray 09/16/19 10:58 IMPRESSION: 1. 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 2. Soft tissue swelling along the dorsal/ulnar side of the wrist/distal forearm without underlying osseous abnormality. Quality VTE Prophylaxis VTE prophylaxis: mechanical ordered
[2019-09-19] MEDS: CITALOPRAM HYDROBROMIDE 20 MG TABLET PO (08:52)
[2019-09-19] MEDS: CARBIDOPA/LEVODOPA 10/100 MG TABLET 1 TABLET PO (08:52)
[2019-09-19] MEDS: ALPRAZOLAM 0.25 MG TABLET PO ×3 (08:52→18:02)
[2019-09-19] MEDS: busPIRone HCL 5 MG TABLET 10 MG PO ×2 (08:52→18:02)
[2019-09-19 08:53] VITALS: PULSE 69
[2019-09-19] MEDS: METOPROLOL TARTRATE 50 MG TAB PO ×2 (08:53→21:31)
[2019-09-19] MEDS: PANTOPRAZOLE 40 MG TABLET PO ×2 (08:53→21:31)
[2019-09-19] MEDS: ENTACAPONE 200 MG TABLET PO ×4 (08:53→21:30)
[2019-09-19 13:40] VITALS: BP 113/75
[2019-09-19] MEDS: FUROSEMIDE INJ 40 MG/4 ML VIAL 20 MG IV PUSH (13:45)
[2019-09-19 14:00] VITALS: BP 115/60; PULSE 73; RESP 16; TEMP 37.1; O2SAT 93
[2019-09-19 16:31] LABS: SARS-CoV-2 RNA PCR Negative
[2019-09-19 21:31] VITALS: PULSE 71
[2019-09-19 22:00] VITALS: BP 119/92; PULSE 77; RESP 18; TEMP 36.9; O2SAT 95
[2019-09-20] MEDS: ACETAMINOPHEN 325 MG TABLET 650 MG PO (03:14)
[2019-09-20 06:00] VITALS: BP 110/56; PULSE 112; RESP 18; TEMP 36.8; O2SAT 94
[2019-09-20] MEDS: CARBIDOPA/LEVODOPA 25/100 MG CR TABLET 2 TABLET PO ×2 (06:57→12:40)
[2019-09-20] MEDS: ALPRAZOLAM 0.25 MG TABLET PO ×2 (09:01→12:40)
[2019-09-20] MEDS: busPIRone HCL 5 MG TABLET 10 MG PO (09:01)
[2019-09-20] MEDS: ENTACAPONE 200 MG TABLET PO ×2 (09:01→12:40)
[2019-09-20] MEDS: METOPROLOL TARTRATE 50 MG TAB PO (09:01)
[2019-09-20] MEDS: CITALOPRAM HYDROBROMIDE 20 MG TABLET PO (09:01)
[2019-09-20] MEDS: PANTOPRAZOLE 40 MG TABLET PO (09:01)
[2019-09-20] MEDS: CARBIDOPA/LEVODOPA 10/100 MG TABLET 1 TABLET PO (09:01)
--- NOTE | 2019-09-20 13:40 | PC.NURSE ---
Pt is A&O x 4. Pt has been discharged to [facility] from this hospital per their van. Pt has had IV removed, and discharge instructions provided. Report has been given to receiving nurse. All questions answered to the best of my ability. Pt assisted in a wheelchair by staff to the front of the building.
--- NOTE | 2019-09-20 15:58 | PM.DS ---
DS: Admitting Diagnosis Admitting Diagnosis Admitting Diagnosis: Rhabdomyolysis DS: Discharge Diagnosis Discharge Diagnosis (1) Rhabdomyolysis: Qualifiers: Rhabdomyolysis type: non-traumatic Qualified Code(s): M62.82 - Rhabdomyolysis Code(s): M62.82 - Rhabdomyolysis Status: Acute Assessment and Plan: -----CK trending down. Pt has history of multiple falls and needs placement. She was discharged to [facility]. Plan discussed with patient and daughter, Mar. (2) Parkinson disease: Code(s): G20 - Parkinson's disease Status: Acute Assessment and Plan: -----Continue with her carbidopa levodopa. (3) Essential hypertension: Code(s): I10 - Essential (primary) hypertension Status: Chronic Assessment and Plan: ------Continue with metoprolol (4) Aortic stenosis: Code(s): I35.0 - Nonrheumatic aortic (valve) stenosis Status: Chronic Assessment and Plan: -----Pt had an appointment for a consultation for a TAVR the day she fell. She will need to follow up with this JOSE RAMON then possibly rehab. (5) Anxiety: Code(s): F41.9 - Anxiety disorder, unspecified Status: Chronic Assessment and Plan: -----Continue with patient's Celexa and Xanax. Continue with BuSpar DS: Summary Hospital Course Reason for hospitalization: Found down, multiple falls Hospital Course: Patient is a 69-year-old female who presented to the hospital after her daughter found her down at her apartment. She states that her mother's has had multiple falls in the patient states that she is weak. She says that her falls are strictly mechanical a she usually gets tangled or trips. She does not recall losing consciousness or having shortness of breath prior to this. Vitals in the ER were relatively stable with the elevated blood pressure 157/104. Initial white blood cell count 12.6, hemoglobin 12.6, hematocrit 38.9, platelets 295. Sodium 137, potassium 3.3, chloride 115, CO2 14, BUN 21, creatinine 0.5. Patient CK was initially 1507 but increase the next day to 2829. Patient was admitted to the hospitalist service and received IV fluids and her renal function remained stable. Her CO2 increased to normal and her CK eventually trended down the day of discharge 867. She saw physical therapy while hospitalized and they recommended SNF. I called the daughter the day of discharge and spoke to her about the plan. The patient was educated about the worrisome signs and symptoms come back to emergency room for and she was discharged in stable condition. Status at Discharge Overall status at discharge: patient is progressing back to baseline Time Spent with Patient Time attestation: Total time spent providing and/or coordinating discharge services:34 min Time spent: Greater than 30 minutes Exam Narrative: Exam Narrative: General: Well developed well nourished patient resting comfortably in the chair in no acute distress HEENT: normocephalic Neck: supple Neuro: Alert and oriented x4 CV:RRR with 3/6 systolic murmur best heard at the right 2nd intercostal space Resp: Decreased breath sounds, no crackles or rhonchi. Abd: Obese, Soft, non distended. Hernia palpated. No pain to palpation. Positive bowel sounds Extremities: No erythema or pain to palpation. non pitting edema noted. DS: Data Data Completed and Pending Labs on day of discharge: Labs from last 24 hours 09/19/19 09/19/19 09/19/19 08:25 06:30 06:30 Hgb 11.0 L Hct 34.6 L Sodium 135 L Potassium 4.1 Chloride 101 Carbon Dioxide 30 BUN 16 Creatinine 0.70 Estim Creat Clear Calc 69 Estimated GFR > 60 Glucose 100 Calcium 8.9 Total Creatine Kinase 867 H SARS-CoV-2 RNA (RT-PCR) Pending Preliminary micro results at discharge 09/16/19 11:27 Blood Culture - Preliminary Blood 09/16/19 11:27 Blood Culture - Preliminary
--- NOTE | 2019-09-24 13:52 | PC.NURSE ---
Blood cx is negative.
== END 2019-09-20 13:30 | DRG 566 ==
LOC: ANHED 11:25 → ANH3MEDSUR 11:42
PROVIDERS: Nurse Practitioner; Admitting Provider Family Medicine; Emergency Provider Emergency Medicine; PCP Family Medicine; Visit Provider Physician Assistant
DX: T79.6XXA Traumatic ischemia of muscle, initial encounter (principal); W18.39XA Other fall on same level, initial encounter; G20 Parkinson's disease; I10 Essential (primary) hypertension; Z11.59 Encounter for screening for other viral diseases; I35.0 Nonrheumatic aortic (valve) stenosis; S40.022A Contusion of left upper arm, initial encounter; S40.021A Contusion of right upper arm, initial encounter; S70.11XA Contusion of right thigh, initial encounter; S80.01XA Contusion of right knee, initial encounter; F41.9 Anxiety disorder, unspecified; M81.0 Age-related osteoporosis without current pathological fracture; G25.81 Restless legs syndrome; Z91.81 History of falling; Z98.42 Cataract extraction status, left eye; Z98.41 Cataract extraction status, right eye; Z98.1 Arthrodesis status; Z87.891 Personal history of nicotine dependence
CPT/HCPCS: 36415; 73100; 80048; 80053; 80076; 81001; 82550; 82553; 83605; 83735; 84439; 84443; 84480; 84484; 85014; 85018; 85025; 85027; 86140; 87040; 87635; 93005; 96360; 96361; 97110; 97116; 97161; 97166; 97530; 97535; 99285; A9270; C9803; G0378; J1940; J7030; J7120; U0003

== ENCOUNTER 2020-01-19 05:47 | Observation (INO) | payer MEDICARE, SELFPAY ==
[2020-01-19] VITALS (19 sets, daily range): BP systolic 99–147; BP diastolic 46–88; PULSE 71–92; RESP 16–24; TEMP 36.1–36.6; O2SAT 85–100; BMI 38.7; BMI 36.3
--- NOTE | ~2020-01-19 | XR_ITS ---
EXAMINATION: XR chest 1V portable DATE: 01/19/2020 06:20 INDICATION: Shortness of breath. Left-sided chest pain. TECHNIQUE: frontal view of the chest was obtained. COMPARISON: Chest radiograph dated 09/05/2019 FINDINGS: Bilateral diffuse increased interstitial pattern with peripheral Melissa B-lines consistent with mild to moderate pulmonary edema. No pleural effusion or pneumothorax. The cardiomediastinal silhouette is normal. Vertebroplasties at a few levels at the thoracolumbar junction. Malunion of an old fracture at the surgical neck of the proximal right humerus. IMPRESSION: 1. Bilateral increased interstitial pattern and peripheral Melissa B-lines most likely mild to moderat e pulmonary edema with differential including less likely atelectasis or pneumonia. Reviewed, dictated and finalized at location A. IMPRESSION: 1. Bilateral increased interstitial pattern and peripheral Melissa B-lines most likely mild to moderate pulmonary edema with differential including less likely atelectasis or pneumonia.
--- NOTE | 2020-01-19 05:49 | ECG_ITS ---
Measurements Intervals [place] Rate: 91 P: 44 NE: 174 QRS: -12 QRSD: 80 T: 64 QT: 360 QTc: 445 Interpretive Statements SINUS RHYTHM EARLY PRECORDIAL R/S TRANSITION LEFT VENTRICULAR HYPERTROPHY AND ST-T CHANGE BORDERLINE ST ABNORMALITY- ANTEROLATERAL LEADS BASELINE ARTIFACT- II, III, AVR, AVF, V1 BORDERLINE ECG Electronically Signed On 01-19-2020 7:08:39 CDT by Hakan Alcaraz D.O.
--- NOTE | 2020-01-19 06:40 | ED.CHESTPAIN ---
HPI - Chest Pain General Chief Complaint: Chest Pain <Campbell Webster DO - Last Filed: 01/19/20 19:03> Stated Complaint: SOB/ CP <Campbell Webster DO - Last Filed: 01/19/20 19:03> Time Seen by Provider: 01/19/20 05:53 <Campbell Webster DO - Last Filed: 01/19/20 19:03> Source: RN notes reviewed <Campbell Webster DO - Last Filed: 01/19/20 19:03> History of Present Illness HPI narrative: Patient presents to emergency department from home via EMS for chest pain. Patient states that she was sleeping when she was awoken with pain in the left side of the chest. The pain is described as tight in nature and does not radiate and was associated with nausea. Patient also states she had shortness of breath with the episode at that time the patient called EMS when they arrived patient was noted to have oxygen saturations in the 60s and was placed on oxygen as well as given aspirin and 25 mg and a spray of nitro. Patient states the pain is resolved since she was given nitro. She states she does follow Dr Quesada for cardiology. She denies any fevers or chills vomiting diarrhea or any other symptoms. States she is chest pain-free at this time <Campbell Webster DO - Last Filed: 01/19/20 19:03> Related Data Home Medications: Home Medications Medication Instructions Recorded Confirmed alprazolam 0.25 mg tablet 0.25 mg PO TID tablet 03/13/19 01/19/20 buspirone 15 mg tablet 15 mg PO BID tablet 03/13/19 01/19/20 carbidopa ER 50 mg-levodopa 200 mg See Rx Instructions .ROUTE .COMPLEX 03/13/19 01/19/20 tablet,extended release citalopram 20 mg tablet 40 mg PO DAILY tablet 03/13/19 01/19/20 entacapone 200 mg tablet 200 mg PO QID tablet 03/13/19 01/19/20 metoprolol tartrate 50 mg tablet 50 mg PO BID tablet 03/13/19 01/19/20 ropinirole 5 mg tablet 5 mg PO TID tablet 03/13/19 01/19/20 omeprazole 40 mg PO DAILY 09/05/19 01/19/20 atorvastatin 10 mg PO DAILY 01/19/20 01/19/20 carbidopa-levodopa 1 tablet PO DAILY 01/19/20 01/19/20 <Campbell Webster, - Last Filed: 01/19/20 19:03> Allergies/Adverse Reactions: Allergies Allergy/AdvReac Type Severity Reaction Status Date / Time No Known Allergies Allergy Verified 01/19/20 07:14 <Campbell Webster DO - Last Filed: 01/19/20 19:03> Review of Systems Review of Systems: Narrative: Gen.: Denies fevers or chills ENT: Denies congestion Respiratory: Reports shortness of breath CV: See HPI GI: Denies abdominal pain nausea, emesis or diarrhea Musculoskeletal: Denies back pain or muscle pain Neuro: Denies numbness, tingling, weakness or focal weakness Skin: Denies rash Except as documented, all other systems reviewed and negative <Campbell Webster DO - Last Filed: 01/19/20 19:03> [facility] Past Medical History Medical History: Medical History (Updated 01/19/20 @ 13:11 by Rudi Pabon MD) Anxiety Aortic stenosis due to bicuspid aortic valve Essential hypertension Lumbar burst fracture (~2017) Status post lumbar fusion at L1-L2. Osteoporosis Parkinson disease Restless leg syndrome Right humeral fracture (~12/2018) Treated nonsurgically and followed by Dr. Lagos. Imaging 06/04/2019 showed reasonable alignment with abundant maturing bone at fracture site. <Campbell Webster DO - Last Filed: 01/19/20 19:03> Surgical History Surgical History: Surgical History History of cataract extraction History of foot surgery Right plantar fasciitis release. History of lumbar fusion (~02/2018) L1-L2. <Campbell Webster DO - Last Filed: 01/19/20 19:03> Family History Family History: Family History (Updated 01/19/20 @ 13:04 by Rudi Pabon MD) Mother , at age 76 Pulmonary fibrosis Father , diet age 87 Alzheimer's dementia <Campbell Webster DO - Last Filed: 01/19/20 19:03> Social History Social History: Social His
--- NOTE | 2020-01-19 06:46 | PC.NURSE ---
this rn attempted getting blood 2x, no success. valerie rn in room attempting at this time.
[2020-01-19 07:03] LABS: Basophils Absolute Auto 0.1 K/mm3 (0.0-0.1); Basophils Percent Auto 0.6 % (0.2-1.2); Eosinophils Absolute Auto 0.4 K/mm3 (0-0.3); Eosinophils Percent Auto 4.4 % (0-4.4); Hematocrit 39.1 % (37.0-47.0); Hemoglobin 12.4 g/dL (12.0-15.0); Immature Granulocyte Absolute 0.04 K/mm3 (0.00-0.031); Immature Granulocyte Percent A 0.4 % (0-0.5); Lymphocytes Percent Auto 17.2 % (18.3-44.2); Mean Corpuscular HGB Conc 31.7 g/dl (32-36); Mean Corpuscular Hemoglobin 28.4 pg (26-34); Mean Corpuscular Volume 89.5 fl (80-100); Mean Platelet Volume 9.9 fl (7.4-10.4); Monocytes Absolute Auto 0.6 K/mm3 (0.1-0.6); Monocytes Percent Auto 6.7 % (2.6-8.5); Neutrophils Absolute Auto 6.6 K/mm3 (1.3-6.7); Neutrophils Percent Auto 70.7 % (45.5-73.1); Platelet Count Result 256 k/mm3 (150-375); Red Blood Count 4.37 M/mm3 (4.2-5.4); Red Cell Distribution Width 12.9 % (11.5-14.5); White Blood Count 9.3 K/mm3 (4.5-10.0)
[2020-01-19 07:13] LABS: INR 0.9; Partial Thromboplastin Time 25.2 SECONDS (22.3-36.8); Prothrombin Time 12.2 Seconds (11.1-14.7)
[2020-01-19 07:17] LABS: Anion Gap 4 mmol/L (8-16); Blood Urea Nitrogen 32 mg/dL (7-17); Carbon Dioxide 33 mmol/L (22-30); Chloride 103 mmol/L (98-107); Estimated CRCL calculation 65 ml/min; Estimated Glomerular Filt Rate > 60; Glucose 111 mg/dL (65-105); Potassium 4.4 mmol/L (3.4-5.0); Sodium 140 mmol/L (137-145)
[2020-01-19 07:20] LABS: Alkaline Phosphatase 154 U/L (38-126); Aspartate Amino Transferase 19 U/L (14-36); Bilirubin,Total 0.6 mg/dL (0.2-1.3); Lipase 51 U/L (23-300)
[2020-01-19 07:29] LABS: NT Pro B Type Natriuretic Pept 1510 PG/ML (5-100); Troponin I < 0.012 ng/mL (0.000-0.034)
[2020-01-19 07:46] LABS: Alanine Aminotransferase < 6 U/L (4-35)
[2020-01-19 09:25] LABS: Add Urine Microscopic? YES; Appearance Urine Clear (Clear); Bilirubin Urine Negative (Negative); Blood Urine Negative (Negative); Color Urine Amber (Yellow); Glucose Urine UA Negative (Negative); Ketones Urine Trace mg/dL (Negative); Leukocyte Esterase Ur 1+ LEU/UL (Negative); Mucus Urine Rare /lpf; Nitrate Urine Negative (Negative); Protein Urine Negative (Negative); Specific Grav Ur 1.024 (1.001-1.035); Squamous Epithelial Cell Urine Few /hpf (Few); Urobilinogen Urine Negative mg/dL (<2.0)
--- NOTE | 2020-01-19 10:19 | PC.NURSE ---
Spoke with patients daughter and updated on patients condition. Family states patient is being scheduled for heart valve replacement surgery and CNE but date is undetermined. Nina cell and home [phone].
[2020-01-19 10:34] LABS: Beta HCG Quantitative 4.62 mIU/ML
[2020-01-19] MEDS: FUROSEMIDE INJ 40 MG/4 ML VIAL 20 MG IV PUSH (10:54)
[2020-01-19 11:59] LABS: Troponin I 0.061 ng/mL (0.000-0.034)
--- NOTE | 2020-01-19 12:34 | ADMGEN ---
This patient, Nina Hudson, was admitted to IMU Room 232-01. Patient/family oriented to hospital policies and general routines including ID bracelet, bed and alarms, visiting hours, pain management, procedures, bathroom and other care routines, personal items, smoking policy, room service/diet, and visiting hours. Information on how to activate the Rapid Response Team has been discussed. Patient/Family are encouraged to report perceived risks to care and to ask questions if they do not understand what they are told or what they should do.
--- NOTE | 2020-01-19 12:51 | PM.IMHP ---
H&P: HPI History of Present Illness Date/Time: 01/19/20 12:51 Chief complaint: Chest Pain/Acute CHF Narrative: date of visit . 1215 Nina Hudson is a 69 year old female with severe aortic stenosis and Parkinson's disease awoke from sleep early this a.m. with left-sided chest pain accompanied by shortness breath and nausea. She contacted EMS when they arrived she was satting in the 60s and with oxygen by the time she arrived here she was above 90 but quickly dipped to 85% on room air. She is placed on O2 at 2 L nasal cannula and given IV Lasix here. In the feild she was given sublingual nitroglycerin which seemed to help her discomfort. Her catheterization in August of this year revealed normal coronary arteries but valve area was only 0.6 centimeter squared with a gradient of 77 mm. She states that she was scheduled to see TAVR team a [facility] later this week. She has had no syncope and has not had symptoms like she experienced today prior. she is admitted for [facility] evaluation of her congestive heart failure. Review of Systems Review of Systems: Narrative: Constitutional weight has been steady appetite good no fever chills eye no double vision or scotoma mouth no pharyngitis laryngitis pulmonary no shortness of breath wheezing or cough CV prior to present illness no palpitations or chest discomfort GI no melena hematochezia diarrhea or constipation extremities without edema integument no skin breakdown rashes psych affect pleasant and appropriate PMFSH Past Medical History Medical History (Updated 01/19/20 @ 13:11 by Rudi Pabon MD) Anxiety Aortic stenosis due to bicuspid aortic valve Essential hypertension Lumbar burst fracture (~2017) Status post lumbar fusion at L1-L2. Osteoporosis Parkinson disease Restless leg syndrome Right humeral fracture (~12/2018) Treated nonsurgically and followed by Dr. Lagos. Imaging 06/04/2019 showed reasonable alignment with abundant maturing bone at fracture site. Surgical History Surgical History History of cataract extraction History of foot surgery Right plantar fasciitis release. History of lumbar fusion (~02/2018) L1-L2. Family History Family History (Updated 01/19/20 @ 13:04 by Rudi Pabon MD) Mother , at age 76 Pulmonary fibrosis Father , diet age 87 Alzheimer's dementia Social History Social History Social History: The patient lives in an apartment alone in [place], [place]. She denies alcohol, tobacco, and drug use. She has 1 daughter, Nina Singletary, who is her healthcare power of prosecuting attorney. The patient wishes to be a full code. Ambulates with a walker. The patient is disabled. 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 She is a former smoker. Smoking status: Never smoker Tobacco type: cigarettes Alcohol intake: former Substance use: never Substance use type: does not use Gender identity (if verbalized by the patient): Female Spiritual care concerns: No Meds Home Medications and Allergies Home Medications Medication Instructions Recorded Confirmed Type alprazolam 0.25 mg tablet 0.25 mg PO TID tablet 03/13/19 01/19/20 History buspirone 15 mg tablet 15 mg PO BID tablet 03/13/19 01/19/20 History carbidopa ER 50 mg-levodopa 200 mg See Rx Instructions .ROUTE .COMPLEX 03/13/19 01/19/20 History tablet,extended release citalopram 20 mg tablet 40 mg PO DAILY tablet 03/13/19 01/19/20 History entacapone 200 mg tablet 200 mg PO QID tablet 03/13/19 01/19/20 History metoprolol tartrate 50 mg tablet 50 mg PO BID tablet 03/13/19 01/19/20 History ropinirole 5 mg tablet 5 mg PO TID tablet 03/13/19 01/19/20 History omeprazole 40 mg PO DAILY 09/05/19 01/19/20 History atorvastatin 10 mg PO DAILY 01/19/20 01/19/20 History carbidop
[2020-01-19] MEDS: rOPINIRole HCL 1 MG TABLET 5 MG PO ×2 (13:26→17:29)
[2020-01-19] MEDS: CARBIDOPA/LEVODOPA 10/100 MG TABLET 1 TABLET PO (13:27)
[2020-01-19] MEDS: ENTACAPONE 200 MG TABLET PO ×3 (13:27→21:16)
[2020-01-19] MEDS: CARBIDOPA/LEVODOPA 25/100 MG CR TABLET PO ×3 (13:27→21:16)
[2020-01-19] MEDS: METOPROLOL TARTRATE 25 MG TABLET PO (13:27)
[2020-01-19] MEDS: METOPROLOL TARTRATE 50 MG TAB PO ×2 (13:27→21:15)
[2020-01-19] MEDS: POTASSIUM CHLORIDE 20 MEQ TABLET PO (13:29)
[2020-01-19] MEDS: ALPRAZolam (*CRX) 0.25 MG TABLET PO ×2 (13:30→17:29)
[2020-01-19 14:50] LABS: Troponin I 0.071 ng/mL (0.000-0.034)
--- NOTE | 2020-01-19 15:12 | PCPTNOTE ---
attempted to see pt for PT evaluation about 1300, she was just receiving her lunch and wanted to eat; unable to perform PT eval.
[2020-01-19] MEDS: ENOXAPARIN 40 MG/0.4 ML SYRINGE SUB-Q (21:14)
[2020-01-19] MEDS: busPIRone HCL 5 MG TABLET 15 MG PO (21:15)
[2020-01-19] MEDS: PANTOPRAZOLE 40 MG TABLET PO (21:16)
[2020-01-20] VITALS (15 sets, daily range): BP systolic 82–123; BP diastolic 46–71; PULSE 67–76; RESP 16–24; TEMP 35.9–36.4; O2SAT 92–99
[2020-01-20 05:48] LABS: Anion Gap 2 mmol/L (8-16); Blood Urea Nitrogen 22 mg/dL (7-17); Calcium 8.7 mg/dL (8.4-10.2); Carbon Dioxide 30 mmol/L (22-30); Chloride 105 mmol/L (98-107); Estimated CRCL calculation 62 ml/min; Estimated Glomerular Filt Rate > 60; Glucose 99 mg/dL (65-105); Potassium 3.9 mmol/L (3.4-5.0); Sodium 137 mmol/L (137-145)
[2020-01-20] MEDS: CARBIDOPA/LEVODOPA 25/100 MG CR TABLET PO ×5 (06:10→22:34)
--- NOTE | 2020-01-20 08:32 | PM.CNCAR ---
Assessment and Plan Assessment and plan (1) Diastolic CHF due to valvular disease: Code(s): I50.30 - Unspecified diastolic (congestive) heart failure; I38 - Endocarditis, valve unspecified Status: Acute Assessment and Plan: She has new onset CHF likely due to her underlying severe/critical . Agree with lasix on once a day scheduled. She is naive to lasix and will need to avoid overdiuresis as she is pre load dependent with severe Continue home dose of Metoprolol. Avoid vasodilators (2) Critical aortic valve stenosis: Code(s): I35.0 - Nonrheumatic aortic (valve) stenosis Status: Acute Assessment and Plan: She is scheduled to see CT surgery this coming . Now with new onset CHF will need arrangement sooner for surgical AVR (or TAVR if surgical risk felt to be high. She was already seen by interventional cardiology but TAVR was felt to be less than ideal given bicuspid valve) (3) Parkinson disease: Code(s): G20 - Parkinson's disease Status: Chronic History of Present Illness History of Present Illness Consult date/time: 01/20/20 08:32 69 y/o female with h/o HTN, critical aortic valve stenosis diagnosed in August of this year (Max velocity 5.7 m/s and mean gradient of 77 mmHg, valve area 0.6 cm2) . At that time she underwent LHC with no significant CAD also had SHAHEED that confirmed critical stenosis and also showed the valve was bicuspid. She was seen by interventional cardiology for consideration of TAVR but given the fact that her valve is bicuspid, she was referred to see CT surgery for consideration of surgical aortic valve replacement. She presents now with chest pain and was noted to be hypoxic on admission. Her chest X ray showed pulmonary edema new compared to Xray last admission. Her TN pro BNP is 1500. Her troponin is borderline elevated at 0.06. EKG shows sinus rhythm, LVH with repolarization changes. She received lasix, feels better now. Weaned off oxygen via nasal cannula. Reason For Visit: Chest Pain/Acute CHF Review of Systems Review of Systems: All systems reviewed & are unremarkable except as noted in HPI and below Constitutional: Constitutional: Denies fatigue and Denies headache(s) Eyes: Eyes: Denies blurry vision ENT: Reports Normal hearing present and Denies headache(s) Cardiovascular: Cardiovascular: Denies chest pain, Denies diaphoresis, Denies pedal edema, Denies leg edema, Denies lightheadedness, Denies palpitations and Denies dyspnea Respiratory: Respiratory: Denies cough and Denies dyspnea Gastrointestinal: Gastrointestinal: Denies abdominal pain Musculoskeletal: Musculoskeletal: Denies back pain Neurologic: Reports Normal hearing present and Denies headache(s) Psychiatric: Psychiatric: Denies anxiety Endocrine: Endocrine: Denies fatigue and Denies palpitations PMF Past Medical History Medical History (Updated 01/20/20 @ 09:05 by Celeste Antunez MD) Anxiety Aortic stenosis due to bicuspid aortic valve Essential hypertension Lumbar burst fracture (~2017) Status post lumbar fusion at L1-L2. Osteoporosis Parkinson disease Restless leg syndrome Right humeral fracture (~12/2018) Treated nonsurgically and followed by Dr. Lagos. Imaging 06/04/2019 showed reasonable alignment with abundant maturing bone at fracture site. Surgical History Surgical History History of cataract extraction History of foot surgery Right plantar fasciitis release. History of lumbar fusion (~02/2018) L1-L2. Family History Family History (Updated 01/19/20 @ 13:04 by Rudi Pabon MD) Mother , at age 76 Pulmonary fibrosis Father , diet age 87 Alzheimer's dementia Social History Social History Social History: The patient lives in an apartment alone in [place], [place]. She denies alcohol, tobacco, and drug use
[2020-01-20] MEDS: METOPROLOL TARTRATE 50 MG TAB PO ×2 (09:19→21:10)
[2020-01-20] MEDS: busPIRone HCL 5 MG TABLET 15 MG PO ×2 (09:19→21:09)
[2020-01-20] MEDS: ALPRAZolam (*CRX) 0.25 MG TABLET PO (09:19)
[2020-01-20] MEDS: PANTOPRAZOLE 40 MG TABLET PO ×2 (09:19→21:10)
[2020-01-20] MEDS: rOPINIRole HCL 1 MG TABLET 5 MG PO ×3 (09:19→18:37)
[2020-01-20] MEDS: FUROSEMIDE INJ 40 MG/4 ML VIAL 20 MG IV PUSH (09:20)
[2020-01-20] MEDS: CARBIDOPA/LEVODOPA 10/100 MG TABLET 1 TABLET PO (09:20)
[2020-01-20] MEDS: ATORVASTATIN 10 MG TABLET PO (09:20)
[2020-01-20] MEDS: CITALOPRAM HYDROBROMIDE 20 MG TABLET 40 MG PO (09:20)
[2020-01-20] MEDS: ENTACAPONE 200 MG TABLET PO ×4 (09:20→21:09)
--- NOTE | 2020-01-20 17:24 | PM.IMPN ---
Progress Note: A&P Assessment and Plan (1) Aortic stenosis due to bicuspid aortic valve: Code(s): Q23.0 - Congenital stenosis of aortic valve; Q23.1 - Congenital insufficiency of aortic valve Status: Acute Assessment and Plan: suspect the valve has precipitated the angina like symptoms and heart failure. On beta-oneida and ejection fraction prior was normal. Will continue to dichrissie matthewsly and she will follow-up with definitive treatment of her aortic valve after discharge. has scheduled appointment with surgeon 01/22 coronary arteries were normal at the time of catheterization (2) Acute CHF: Qualifiers: Heart failure type: unspecified Qualified Code(s): I50.9 - Heart failure, unspecified Code(s): I50.9 - Heart failure, unspecified Status: Acute Assessment and Plan: secondary to aortic stenosis as above. (3) Acute respiratory failure with hypoxia: Code(s): J96.01 - Acute respiratory failure with hypoxia Status: Acute Assessment and Plan: Secondary to congestive heart failure. Responding to IV Lasix which will continue, off supplemental oxygen and satting 92% on room air (4) Parkinson disease: Code(s): G20 - Parkinson's disease Status: Chronic Assessment and Plan: continue her usual medications and have seen by physical therapy. Currently lives alone and has had repeated episodes of falling (5) Essential hypertension: Code(s): I10 - Essential (primary) hypertension Status: Chronic Assessment and Plan: blood pressure well controlled continue her beta-oneida (6) DVT prophylaxis: Code(s): Z29.9 - Encounter for prophylactic measures, unspecified Status: Acute Assessment and Plan: Lovenox Subjective Date/time seen: 01/20/20 17:24 Interval history: 69-year-old female with Parkinson's and severe admitted when congestive heart failure. After Diuresis she is feeling much better. seen by cardiology today and the plan is to continue diuresis and discharge in 1-2 days to follow-up with scheduled appointment with thoracic surgeon a [facility] Exam Narrative: Exam Narrative: blood pressure is 116/64 pulse is 70 and regular saturating 92% on RA pupils equal reactive light sclera anicteric mouth normal neck supple no adenopathy thyromegaly, radiation of cardiac murmur lungs bibasilar crackles posteriorly but less than 10/25 CV systolic murmur lower left sternal border to the 2nd right intercostal space in up to the carotids abdomen is soft no masses extremities without edema distal pulses are 2+ neuro alert, no focal neurological deficits, flat affect and bradykinesia but no tremor integument various scattered bruising but no skin tears or other lesions or rashes psych affect appropriate Objective Data Vital Signs Vital Signs: Vital Signs - 24 hr 01/19/20 18:00 01/19/20 20:00 01/19/20 21:15 Temperature 36.6 C Pulse Rate 79 72 72 Respiratory Rate 20 Blood Pressure 99/46 L Pulse Oximetry 91 01/19/20 22:00 01/19/20 23:50 01/20/20 00:00 Temperature 36.2 C L Pulse Rate 72 80 74 Respiratory Rate 20 20 Blood Pressure 121/61 Pulse Oximetry 91 97 01/20/20 02:00 01/20/20 03:40 01/20/20 04:00 Temperature 36.4 C L Pulse Rate 74 76 75 Respiratory Rate 20 24 H Blood Pressure 123/62 Pulse Oximetry 97 93 01/20/20 06:00 01/20/20 08:00 01/20/20 09:19 Temperature 36.2 C L Pulse Rate 76 69 76 Respiratory Rate 18 Blood Pressure 116/64 Pulse Oximetry 92 01/20/20 10:00 01/20/20 12:00 01/20/20 14:00 Temperature Pulse Rate 73 69 74 Respiratory Rate Blood Pressure Pulse Oximetry 01/20/20 16:00 Temperature Pulse Rate 69 Respiratory Rate Blood Pressure Pulse Oximetry Intake/Output Intake/Output: Intake & Output 01/17/20 01/18/20 01/19/20 01/20/20 23:59 23:59 23:59 23:59 Intake Total
[2020-01-20] MEDS: POTASSIUM CHLORIDE 20 MEQ TABLET PO (18:38)
[2020-01-20] MEDS: ENOXAPARIN 40 MG/0.4 ML SYRINGE SUB-Q (21:10)
[2020-01-21] VITALS (7 sets, daily range): BP systolic 101–145; BP diastolic 54–97; PULSE 60–84; RESP 18; TEMP 36.1–37.1; O2SAT 91–95
[2020-01-21 05:44] LABS: Anion Gap 4 mmol/L (8-16); Blood Urea Nitrogen 18 mg/dL (7-17); Calcium 9.1 mg/dL (8.4-10.2); Carbon Dioxide 30 mmol/L (22-30); Chloride 102 mmol/L (98-107); Estimated CRCL calculation 56 ml/min; Estimated Glomerular Filt Rate > 60; Glucose 103 mg/dL (65-105); Potassium 4.2 mmol/L (3.4-5.0); Sodium 136 mmol/L (137-145)
[2020-01-21] MEDS: CARBIDOPA/LEVODOPA 25/100 MG CR TABLET 2 TABLET PO ×2 (06:55→11:30)
[2020-01-21] MEDS: CITALOPRAM HYDROBROMIDE 20 MG TABLET 40 MG PO (08:34)
[2020-01-21] MEDS: PANTOPRAZOLE 40 MG TABLET PO (08:35)
[2020-01-21] MEDS: ENTACAPONE 200 MG TABLET PO (08:35)
[2020-01-21] MEDS: rOPINIRole HCL 1 MG TABLET 5 MG PO (08:35)
[2020-01-21] MEDS: ATORVASTATIN 10 MG TABLET PO (08:36)
[2020-01-21] MEDS: busPIRone HCL 5 MG TABLET 15 MG PO (08:36)
[2020-01-21] MEDS: METOPROLOL TARTRATE 50 MG TAB PO (08:36)
[2020-01-21] MEDS: CARBIDOPA/LEVODOPA 10/100 MG TABLET 1 TABLET PO (08:41)
--- NOTE | 2020-01-21 08:42 | PM.PNCARD ---
Progress Note: A&P Assessment and Plan (1) Acute CHF: Qualifiers: Heart failure type: unspecified Qualified Code(s): I50.9 - Heart failure, unspecified Code(s): I50.9 - Heart failure, unspecified Status: Acute Assessment and Plan: She has new onset CHF likely due to her underlying severe/critical . Better compensated Switch Lasix to PO. Would discharge on 20 mg po daily She is naive to Lasix and will need to avoid overdiuresis as she is preload dependent with severe Continue home dose of Metoprolol. Avoid vasodilators (2) Critical aortic valve stenosis: Code(s): I35.0 - Nonrheumatic aortic (valve) stenosis Status: Acute Assessment and Plan: She is scheduled to see CT surgery this coming . Now with new onset CHF will need arrangement sooner for surgical AVR (or TAVR if surgical risk felt to be high). She was already seen by interventional cardiology but TAVR was felt to be less than ideal given bicuspid valve. (3) Parkinson disease: Code(s): G20 - Parkinson's disease Status: Chronic Subjective Date/time seen: 01/21/20 08:42 No overnight events. She feels good and has been weaned off oxygen via nasal cannula Denies chest pain or dyspnea. Review of Systems Review of Systems: All systems reviewed & are unremarkable except as noted in HPI and below Constitutional: Constitutional: Denies fatigue and Denies headache(s) Eyes: Eyes: Denies blurry vision ENT: Reports Normal hearing present and Denies headache(s) Cardiovascular: Cardiovascular: Denies chest pain, Denies diaphoresis, Denies pedal edema, Denies leg edema, Denies lightheadedness, Denies palpitations and Denies dyspnea Respiratory: Respiratory: Denies cough and Denies dyspnea Gastrointestinal: Gastrointestinal: Denies abdominal pain Musculoskeletal: Musculoskeletal: Denies back pain Neurologic: Reports Normal hearing present and Denies headache(s) Psychiatric: Psychiatric: Denies anxiety Endocrine: Endocrine: Denies fatigue and Denies palpitations Exam Const: General: no acute distress Eyes: Sclera: sclerae normal Neck: Neck: no JVD Carotids: no bruits Resp: Effort & Inspection: normal respiratory effort Auscultation: crackles Cardio: Rate: regular rate and not tachycardic Rhythm: regular rhythm Heart sounds: no gallops, Murmur heart sound present and no rubs Other: Loud systolic murmur noted. Normal S1. S2 not head Skin: General skin exam: normal color Neuro: Cranial nerves: Yes Normal hearing present Speech: normal speech Extrem: General: normal to inspection and no edema Psych: Affect: normal affect Objective Data Vital Signs Vital Signs: Vital Signs - 24 hr 01/20/20 09:19 01/20/20 10:00 01/20/20 12:00 Temperature Pulse Rate 76 73 69 Respiratory Rate Blood Pressure Pulse Oximetry 01/20/20 14:00 01/20/20 16:00 01/20/20 18:00 Temperature 35.9 C L Pulse Rate 74 68 75 Respiratory Rate 16 Blood Pressure 118/71 Pulse Oximetry 97 01/20/20 20:00 01/20/20 21:10 01/20/20 22:00 Temperature 36.1 C L Pulse Rate 69 71 68 Respiratory Rate 18 Blood Pressure 82/46 L Pulse Oximetry 99 01/21/20 00:00 01/21/20 02:00 01/21/20 04:00 Temperature 36.5 C 36.1 C L Pulse Rate 68 66 60 Respiratory Rate 18 18 Blood Pressure 101/54 L 116/97 H Pulse Oximetry 91 93 01/21/20 06:00 01/21/20 08:36 Temperature Pulse Rate 65 73 Respiratory Rate Blood Pressure Pulse Oximetry Intake/Output Intake/Output: Intake & Output 01/18/20 01/19/20 01/20/20 01/21/20 23:59 23:59 23:59 23:59 Intake Total 490 1200 Output Total 1875 2100 1200 Balance -7965 -900 -1200 Meds/Results Medications: Active Medications Generic Name Dose Route Start Last Admin Trade Name Freq PRN Reason Stop Dose Admin Alprazolam 0.25 mg 01/20/20 19:41 Alprazolam (*Crx) 0.25 Mg Tablet PO 01/25/20 19:41 TID
--- NOTE | 2020-01-21 08:57 | PCPTNOTE ---
Attempted therapy session, Pt eating breakfast requested therapy to come back. Will attempt again.
--- NOTE | 2020-01-21 10:39 | PM.DS ---
DS: Admitting Diagnosis Admitting Diagnosis Admitting Diagnosis: Chest Pain/Acute CHF DS: Discharge Diagnosis Discharge Diagnosis (1) Aortic stenosis due to bicuspid aortic valve: Code(s): Q23.0 - Congenital stenosis of aortic valve; Q23.1 - Congenital insufficiency of aortic valve Status: Acute Assessment and Plan: 69yo female with severe aortic stenosis and Parkinson's disease awoke from sleep early on the morning of 01/19/20 with left-sided CP, SOB and nausea. EMS found patient in the 60s and with oxygen by the time she arrived here she was above 90 but quickly dipped to 85% on room air. She was given NTG in the field. CXR showing probable mild to moderate pulmonary edema. She is placed on 2L O2 and given IV Lasix here. Her catheterization in August 2019 revealed normal coronary arteries but valve area was only 0.6 centimeter squared with a gradient of 77 mm. She was admitted for treatment and evaluation of her diastolic congestive heart failure. Suspect the valve has precipitated the angina like symptoms and heart failure. She was continued on diuretics with good response. She was seen by cardiology here. She has a scheduled appointment with cardiothoracic surgeon 01/22 (2) Acute CHF: Qualifiers: Heart failure type: unspecified Qualified Code(s): I50.9 - Heart failure, unspecified Code(s): I50.9 - Heart failure, unspecified Status: Acute Assessment and Plan: As above. Echo in August 2019 showing EF 60-65% and grade I diastolic dysfunction. Treated with diuretics with symptomatic improvement and negative fluid balance. [place] secondary to the severe aortic stenosis as detailed above. (3) Acute respiratory failure with hypoxia: Code(s): J96.01 - Acute respiratory failure with hypoxia Status: Acute Assessment and Plan: Secondary to congestive heart failure. Patient responded to IV Lasix. Able to be weaned to room air without difficulty. (4) Parkinson disease: Code(s): G20 - Parkinson's disease Status: Chronic Assessment and Plan: Stable. Up walking in the room without assistance. We continued her usual medications. She was seen by physical therapy. Currently lives alone. She states that she sometimes has weakness that requires her to lower herself to the floor. She actually denies to me that she falls. (5) Essential hypertension: Code(s): I10 - Essential (primary) hypertension Status: Chronic Assessment and Plan: Blood pressure monitored closely and remained well controlled. We continued her beta-oneida DS: Summary Hospital Course Reason for hospitalization: 69yo female with PD and severe here for CHF. Please see H&P for details. Hospital Course: As above Status at Discharge Cognitive/behavioral status at discharge: STABLE FOR DISCHARGE Functional status at discharge: uses cane/walker Time Spent with Patient Time attestation: Total time spent providing and/or coordinating discharge services: 34 minutes Time spent: Greater than 30 minutes Specific discharge activities: Hosp course and follow up plan discussed with sister per patient's request Exam Narrative: Exam Narrative: No CP. SOB better. Feels ready for discharge. She will see if she can have family stay with her. AF 98.7 145/75 73 18 95% ra Gen - NARD sitting up in chair Chest - minor bibasilar inspiratory crackles o/w clear. nml RR CV - RRR S1/S2 with 3/6 systolic murmur RUSB; Tele showing no significant dysrhythmias Abd - soft NT/ND, +BS Ext - trace edema Psych - pleasant and cooperative Skin - warm and dry DS: Data Data Completed and Pending Labs on day of discharge: Labs from last 24 hours 01/21/20 05:09 Sodium 136 L Potassium 4.2 Chloride 102 Carbon Dioxide 30 Anion Gap 4 L BUN 18 H Creatinine 0.90 Estim Creat Clear Calc 56 Estimated GFR > 60 Glucose 103 Calcium 9.1
== END 2020-01-21 13:22 | disposition home or self-care (01) ==
LOC: ANHED 10:11 → ANHIMU 10:31
PROVIDERS: Emergency Medicine; Admitting Provider Internal Medicine; Emergency Provider Emergency Medicine; PCP Specialist; Visit Provider Internal Medicine
DX: Q23.1 Congenital insufficiency of aortic valve (principal); I11.0 Hypertensive heart disease with heart failure; I50.31 Acute diastolic (congestive) heart failure; J96.01 Acute respiratory failure with hypoxia; G20 Parkinson's disease; G25.81 Restless legs syndrome; F41.9 Anxiety disorder, unspecified; M81.0 Age-related osteoporosis without current pathological fracture; Z98.1 Arthrodesis status; Z79.899 Other long term (current) drug therapy
CPT/HCPCS: 36415; 71045; 80048; 80076; 81001; 83690; 83880; 84484; 84702; 85025; 85610; 85730; 87086; 87088; 93005; 96372; 96374; 96376; 97161; 97165; 99285; A9270; G0378; J1650; J1940

== ENCOUNTER 2020-01-29 11:47 | Emergency (ER) | payer MEDICARE, SELFPAY ==
--- NOTE | ~2020-01-29 | XR_ITS ---
EXAMINATION: XR wrist RT min 3V EXAM DATE: 01/29/2020 12:29 INDICATION: pain post fall . Injury. Initial encounter. TECHNIQUE: Frontal, oblique, lateral projections of the right wrist. There is no prior study for co mparison. FINDINGS: Acute closed posttraumatic comminuted fracture of the right radial distal metaphysis exten ding into the radiocarpal joint and distal radial ulnar joint. Mild distraction of several main fract ure fragments, and both the dorsal and volar direction. Alignment is anatomic. Acute closed posttraumatic ulnar styloid base avulsion fracture with about 5 mm of displacement. Probable acute closed posttraumatic right scaphoid waist fracture. Overlying soft tissue swelling. IMPRESSION: 1. Comminuted right radial distal metaphyseal intra-articular fracture. 2. Ulnar styloid base avulsion. 3. Probable scaphoid waist fracture. Reviewed, dictated and finalized at location B. R CASE DETECTIVE
--- NOTE | ~2020-01-29 | CT_ITS ---
EXAMINATION: CT brain wo con, CT cervical spine wo con EXAM DATE: 01/29/2020 12:33 INDICATION: Fall, head injury. TECHNIQUE: Spiral CT of the head was performed without contrast. Axial, coronal and sagittal images were reviewed. Spiral CT of the cervical spine was performed without contrast. Axial images were rev iewed. Coronal and sagittal reformatted images were also reviewed. The dose-length product (DLP) fo r this examination was 1210.67 (accession [id number]), 514.69 (accession [id number]) mGy-cm. The exposure was tailored according to patient size, and iterative reconstruction (ASIR) was used as additional dose reduction technique. Comparison is made to prior examination from 09/05/2019. FINDINGS: HEAD CT: Study is limited due to patient motion. There is no acute intraparenchymal hemorrhage. No evidence of intraparenchymal brain mass lesion. No evidence of acute infarction. There is mild periv entricular and subcortical hypodensity, nonspecific but probably related to small vessel ischemic dis ease. There is mild prominence of the sulci and ventricles related to cerebral atrophy. There is intracranial carotid arteriosclerosis. There is no mass effect or midline shift. There is no obstru ctive hydrocephalus suspected. There are no extra-axial collections. There are no acute calvarial f ractures. Patient has had bilateral ocular lens surgery. Soft tissue is unremarkable. The visualiz ed sinuses and mastoid air cells are well aerated. CERVICAL CT: Instrument Lens Generator image demonstrates abnormal right humeral head, old fracture. There is mild cervic al levocurvature. There is no evidence of acute cervical fracture. The odontoid process is intact. Pre-dens space is normal. Prevertebral soft tissue is normal. There are no soft tissue abnormalitie s identified. There is no disc space widening or traumatic vertebral body subluxation suspected. Mo derate to severe lower cervical disc disease. Overall moderate cervical arthropathy. A detailed leve l by level evaluation of spondylosis can be added as addendum if requested. There is upper lobe mosai c attenuation without confluent consolidation. IMPRESSION: 1. Some limitations due to motion. No acute intracranial findings suspected. 2. Cervical spondylosis without fracture. 3. Upper lobe mosaic attenuation, could be air trapping or mild pulmonary edema. Reviewed, dictated and finalized at location B. TARY PILOT IMPRESSION: 1. Some limitations due to motion. No acute intracranial findings suspected. 2. Cervical spondylosis without fracture. 3. Upper lobe mosaic attenuation, could be air trapping or mild pulmonary moraima a.
[2020-01-29 11:50] VITALS: BP 110/74; PULSE 87; RESP 18; TEMP 36.8; O2SAT 97
--- NOTE | 2020-01-29 12:46 | ED.FALL ---
HPI - Fall General Chief Complaint: Fall Stated Complaint: FALL Source: patient Mode of arrival: EMS Limitations: no limitations History of Present Illness HPI Narrative: Patient presents via EMS with complaints of right wrist pain and hematoma to the posterior aspect of her head that she received after falling while trying to ambulate. Patient states that she has Parkinson's and normally uses a wheelchair or walker to ambulate but she was try to do so without either assistive device. Patient states that she hit her head on the floor, denies loss of consciousness, changes in vision or hearing, nausea, vomiting, neck pain. Patient denies any discomfort to her back chest abdomen or lower extremities. Patient states that she is currently being managed by her primary care for recurrent UTIs the result in negative culture. She declines needing to have this evaluated on today. Patient denies any fevers, chills,, increased weakness or lethargy. Related Data Home Medications Medication Instructions Recorded Confirmed buspirone 15 mg tablet 15 mg PO BID tablet 03/13/19 01/19/20 carbidopa ER 50 mg-levodopa 200 mg See Rx Instructions .ROUTE .COMPLEX 03/13/19 01/19/20 tablet,extended release citalopram 20 mg tablet 40 mg PO DAILY tablet 03/13/19 01/19/20 entacapone 200 mg tablet 200 mg PO QID tablet 03/13/19 01/19/20 metoprolol tartrate 50 mg tablet 50 mg PO BID tablet 03/13/19 01/19/20 ropinirole 5 mg tablet 5 mg PO TID tablet 03/13/19 01/19/20 omeprazole 40 mg PO DAILY 09/05/19 01/19/20 atorvastatin 10 mg PO DAILY 01/19/20 01/19/20 carbidopa-levodopa 1 tablet PO DAILY 01/19/20 01/19/20 Allergies Allergy/AdvReac Type Severity Reaction Status Date / Time No Known Allergies Allergy Verified 01/19/20 07:14 Review of Systems Review of Systems: Narrative: CONSTITUTIONAL: Denies fever, chills, or sweats. EYES: Denies visual changes, redness, or discharge. ENT: Denies rhinorrhea, congestion, sore throat, or otalgia. CARDIOVASCULAR: Denies chest pain, palpitations, or edema. RESPIRATORY: Denies cough or dyspnea. GASTROINTESTINAL: Denies abdominal pain, nausea, vomiting, or diarrhea. GENITOURINARY: Denies dysuria or hematuria. SKIN: Reports hematoma denies rash or itching. MUSCULOSKELETAL: Reports right wrist pain denies back pain NEUROLOGIC: Denies headache, numbness, dizziness, or weakness. PSYCHIATRIC: Denies anxiety or depression. [facility] Past Medical History Medical History (Updated 01/29/20 @ 13:40 by Beau Kim PA-C) Anxiety Aortic stenosis due to bicuspid aortic valve Essential hypertension Lumbar burst fracture (~2017) Status post lumbar fusion at L1-L2. Osteoporosis Parkinson disease Restless leg syndrome Right humeral fracture (~12/2018) Treated nonsurgically and followed by Dr. Lagos. Imaging 06/04/2019 showed reasonable alignment with abundant maturing bone at fracture site. Surgical History Surgical History History of cataract extraction History of foot surgery Right plantar fasciitis release. History of lumbar fusion (~02/2018) L1-L2. Family History Family History (Updated 01/19/20 @ 13:04 by Rudi Pabon MD) Mother , at age 76 Pulmonary fibrosis Father , diet age 87 Alzheimer's dementia Social History Social History Social History: The patient lives in an apartment alone in [place], [place]. She denies alcohol, tobacco, and drug use. She has 1 daughter, Nina Singletary, who is her healthcare power of state attorney. The patient wishes to be a full code. Ambulates with a walker. The patient is disabled. 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 She is a former smoker. Smoking status: Never smoker Tobacco type: cigarettes Alcohol intake: former Substance use: never Substance use type: does not use Gender identity (if ve
--- NOTE | 2020-01-29 15:00 | PC.NURSE ---
spoke with daughter and she will picker pt. daughter informed that provider states that pt's pcp is managing uti
[2020-01-29 16:09] VITALS: BP 115/99; PULSE 95; RESP 18; O2SAT 98
== END 2020-01-29 16:11 | disposition home or self-care (01) ==
PROVIDERS: Emergency Provider Emergency Medicine; PCP Specialist
DX: S52.571A Other intraarticular fracture of lower end of right radius, initial encounter for closed fracture (principal); S52.611A Displaced fracture of right ulna styloid process, initial encounter for closed fracture; G20 Parkinson's disease; F41.9 Anxiety disorder, unspecified; I10 Essential (primary) hypertension; M81.0 Age-related osteoporosis without current pathological fracture; G25.81 Restless legs syndrome; Z98.49 Cataract extraction status, unspecified eye; Z98.1 Arthrodesis status; I35.0 Nonrheumatic aortic (valve) stenosis; Z87.891 Personal history of nicotine dependence; W18.39XA Other fall on same level, initial encounter
CPT/HCPCS: 29125; 70450; 72125; 73110; 99284

== ENCOUNTER 2020-02-27 13:43 | Observation (INO) | payer MEDICARE, SELFPAY ==
[2020-02-27] VITALS (9 sets, daily range): BP systolic 109–126; BP diastolic 44–80; PULSE 97–113; RESP 14–22; TEMP 36.8–37.6; O2SAT 96–98; BMI 35.9
--- NOTE | ~2020-02-27 | CT_ITS ---
EXAMINATION: CTA chest PE protocol DATE: 02/27/2020 15:50 INDICATION: Chest pain. Elevated d-dimer. TECHNIQUE: Computed tomography (CT) pulmonary angiogram of the chest was performed with 100 mL Omnipa que-350 intravenous contrast. Additional 3D reconstructions utilizing coronal maximum intensity proje ction (MIP) were performed. The dose-length product was 647.86 mGy-cm. COMPARISON: None FINDINGS: Excellent contrast opacification of the pulmonary arteries. There is mild to moderate streak artifact from dense contrast in the superior vena cava and right atrium which is most prominent in the vessel s in the right suprahilar region. Moderate respiratory motion artifact at the lung bases which decrea ses sensitivity in some of the smaller subsegmental basilar pulmonary arteries. No pulmonary embolism . Linear discoid atelectasis in the lingula. No pneumonia, pulmonary edema, pleural effusion or pneum othorax. Calcified nodules in the left lower lobe along with calcified left hilar and mediastinal lym ph nodes consistent with old granulomatous disease. Heart size is normal. Aortic valve and mitral catalina ular calcification. No pericardial effusion. Thoracic aorta is normal in caliber with no dissection. Enlargement of the central pulmonary arteries consistent with pulmonary arterial hypertension. Old he aled proximal right humeral fracture deformity. IMPRESSION: 1. Lingular atelectasis. No pulmonary embolism or other acute cardiopulmonary disease. 2. Dense aortic valve calcification. 3. Enlargement of the central pulmonary arteries consistent with pulmonary arterial hypertension. Reviewed, dictated and finalized at location A. YTIC PROGRAMMER IMPRESSION: 1. Lingular atelectasis. No pulmonary embolism or other acute cardiopulmonary d isease. 2. Dense aortic valve calcification. 3. Enlargement of the central pulmonary arteries consistent with pulmonary perry rial hypertension.
--- NOTE | ~2020-02-27 | US_ITS ---
EXAMINATION: US right upper quadrant DATE: 02/28/2020 08:52 INDICATION: Right upper quadrant abdominal pain. TECHNIQUE: Multiple grayscale and Doppler ultrasound images of the abdomen were obtained. COMPARISON: Chest CT 02/27/2020 FINDINGS: The pancreas is obscured by bowel gas. The liver is normal without focal lesion. There is n ormal flow in main portal vein. The gallbladder is normal in size. No gallstones or gallbladder wall thickening. There was no sonographic Mcintyre sign. The common duct is normal and measures 4 mm. IMPRESSION: 1. Normal right upper quadrant ultrasound. Reviewed, dictated and finalized at location A. HER PLANT OPERATOR
--- NOTE | 2020-02-27 13:49 | ECG_ITS ---
Measurements Intervals [place] Rate: 113 P: 35 TN: 140 QRS: -18 QRSD: 82 T: 51 QT: 327 QTc: 450 Interpretive Statements SINUS TACHYCARDIA LEFT VENTRICULAR HYPERTROPHY AND ST-T CHANGE DELAYED PRECORDIAL R/S TRANSITION BORDERLINE T WAVE ABNORMALITY- INFERIOR LEADS BASELINE ARTIFACT- V2, V4-V5 ABNORMAL ECG Electronically Signed On 02-27-2020 13:51:53 HOME RESTORATION SERVICE SUPERVISOR by Hakan Alcaraz D.O.
--- NOTE | 2020-02-27 14:01 | ED.CHESTPAIN ---
HPI - Chest Pain General Chief Complaint: Chest Pain Stated Complaint: CP Time Seen by Provider: 02/27/20 13:45 Source: patient Mode of arrival: ambulatory Limitations: no limitations History of Present Illness HPI narrative: Patient is a 16-year-old female complaining of chest pain, midsternal, pressure, 6 out of 10, nonradiating started yesterday. Patient denies any shortness of breath but states that she is short of breath only when she lays down. Patient denies any nausea, diaphoresis, fever or chills. Related Data Home Medications Medication Instructions Recorded Confirmed buspirone 15 mg tablet 15 mg PO BID tablet 03/13/19 02/11/20 carbidopa ER 50 mg-levodopa 200 mg See Rx Instructions .ROUTE .COMPLEX 03/13/19 02/11/20 tablet,extended release entacapone 200 mg tablet 200 mg PO QID tablet 03/13/19 02/11/20 ropinirole 5 mg tablet 5 mg PO TID tablet 03/13/19 02/11/20 omeprazole 40 mg PO DAILY 09/05/19 02/11/20 atorvastatin 10 mg PO DAILY 01/19/20 02/11/20 carbidopa-levodopa 1 tablet PO DAILY 01/19/20 02/11/20 citalopram 20 mg tablet 20 mg PO DAILY tablet 02/04/20 02/11/20 metoprolol tartrate 50 mg tablet 25 mg PO BID tablet 02/04/20 02/11/20 Allergies Allergy/AdvReac Type Severity Reaction Status Date / Time No Known Allergies Allergy Verified 01/19/20 07:14 Review of Systems Review of Systems: All systems reviewed & are unremarkable except as noted in HPI and below Constitutional: Constitutional: Denies body ache(s), Denies chills, Denies excessive sweating, Denies fatigue, Denies fever(s), Denies headache(s), Denies lethargy, Denies malaise, Denies weakness and Denies weight loss Eyes: Eyes: Denies blurry vision, Denies change in vision and Denies loss of vision ENT: Denies dizziness, Denies ear discharge, Denies headache(s), Denies lip swelling, Denies epistaxis, Denies nasal congestion, Denies neck pain, Denies throat swelling and Denies tongue swelling Cardiovascular: Cardiovascular: Denies chest pain with activity, Denies diaphoresis, Denies rapid heart rate, Denies edema, Denies irregular heart rhythm, Denies lightheadedness, Denies palpitations, Denies dyspnea and Denies dyspnea on exertion Respiratory: Respiratory: Denies chest congestion, Denies cough, Denies hemoptysis, Denies dyspnea and Denies dyspnea on exertion Gastrointestinal: Gastrointestinal: Denies abdominal pain, Denies melena, Denies hematochezia, Denies diarrhea, Denies nausea, Denies vomiting and Denies hematemesis Musculoskeletal: Musculoskeletal: Denies abnormal gait, Denies deformity, Denies joint swelling, Denies limited range of motion, Denies neck pain and Denies numbness Neurologic: Denies Abnormal speech present, Denies abnormal gait, Denies confusion, Denies dizziness, Denies headache(s), Denies focal weakness, Denies loss of vision, Denies numbness, Denies Other visual disturbances, Denies Sensory deficit (Neuro) and Denies weakness Psychiatric: Psychiatric: Denies confusion, Denies depression, Denies auditory hallucinations, Denies homicidal ideation and Denies suicidal ideation Endocrine: Endocrine: Denies cold intolerance, Denies excessive sweating, Denies fatigue, Denies heat intolerance and Denies palpitations Hematologic/Lymphatic: Hematologic/Lymphatic: Denies easy bleeding and Denies easy bruising Allergic/Immunologic: Allergic/Immunologic: Denies lip swelling, Denies throat swelling and Denies tongue swelling PMFSH Past Medical History Medical History Anxiety Aortic stenosis due to bicuspid aortic valve Essential hypertension Fracture of right distal radius Treated nonsurgically with cast January 2020 Lumbar burst fracture (~2017) Status post lumbar fusion at L1-L2. Osteoporosis Parkinson disease Restless leg syndrome Right humeral fracture (~12/2018) Treated nonsurgically and followed by Dr. Lagos. Imaging 06/04/2019 showed reasonable alignment with abundant
[2020-02-27 14:16] LABS: Basophils Absolute Auto 0.1 K/mm3 (0.0-0.1); Basophils Percent Auto 0.5 % (0.2-1.2); Eosinophils Absolute Auto 0.2 K/mm3 (0-0.3); Eosinophils Percent Auto 1.8 % (0-4.4); Hematocrit 39.9 % (37.0-47.0); Hemoglobin 12.8 g/dL (12.0-15.0); Immature Granulocyte Absolute 0.05 K/mm3 (0.00-0.031); Immature Granulocyte Percent A 0.5 % (0-0.5); Lymphocytes Absolute Auto 1.35 K/mm3 (0.9-3.2); Lymphocytes Percent Auto 13.5 % (18.3-44.2); Mean Corpuscular HGB Conc 32.1 g/dl (32-36); Mean Corpuscular Hemoglobin 28.1 pg (26-34); Mean Corpuscular Volume 87.5 fl (80-100); Mean Platelet Volume 9.2 fl (7.4-10.4); Monocytes Absolute Auto 0.9 K/mm3 (0.1-0.6); Monocytes Percent Auto 8.8 % (2.6-8.5); Neutrophils Absolute Auto 7.5 K/mm3 (1.3-6.7); Neutrophils Percent Auto 74.9 % (45.5-73.1); Platelet Count Result 387 k/mm3 (150-375); Red Blood Count 4.56 M/mm3 (4.2-5.4); Red Cell Distribution Width 12.6 % (11.5-14.5)
[2020-02-27 14:26] LABS: Anion Gap 6 mmol/L (8-16); Blood Urea Nitrogen 19 mg/dL (7-17); Calcium 9.7 mg/dL (8.4-10.2); Carbon Dioxide 29 mmol/L (22-30); Chloride 102 mmol/L (98-107); Estimated CRCL calculation 51 ml/min; Estimated Glomerular Filt Rate > 60; Glucose 109 mg/dL (65-105); Potassium 3.9 mmol/L (3.4-5.0); Sodium 137 mmol/L (137-145)
[2020-02-27 14:28] LABS: INR 0.9; Partial Thromboplastin Time 26.9 SECONDS (22.3-36.8); Prothrombin Time 13.1 Seconds (11.1-14.7)
[2020-02-27 14:31] LABS: D Dimer 1.56 ug/mL (<0.48)
[2020-02-27 14:38] LABS: NT Pro B Type Natriuretic Pept 1580 PG/ML (5-100); Troponin I < 0.012 ng/mL (0.000-0.034)
[2020-02-27 17:14] LABS: Troponin I < 0.012 ng/mL (0.000-0.034)
--- NOTE | 2020-02-27 19:23 | ADMGEN ---
This patient, Nina Hudson, was admitted to [facility] at 1900. Patient/family oriented to hospital policies and general routines including ID bracelet, bed and alarms, visiting hours, pain management, procedures, bathroom and other care routines, personal items, smoking policy, room service/diet, and visiting hours. Information on how to activate the Rapid Response Team has been discussed. Patient/Family are encouraged to report perceived risks to care and to ask questions if they do not understand what they are told or what they should do.
--- NOTE | 2020-02-27 19:59 | PC.NURSE ---
Patient's daughter, Nina Singletary, contacted via phone for patient's current medication list. Per pt. her daughter, Nina, administers her medications. Medication list verified with patient's daughter.
[2020-02-27 20:16] LABS: Troponin I < 0.012 ng/mL (0.000-0.034)
--- NOTE | 2020-02-27 21:21 | PM.IMHP ---
H&P: HPI History of Present Illness Date/Time: 02/27/20 21:21 Chief complaint: chest pain Narrative: Nina Hudson is a 69 year old female who has a history of aortic stenosis due to bicuspid artery valve. The patient states that in approximately 1 week she is supposed to go to [facility] for valve replacement. The patient has a history of Parkinson's. She does not have increased shortness of breath or edema to her lower extremities. She has not gained any weight. She states as a matter fact she is losing weight. The patient came in complaining of chest pain that was midsternal pressure was 6/10 was nonradiating and started yesterday. Patient stated that she did have some shortness of breath when she laid flat but none with exertion. No fever chills. Patient stated she has been taking her medication as prescribed. The patient had been admitted here January 19, 2020 where she had some left-sided chest pain shortness of breath and nausea. She was hypoxic at that time. Patient had a cardiac catheterization August of 2019 would which revealed normal coronary arteries but valve area was only 0.6 centimeter squared with a graduate of 77 mm. The patient was admitted and evaluated for diastolic congestive heart failure and suspected that the valve has precipitated the angina like symptoms in the heart failure. Patient was given diuretics back in December and was scheduled to see her cardiothoracic surgeon. As previously mentioned the patient is scheduled to have a valve replacement within the next week or so. The patient stated the chest pain is pretty much relieve now and now she is complaining of right breast pain that feels better when there is pressure applied. It is nonradiating. The patient does have a cast to her right forearm which she states is very heavy to carry around. She has difficulty ambulating at times and walks with a walker due to her Parkinson's disease. Troponins x3 were found to be negative. As singular atelectasis no pulmonary embolism or other acute cardiopulmonary disease. Dense aortic valve calcification. Enlargement of the central pulmonary arteries consistent with pulmonary artery hypertension. Cardiology has been consulted. Patient only has some mild discomfort to the right side of her chest now. Patient does have trace edema to her lower extremities now. Patient's EKG was read as sinus tachy cardia. Left ventricular hypertrophy and ST T-wave changes. The patient was admitted into observation status on the date of service of 02/27/2020 Review of Systems Review of Systems: All systems reviewed & are unremarkable except as noted in HPI and below Constitutional: Constitutional: Reports as per HPI and Reports no additional constitutional complaints Eyes: Eyes: Reports as per HPI and Reports no additional eye complaints ENT: Reports system reviewed and no additional complaints, except as documented and Reports Normal hearing present Cardiovascular: Cardiovascular: Reports no additional cardiovascular complaints Respiratory: Respiratory: Reports no additional respiratory complaints and Reports no additional respiratory complaints Gastrointestinal: Gastrointestinal: Reports as per HPI and Reports no additional gastrointestinal complaints Musculoskeletal: Musculoskeletal: Reports no additional musculoskeletal complaints Integumentary/Breasts: Skin/Breast: Reports system reviewed and no additional complaints, except as docu and Reports as per HPI Neurologic: Reports system reviewed and no additional complaints, except as documented, Reports as per HPI and Reports Normal hearing present Psychiatric: Psychiatric: Reports no additional psychiatric complaints and Reports as per HPI Endocrine: Endocrine: Reports no additional endocrine complaints Hematologic/Lymphatic: Hematologic/Lymphatic: Reports no additional hematologic/lymphatic complaints Allergic/Immunologic: Allergic/Immunologic: Reports no additional allergic/immun
[2020-02-27] MEDS: MENTHOL 10% / METHYL SALICYLATE 15% 57 GM TUBE 1 APPLIC TOPICAL (23:06)
[2020-02-27] MEDS: CARBIDOPA/LEVODOPA 25/100 MG CR TABLET 2 TABLET BY MOUTH (23:06)
[2020-02-27] MEDS: ALPRAZolam (*CRX) 0.25 MG TABLET PO (23:06)
[2020-02-28] VITALS (8 sets, daily range): BP systolic 101–113; BP diastolic 51–78; PULSE 80–98; RESP 14–18; TEMP 37; O2SAT 93–95
[2020-02-28 05:43] LABS: Basophils Absolute Auto 0.1 K/mm3 (0.0-0.1); Eosinophils Absolute Auto 0.3 K/mm3 (0-0.3); Eosinophils Percent Auto 4.1 % (0-4.4); Hematocrit 33.7 % (37.0-47.0); Hemoglobin 10.8 g/dL (12.0-15.0); Immature Granulocyte Absolute 0.02 K/mm3 (0.00-0.031); Immature Granulocyte Percent A 0.3 % (0-0.5); Lymphocytes Absolute Auto 1.98 K/mm3 (0.9-3.2); Lymphocytes Percent Auto 31.4 % (18.3-44.2); Mean Corpuscular Hemoglobin 27.9 pg (26-34); Mean Corpuscular Volume 87.1 fl (80-100); Mean Platelet Volume 9.3 fl (7.4-10.4); Monocytes Absolute Auto 0.8 K/mm3 (0.1-0.6); Monocytes Percent Auto 12.4 % (2.6-8.5); Neutrophils Absolute Auto 3.2 K/mm3 (1.3-6.7); Neutrophils Percent Auto 50.8 % (45.5-73.1); Platelet Count Result 344 k/mm3 (150-375); Red Blood Count 3.87 M/mm3 (4.2-5.4); Red Cell Distribution Width 12.6 % (11.5-14.5); White Blood Count 6.3 K/mm3 (4.5-10.0)
[2020-02-28 05:52] LABS: Albumin Level 3.6 g/dL (3.5-5.1); Alkaline Phosphatase 162 U/L (38-126); Anion Gap 5 mmol/L (8-16); Aspartate Amino Transferase 14 U/L (14-36); Bilirubin,Total 0.7 mg/dL (0.2-1.3); Blood Urea Nitrogen 14 mg/dL (7-17); Calcium 9.1 mg/dL (8.4-10.2); Carbon Dioxide 28 mmol/L (22-30); Chloride 105 mmol/L (98-107); Estimated CRCL calculation 58 ml/min; Estimated Glomerular Filt Rate > 60; Glucose 99 mg/dL (65-105); Lipase 56 U/L (23-300); Sodium 138 mmol/L (137-145)
[2020-02-28 06:25] LABS: Alanine Aminotransferase < 4 U/L (4-35)
[2020-02-28] MEDS: ENTACAPONE 200 MG TABLET PO ×3 (07:01→16:00)
[2020-02-28] MEDS: CARBIDOPA/LEVODOPA 25/100 MG CR TABLET 2 TABLET BY MOUTH ×3 (07:01→16:00)
--- NOTE | 2020-02-28 07:53 | PM.CNCAR ---
Assessment and Plan Assessment and plan (1) Chest pain at rest: Code(s): R07.9 - Chest pain, unspecified Status: Acute Assessment and Plan: Resolved Trop negative X3 and EKG unchanged from baseline Pain could possibly be due to symptomatic critical aortic stenosis. She is scheduled for surgery on 03/09/20 Avoid SL nitro or any vasodilators due to critical Continue current dose of lasix 20 mg daily. She appears well compensated from volume standpoint Abdominal US per primary team No plan for any further cardiac work up. She is stable for discharge from cardiac standpoint. Would recommend PT prior to discharge with recurrent falls (2) Critical aortic valve stenosis: Code(s): I35.0 - Nonrheumatic aortic (valve) stenosis Status: Acute Assessment and Plan: scheduled for surgery on 03/09/20 History of Present Illness History of Present Illness Consult date/time: 02/28/20 07:53 69 y/o female with h/o HTN, with known critical aortic valve stenosis diagnosed in August of this year (Max velocity 5.7 m/s and mean gradient of 77 mmHg, valve area 0.6 cm2) . At that time she underwent LHC with no significant CAD also had SHAHEED that confirmed critical stenosis and also showed the valve was bicuspid. She was schedule for surgical last month however that was cancelled due to UTI. Now she is rescheduled for Monday the Feb. She has been week and had recurrent falls and sustained wrist fracture. She presents now with chest pain. She reprots sharp pain that moves between left and right side of chest. She states the pain has resolved from the chest now and she reports pain in her right shoulder. It appears that she also had some upper right quadrant pain and now is going for abdominal ultrasound She denies chest pain. She denies syncope and contributes the recurrent falls to being weak and legs giving up Trop negative X3. NT pro BNP 1500. EKG shows sinus tachycardia with LVH/repolarization changes Reason For Visit: chest pain Review of Systems Review of Systems: All systems reviewed & are unremarkable except as noted in HPI and below Constitutional: Constitutional: Denies fatigue and Denies headache(s) Eyes: Eyes: Denies blurry vision ENT: Reports Normal hearing present and Denies headache(s) Cardiovascular: Cardiovascular: Denies chest pain, Denies diaphoresis, Denies pedal edema, Denies leg edema, Denies lightheadedness, Denies palpitations and Denies dyspnea Respiratory: Respiratory: Denies cough and Denies dyspnea Gastrointestinal: Gastrointestinal: Denies abdominal pain Musculoskeletal: Musculoskeletal: Denies back pain Neurologic: Reports Normal hearing present and Denies headache(s) Psychiatric: Psychiatric: Denies anxiety Endocrine: Endocrine: Denies fatigue and Denies palpitations PMFSH Past Medical History Medical History (Updated 02/27/20 @ 21:37 by Carmencita Villatoro NP) Anxiety Aortic stenosis due to bicuspid aortic valve Essential hypertension Fracture of right distal radius Treated nonsurgically with cast January 2020 Lumbar burst fracture (~2017) Status post lumbar fusion at L1-L2. Osteoporosis Parkinson disease Restless leg syndrome Right humeral fracture (~12/2018) Treated nonsurgically and followed by Dr. Lagos. Imaging 06/04/2019 showed reasonable alignment with abundant maturing bone at fracture site. Surgical History Surgical History (Updated 02/27/20 @ 21:38 by Carmencita Villatoro NP) H/O cardiac catheterization August of 2019 reported as clear History of cataract extraction History of foot surgery Right plantar fasciitis release. History of lumbar fusion (~02/2018) L1-L2. Family History Family History (Updated 02/27/20 @ 21:39 by Carmencita Villatoro NP) Mother , at age 76 Pulmonary fibrosis Heart valve replaced Father , diet age 87 Alzheimer's dementia Social History Social History (Updated
[2020-02-28 08:56] LABS: Free T4 Free Thyroxine Reflex 1.29 ng/dL (0.78-2.19)
[2020-02-28] MEDS: rOPINIRole HCL 1 MG TABLET 5 MG PO ×2 (09:17→14:07)
[2020-02-28] MEDS: ATORVASTATIN 10 MG TABLET PO (09:18)
[2020-02-28] MEDS: METOPROLOL TARTRATE 25 MG TABLET PO (09:18)
[2020-02-28] MEDS: PANTOPRAZOLE 40 MG TABLET PO (09:18)
[2020-02-28] MEDS: busPIRone HCL 5 MG TABLET 15 MG PO (09:18)
[2020-02-28] MEDS: CITALOPRAM HYDROBROMIDE 20 MG TABLET PO (09:18)
[2020-02-28] MEDS: CARBIDOPA/LEVODOPA 10/100 MG TABLET 1 TABLET PO (09:18)
[2020-02-28] MEDS: FUROSEMIDE 20 MG TABLET PO (09:19)
--- NOTE | 2020-02-28 09:19 | PM.DS ---
DS: Admitting Diagnosis Admitting Diagnosis Admitting Diagnosis: chest pain DS: Discharge Diagnosis Discharge Diagnosis (1) Chest pain at rest: Code(s): R07.9 - Chest pain, unspecified Status: Acute Assessment and Plan: Likely related to known . Troponins negative x 3. EKG unchanged from baseline. Cardiology consulted and appreciate input; okay for discharge from their standpoint. Patient to have planned valve replacement on 03/[address] Ellsworth at [facility], per patient. RUQ US performed due to vague right chest pain and RUQ pain yesterday; this was unremarkable and pain has resolved. CTA results show no pulmonary embolism or other acute cardiopulmonary disease, dense aortic valve calcification, and enlargement of the central pulmonary arteries consistent with pulmonary arterial hypertension. D/c home today F/u with planned surgery; instructed to call physician's office to let them know about hospital stay F/u with PCP (2) Anxiety: Code(s): F41.9 - Anxiety disorder, unspecified Status: Chronic Assessment and Plan: No acute issues Continue with home medications (3) Parkinson disease: Code(s): G20 - Parkinson's disease Status: Chronic Assessment and Plan: With frequent falls at home per daughter. Continue with home medications PT/OT eval (4) Essential hypertension: Code(s): I10 - Essential (primary) hypertension Status: Chronic Assessment and Plan: BP 100s sys this morning Continue with metoprolol (5) Aortic stenosis: Code(s): I35.0 - Nonrheumatic aortic (valve) stenosis Status: Chronic Assessment and Plan: Appt for valve replacement/surgery on 03/09 as above (6) Fracture of right distal radius: Qualifiers: Encounter type: subsequent encounter Fracture healing: with routine healing Fracture morphology: other intra-articular Fracture type: closed Qualified Code(s): S52.571D - Other intraarticular fracture of lower end of right radius, subsequent encounter for closed fracture with routine healing Code(s): S52.501A - Unspecified fracture of the lower end of right radius, initial encounter for closed fracture Status: Acute Assessment and Plan: She has a cast intact to right forearm. NVI. Continue current management F/u with Dr. Lagos (7) Frequent falls: Code(s): R29.6 - Repeated falls Status: Acute Assessment and Plan: It appears this has been ongoing per speaking with daughter (with patient's permission). Daughter concerned with physical conditioning and also noted patient stating she had buttock pain occasionally. When discussing with patient, she denies any current buttock pain but notes it from time to time, particularly with ambulation. Denies any hip/pelvis bone pain and states it is more muscular in nature; does not radiate outside of b/l buttock. She underwent PT therapy last hospital stay with rec of outpatient therapy. Will do PT/OT eval It appears pain is more muscular in nature and suspect it is from physical deconditioning likely from Parkinson's disease; as there is no hip/pelvis bone pain, I feel further imaging is not warranted at this moment. Will defer further work up to PCP. Will discuss with CC about further options F/u with PCP (8) CHF (congestive heart failure): Code(s): I50.9 - Heart failure, unspecified Status: Acute Assessment and Plan: Appears clinically compensated at the moment. Echo August 2019 showing EF 60-65% and grade I diastolic dysfunction. Continue home medications DS: Summary Hospital Course Reason for hospitalization: Chest pain, ACS r/o Hospi
[2020-02-28 10:12] LABS: Total Triiodothyronine (T3) 1.22 NG/ML (0.97-1.69)
--- NOTE | 2020-02-28 16:19 | PC.NURSE ---
1615-pt given D/C orders and instructions. Questions answered and verbalized understanding. AOx4. All instructions given to daughter over the phone as well. PIV removed intact. Taken via wheelchair to waiting vehicle. No distress noted or verbalized at time of departure.
== END 2020-02-28 16:19 | disposition home or self-care (01) ==
LOC: ANHED 16:59 → ANHCPC 17:48
PROVIDERS: Nurse Practitioner; Admitting Provider Family Medicine; Emergency Provider Emergency Medicine; Visit Provider Family Medicine
DX: R07.9 Chest pain, unspecified (principal); F41.9 Anxiety disorder, unspecified; G20 Parkinson's disease; I11.0 Hypertensive heart disease with heart failure; S52.571D Other intraarticular fracture of lower end of right radius, subsequent encounter for closed fracture with routine healing; R29.6 Repeated falls; I50.9 Heart failure, unspecified; Q23.0 Congenital stenosis of aortic valve; Q23.1 Congenital insufficiency of aortic valve; R79.1 Abnormal coagulation profile; R94.31 Abnormal electrocardiogram [ECG] [EKG]; J98.11 Atelectasis; Z79.899 Other long term (current) drug therapy; Z87.891 Personal history of nicotine dependence; Z98.1 Arthrodesis status
CPT/HCPCS: 36415; 71275; 76705; 80048; 80053; 83690; 83735; 83880; 84439; 84443; 84480; 84484; 85025; 85380; 85610; 85730; 93005; 97161; 97165; 99285; A9270; G0378; Q9967

== ENCOUNTER 2021-02-05 19:09 | Emergency (ER) | payer MEDICARE, SELFPAY ==
--- NOTE | ~2021-02-05 | XR_ITS ---
EXAMINATION: XR tibia fibula LT 2V EXAM DATE: 02/05/2021 20:07 INDICATION: Laceration From Bed At Facility, Lateral/Mid Tib/Fib. TECHNIQUE: Left tibia/fibula frontal and lateral projections obtained and reviewed. There is no prio r study for comparison. FINDINGS: Left tibial and fibular shafts unremarkable. There are no acute fractures or dislocations identified. There is no subcutaneous gas. Mid calf soft tissue laceration identified. There is edema surrounding the ankle. Lower leg scattered soft tissue dystrophic calcifications, differential diagnosis including venous insufficiency dermato myositis, CREST, lupus, trauma, chronic graft versus host disease. Lower thigh surgical clips. IMPRESSION: Soft tissue findings. Reviewed, dictated and finalized at location A. CIATE PROGRAMMER IMPRESSION: Soft tissue findings.
[2021-02-05 19:12] VITALS: BP 114/65; PULSE 111; RESP 16; TEMP 36.6; O2SAT 98
--- NOTE | 2021-02-05 19:48 | ED.GENADULT ---
HPI - General Adult General Chief complaint: Extremity Injury, Lower Stated complaint: leg avulsion wound, SBP 88 Time Seen by Provider: 02/05/21 19:47 History of Present Illness HPI narrative: Patient is a 70-year-old female with past medical history significant for DVT on Eliquis, Parkinson's, CHF who comes from the group home with complaints of a laceration to her left lower leg. Patient reports that she was being transferred from wheelchair to bed when her lateral left leg got caught on an object and she suffered a large laceration. She denies any other injuries or symptoms or concerns. Having minimal amount of pain currently. Unknown when last tetanus was. Patient is somewhat of a poor historian due to her baseline dementia. Related Data Home Medications Medication Instructions Recorded Confirmed buspirone 15 mg tablet 15 mg PO BID tablet 03/13/19 03/05/20 carbidopa ER 50 mg-levodopa 200 mg See Rx Instructions .ROUTE .COMPLEX 03/13/19 03/05/20 tablet,extended release entacapone 200 mg tablet 200 mg PO QID tablet 03/13/19 03/05/20 ropinirole 5 mg tablet 5 mg PO TID tablet 03/13/19 03/05/20 omeprazole 40 mg PO DAILY 09/05/19 03/05/20 atorvastatin 10 mg PO DAILY 01/19/20 03/05/20 carbidopa-levodopa 1 tablet PO DAILY 01/19/20 03/05/20 citalopram 20 mg tablet 20 mg PO DAILY tablet 02/04/20 03/05/20 metoprolol tartrate 50 mg tablet 25 mg PO DAILY tablet 02/04/20 03/05/20 apixaban [Eliquis] mg 02/05/21 hydrocodone-acetaminophen 02/05/21 Allergies Allergy/AdvReac Type Severity Reaction Status Date / Time No Known Allergies Allergy Verified 02/05/21 19:28 Review of Systems Constitutional: Constitutional: Reports as per HPI, Denies fever(s), Denies night sweats and Denies weakness Cardiovascular: Cardiovascular: Denies chest pain, Denies edema, Denies leg edema, Denies dyspnea and Denies orthopnea Respiratory: Respiratory: Denies cough and Denies dyspnea Gastrointestinal: Gastrointestinal: Denies abdominal pain, Denies constipation, Denies diarrhea, Denies nausea and Denies vomiting Musculoskeletal: Musculoskeletal: Denies abnormal gait, Denies back pain, Denies numbness and Denies tingling Integumentary/Breasts: Comments: See HPI Neurologic: Denies Abnormal speech present, Denies abnormal gait, Denies numbness, Denies tingling and Denies weakness Psychiatric: Psychiatric: Denies homicidal ideation and Denies suicidal ideation [facility] Past Medical History Medical History Anxiety Aortic stenosis due to bicuspid aortic valve Essential hypertension Fracture of right distal radius Treated nonsurgically with cast January 2020 Lumbar burst fracture (~2017) Status post lumbar fusion at L1-L2. Osteoporosis Parkinson disease Restless leg syndrome Right humeral fracture (~12/2018) Treated nonsurgically and followed by Dr. Lagos. Imaging 06/04/2019 showed reasonable alignment with abundant maturing bone at fracture site. Surgical History Surgical History H/O cardiac catheterization August of 2019 reported as clear History of cataract extraction History of foot surgery Right plantar fasciitis release. History of lumbar fusion (~02/2018) L1-L2. Family History Family History Mother , at age 76 Pulmonary fibrosis Heart valve replaced Father , diet age 87 Alzheimer's dementia Social History Social History Social History: The patient lived in an apartment alone in [place], [place] but is currently living with her 1 and only daughter nina. She denies alcohol, tobacco, and drug use. She has 1 daughter, Nina Singletary, who is her healthcare power of contracts attorney. The patient wishes to be a full code. Ambulates with a walker. The patient is disabled. Prior to that she used t
[2021-02-05] MEDS: ALPRAZolam (*CRX) 0.5 MG TABLET 0.25 MG PO (20:08)
[2021-02-05] MEDS: TETANUS,DIPHTHERIA,AC PERTUSSIS ADULT (0.5 ML) BOOSTRIX IM (21:23)
[2021-02-05 22:56] VITALS: BP 124/88; PULSE 97; RESP 18; O2SAT 94
[2021-02-06 01:06] VITALS: BP 130/89; PULSE 87; RESP 17; O2SAT 99
== END 2021-02-06 00:45 ==
PROVIDERS: Emergency Provider Emergency Medicine; PCP Internal Medicine
DX: S81.812A Laceration without foreign body, left lower leg, initial encounter (principal); G20 Parkinson's disease; I50.9 Heart failure, unspecified; I11.0 Hypertensive heart disease with heart failure; G25.81 Restless legs syndrome; F41.9 Anxiety disorder, unspecified; M81.0 Age-related osteoporosis without current pathological fracture; Z23 Encounter for immunization; Z79.01 Long term (current) use of anticoagulants; W23.0XXA Caught, crushed, jammed, or pinched between moving objects, initial encounter; Z86.718 Personal history of other venous thrombosis and embolism; Z87.891 Personal history of nicotine dependence
CPT/HCPCS: 12004; 73590; 90471; 90715; 99283; A9270

== ENCOUNTER 2021-03-30 08:20 | Inpatient (IN) | payer MEDICARE, SELFPAY ==
[2021-03-30] VITALS (56 sets, daily range): BP systolic 100–140; BP diastolic 57–107; PULSE 71–111; RESP 16–34; TEMP 36.1–36.4; O2SAT 93–99
--- NOTE | ~2021-03-30 | XR_ITS ---
EXAMINATION: XR chest 1V portable DATE: 04/03/2021 10:54 INDICATION: Pneumonia. Congestive heart failure. TECHNIQUE: A single frontal view of the chest was obtained. COMPARISON: Chest single view 04/01/2021 FINDINGS: There is a diffuse interstitial pattern in the lungs. There are airspace opacities in right mid and lower lung zones. A calcified left lung nodule and calcified left hilar and mediastinal lymp h nodes are consistent with old granulomatous disease. There are small pleural effusions. No pneumoth orax. Cardiomegaly is noted. There are changes of heart valve replacement. There are changes of verte broplasty at multiple levels. Retained epicardial pacer wires are noted. There is an old healed fract ure of proximal right humerus with malunion. IMPRESSION: 1. Improved diffuse lung disease, consistent with mild pulmonary edema and right lower lung atelectas is versus pneumonia. 2. Small pleural effusions with improvement on the right. 3. Cardiomegaly. Reviewed, dictated and finalized at location A. ERY STRIPER IMPRESSION: 1. Improved diffuse lung disease, consistent with mild pulmonary edema and righ t lower lung atelectasis versus pneumonia. 2. Small pleural effusions with improvement on the right. 3. Cardiomegaly.
--- NOTE | ~2021-03-30 | XR_ITS ---
XR chest 1V portable DATE: 03/30/2021 09:52 INDICATION: Shortness of breath. Wheezing. Crackles. TECHNIQUE: Portable upright AP chest on 03/30/2021 at 0944 hours COMPARISON: 02/27/2020 CT pulmonary scan 01/19/2020 portable FINDINGS: Status post sternotomy and aortic valve replacement. There is pulmonary vascular congestion and redistribution and small bilateral pleural effusions. The re is bilateral central and particularly lower lung infiltrate, right greater than left. The infiltr ates are likely due to pulmonary edema, but pneumonia is not excluded. Old fracture deformity of the right humeral surgical neck. Diffuse osteopenia. There are 3 contigu ous thoracolumbar vertebral plasties. IMPRESSION: Increased congestive changes and bilateral pulmonary infiltrates and pleural effusions co mpared to 01/19/2020, consistent with increased congestive heart failure and pulmonary edema. Pneumon ia is not excluded Reviewed, dictated and finalized at location A. GE CONTRACTOR IMPRESSION: Increased congestive changes and bilateral pulmonary infiltrates an d pleural effusions compared to 01/19/2020, consistent with increased congestiv e heart failure and pulmonary edema. Pneumonia is not excluded
--- NOTE | ~2021-03-30 | XR_ITS ---
EXAMINATION: XR barium swallow modified DATE: 04/01/2021 13:30 INDICATION: Dysphagia. TECHNIQUE: The patient was given barium-containing material of multiple consistencies to swallow by colette benjamin speech pathologist while I performed fluoroscopy. Dose-area product was 2.069 Gy-cm2. 2.1 minutes fluoroscopy time FINDINGS: Oral Stage: Within functional limits Pharyngeal Phase: Within functional limits Cervical/Esophageal Stage: Within functional limits IMPRESSION: Modified esophagram findings as above. Please refer to the speech therapy report [facility]. Reviewed, dictated and finalized at Location A. Reviewed, dictated and finalized at location A. GER FINANCIAL IMPRESSION: Modified esophagram findings as above. Please refer to the speech t herapy report for specific recommendations.
--- NOTE | ~2021-03-30 | XR_ITS ---
XR chest 1V portable DATE: 04/01/2021 09:33 INDICATION: Shortness of breath TECHNIQUE: Portable AP chest on 04/01/2021 at 0922 hours COMPARISON: 03/30/2021 portable AP chest at 0944 hours FINDINGS: Status post sternotomy, coronary bypass graft surgery, aortic valve replacement. Heart size is likely within normal range considering magnification associated with AP projection. The re is aortic arch calcification. There is pulmonary vascular congestion and redistribution. Moderate right pleural effusion and possible small left pleural effusions are suggested. There are mildly increased extensive bilateral pulmonary infiltrates, particularly prominent in the r ight mid and lower lung zones and left lower lung zone. Old healed right surgical neck humeral fracture deformity. Diffuse osteopenia. Dextro scoliosis of the thoracolumbar spine. Vertebroplasty at 3 contiguous thoracolumbar vertebral b odies. IMPRESSION: Extensive bilateral pulmonary infiltrates, mildly increased since 03/30/2021 Reviewed, dictated and finalized at location A. ENGINEER
--- NOTE | 2021-03-30 09:23 | ECG_ITS ---
Measurements Intervals [place] Rate: 102 P: 52 [place]: 158 QRS: -24 QRSD: 122 T: 111 QT: 355 QTc: 464 Interpretive Statements SINUS TACHYCARDIA INTRAVENTRICULAR CONDUCTION DELAY CANNOT RULE OUT SEPTAL INFARCT, AGE INDETERMINATE ST-T WAVE ABNORMALITY IN HIGH LATERAL LEADS- CONSIDER ISCHEMIA BASELINE ARTIFACT- I, II, III, AVR, AVL, AVF, V1, V3-V6 ABNORMAL ECG Electronically Signed On 03-30-2021 9:52:07 MANUFACTURING ENGINEER [employer]INT by Hakan Alcaraz D.O.
--- NOTE | 2021-03-30 09:42 | ED.GENADULT ---
HPI - General Adult General Chief complaint: Shortness of Breath/Dyspnea Stated complaint: pneumonia Time Seen by Provider: 03/30/21 09:10 Source: patient Mode of arrival: EMS Limitations: no limitations History of Present Illness HPI narrative: Patient is 70-year-old female presented with chief complaint of worsening shortness of breath after being diagnosed with pneumonia on Monday. Patient reports that she was being treated with antibiotics but is not being treated with antibiotics at this time. Patient states that she received her Covid vaccinations the last being 6 months ago. Patient reports she has not received a booster. Patient denies any fevers, chills. Patient reports today she became more short of breath at rest. Patient reports she was evaluated by the [facility] staff and sent to the emergency department. Patient states that her pneumonia is bacterial. Patient reports that she is tested for Covid twice weekly and has not tested positive in the past week. Patient reports a history of CHF but denies a known history of COPD or asthma. Patient denies persistent coughing. Related Data Home Medications Medication Instructions Recorded Confirmed buspirone 15 mg tablet 15 mg PO BID tablet 03/13/19 03/05/20 carbidopa ER 50 mg-levodopa 200 mg See Rx Instructions .ROUTE .COMPLEX 03/13/19 03/05/20 tablet,extended release entacapone 200 mg tablet 200 mg PO QID tablet 03/13/19 03/05/20 ropinirole 5 mg tablet 5 mg PO TID tablet 03/13/19 03/05/20 omeprazole 40 mg PO DAILY 09/05/19 03/05/20 atorvastatin 10 mg PO DAILY 01/19/20 03/05/20 carbidopa-levodopa 1 tablet PO DAILY 01/19/20 03/05/20 citalopram 20 mg tablet 20 mg PO DAILY tablet 02/04/20 03/05/20 metoprolol tartrate 50 mg tablet 25 mg PO DAILY tablet 02/04/20 03/05/20 apixaban [Eliquis] mg 02/05/21 hydrocodone-acetaminophen 02/05/21 Allergies Allergy/AdvReac Type Severity Reaction Status Date / Time No Known Allergies Allergy Verified 02/05/21 19:28 Review of Systems Review of Systems: CONSTITUTIONAL: Denies fever, chills, or sweats. EYES: Denies visual changes, redness, or discharge. ENT: Denies rhinorrhea, congestion, sore throat, or otalgia. CARDIOVASCULAR: Denies chest pain, palpitations, or edema. RESPIRATORY: Reports cough or dyspnea. GASTROINTESTINAL: Denies abdominal pain, nausea, vomiting, or diarrhea. GENITOURINARY: Denies dysuria or hematuria. SKIN: Denies rash or itching. MUSCULOSKELETAL: Denies back pain, joint pain, or myalgia. NEUROLOGIC: Denies headache, numbness, dizziness, or weakness. PSYCHIATRIC: Denies anxiety or depression. [facility] Past Medical History Medical History Anxiety Aortic stenosis due to bicuspid aortic valve Essential hypertension Fracture of right distal radius Treated nonsurgically with cast January 2020 Lumbar burst fracture (~2017) Status post lumbar fusion at L1-L2. Osteoporosis Parkinson disease Restless leg syndrome Right humeral fracture (~12/2018) Treated nonsurgically and followed by Dr. Lagos. Imaging 06/04/2019 showed reasonable alignment with abundant maturing bone at fracture site. Surgical History Surgical History H/O cardiac catheterization August of 2019 reported as clear History of cataract extraction History of foot surgery Right plantar fasciitis release. History of lumbar fusion (~02/2018) L1-L2. Family History Family History Mother , at age 76 Pulmonary fibrosis Heart valve replaced Father , diet age 87 Alzheimer's dementia Social History Social History Social History: The patient lived in an apartment alone in [place], [place] but is currently living with her 1 and only daughter catalina. She denies alcohol, tobacco, and drug use. She has 1 daughter
[2021-03-30 09:48] LABS: Basophils Percent Auto 0.5 % (0.2-1.2); Eosinophils Absolute Auto 0.4 K/mm3 (0-0.3); Eosinophils Percent Auto 6.2 % (0-4.4); Hematocrit 34.1 % (37.0-47.0); Hemoglobin 10.3 g/dL (12.0-15.0); Immature Granulocyte Absolute 0.02 K/mm3 (0.00-0.031); Immature Granulocyte Percent A 0.3 % (0-0.5); Lymphocytes Percent Auto 21.2 % (18.3-44.2); Mean Corpuscular HGB Conc 30.2 g/dl (32-36); Mean Corpuscular Hemoglobin 27.3 pg (26-34); Mean Corpuscular Volume 90.5 fl (80-100); Mean Platelet Volume 9.8 fl (7.4-10.4); Monocytes Absolute Auto 0.5 K/mm3 (0.1-0.6); Monocytes Percent Auto 8.3 % (2.6-8.5); Neutrophils Absolute Auto 3.9 K/mm3 (1.3-6.7); Neutrophils Percent Auto 63.5 % (45.5-73.1); Platelet Count Result 212 k/mm3 (150-375); Red Blood Count 3.77 M/mm3 (4.2-5.4); Red Cell Distribution Width 13.1 % (11.5-14.5); White Blood Count 6.1 K/mm3 (4.5-10.0)
[2021-03-30] MEDS: methylPREDNISolone SOD SUCC 125 MG VIAL IV PUSH (09:51)
[2021-03-30] MEDS: ALBUTEROL SULFATE NEB 2.5 MG/0.5 ML INH 5 MG INHALATION (09:52)
[2021-03-30] MEDS: IPRATROPIUM BR 0.02% INH SOLN 0.5 MG/2.5 ML VIAL INHALATION (09:52)
[2021-03-30 10:01] LABS: Alanine Aminotransferase 9 U/L (4-35); Albumin Level 3.6 g/dL (3.5-5.1); Alkaline Phosphatase 243 U/L (38-126); Anion Gap 9 mmol/L (8-16); Aspartate Amino Transferase 35 U/L (14-36); Bilirubin,Total 1.4 mg/dL (0.2-1.3); Blood Urea Nitrogen 17 mg/dL (7-17); Carbon Dioxide 23 mmol/L (22-30); Chloride 106 mmol/L (98-107); Estimated CRCL calculation 56 ml/min; Estimated Glomerular Filt Rate > 60; Glucose 94 mg/dL (65-110); Potassium 4.2 mmol/L (3.4-5.0); Sodium 138 mmol/L (137-145)
[2021-03-30 10:04] LABS: EDCOVIDSCREEN Negative (Negative)
[2021-03-30 10:10] LABS: NT Pro B Type Natriuretic Pept 10700 pg/mL (5-100)
[2021-03-30] MEDS: FUROSEMIDE INJ 40 MG/4 ML VIAL IV PUSH (10:22)
[2021-03-30] MEDS: PIPERACILLIN/TAZOBACTAM SOD 4.5 GM in SODIUM CHLORIDE 0.9% IV 100 ML 200 ML IVPB ×3 (11:34→23:59)
--- NOTE | 2021-03-30 14:00 | PC.NURSE ---
Attempted to call report to Marly NAILS, x1
--- NOTE | 2021-03-30 14:38 | PC.NURSE ---
Called report to Marly NAILS no further questions or concerns
--- NOTE | 2021-03-30 15:36 | ADMGEN ---
This patient, Nina Hudson, was admitted to 2 Medical Room 249-01. Patient/family oriented to hospital policies and general routines including ID bracelet, bed and alarms, visiting hours, pain management, procedures, bathroom and other care routines, personal items, smoking policy, room service/diet, and visiting hours. Information on how to activate the Rapid Response Team has been discussed. Patient/Family are encouraged to report perceived risks to care and to ask questions if they do not understand what they are told or what they should do.
--- NOTE | 2021-03-30 16:06 | PM.IMHP ---
H&P: HPI History of Present Illness Date/Time: 03/30/21 1400 cc: shortness of breath, dyspnea. HPI:Patient is 70-year-old female with a past medical history including but not limited to HTN, critical aortic valve stenosis s/p repair(2019), presented with chief complaint of worsening shortness of breath after being diagnosed with pneumonia at the [facility] on Monday. The patient was very sick and was on hospice for 6 months; she gradually improved and her daughter revoked the DNR/DNI. Patient reports that she was being treated with antibiotics without improvement of her symptoms. She now requires oxygen supplementation 3 liters. Patient states that she received her Covid vaccinations the last being 6 months ago. Patient reports she has not received a booster. Patient denies any fevers, chills. Patient reports today she became more short of breath at rest. Patient reports she was evaluated by the [facility] staff and sent to the emergency department. Patient reports that she is tested for Covid twice weekly and has not tested positive in the past week. Patient reports a history of CHF but denies a known history of COPD or asthma. Patient denies persistent coughing. Patient is a [facility] resident and history is mainly gathered from her daughter and chart review. The patient's vital signs are a temperature 97.6F, pulse 111, R 30, BP 126/963, pulse oximetry 97%. Chief Complaint: Shortness of breath. Review of Systems Review of Systems: All systems reviewed & are unremarkable except as noted in HPI and below Constitutional: Constitutional: Reports as per HPI, Reports fatigue, Reports lethargy and Reports weakness Eyes: Eyes: Reports as per HPI and Denies blurry vision ENT: Reports as per HPI and Denies epistaxis Cardiovascular: Cardiovascular: Reports as per HPI, Denies chest pain, Denies leg edema and Denies palpitations Respiratory: Respiratory: Reports as per HPI, Denies chest congestion, Reports cough, Reports dyspnea, Reports dyspnea on exertion and Denies wheezing Gastrointestinal: Gastrointestinal: Reports as per HPI, Denies abdominal pain, Denies hematochezia, Denies constipation, Denies diarrhea, Denies nausea and Denies vomiting Genitourinary: Genitourinary: Reports no additional female genitourinary complaints and Reports as per HPI Musculoskeletal: Musculoskeletal: Reports no additional musculoskeletal complaints, Reports as per HPI and Reports joint swelling Integumentary/Breasts: Skin/Breast: Reports system reviewed and no additional complaints, except as docu, Reports as per HPI and Denies rash Neurologic: Reports system reviewed and no additional complaints, except as documented and Reports as per HPI Psychiatric: Psychiatric: Reports no additional psychiatric complaints and Reports as per HPI [facility] Past Medical History Medical History Anxiety Aortic stenosis due to bicuspid aortic valve Essential hypertension Fracture of right distal radius Treated nonsurgically with cast January 2020 Lumbar burst fracture (~2017) Status post lumbar fusion at L1-L2. Osteoporosis Parkinson disease Restless leg syndrome Right humeral fracture (~12/2018) Treated nonsurgically and followed by Dr. Lagos. Imaging 06/04/2019 showed reasonable alignment with abundant maturing bone at fracture site. Surgical History Surgical History H/O cardiac catheterization August of 2019 reported as clear History of cataract extraction History of foot surgery Right plantar fasciitis release. History of lumbar fusion (~02/2018) L1-L2. Family History Family History Mother , at age 76 Pulmonary fibrosis Heart valve replaced Father , diet age 87 Alzheimer's dementia Social History Social History Social Histor
[2021-03-30] MEDS: APIXABAN 5 MG TABLET PO (22:21)
[2021-03-30] MEDS: traZODone HCL 50 MG TABLET PO (22:21)
[2021-03-30] MEDS: busPIRone HCL 5 MG TABLET 15 MG PO (22:21)
[2021-03-30] MEDS: ATORVASTATIN 40 MG TABLET PO (22:22)
[2021-03-30] MEDS: CARBIDOPA/LEVODOPA 25/100 MG CR TABLET 1 TABLET PO (22:22)
[2021-03-30] MEDS: DOXYCYCLINE HYCLATE 100 MG TABLET PO (22:22)
[2021-03-31] VITALS (12 sets, daily range): BP systolic 98–130; BP diastolic 65–76; PULSE 77–98; RESP 16–21; TEMP 36.4–37.1; O2SAT 98–100; BMI 22.1
[2021-03-31] MEDS: CALCIUM CARBONATE (TUMS) 500 MG (200 MG ELEMENTAL) 400 MG PO (00:11)
[2021-03-31] MEDS: ALBUTEROL SULFATE NEB 2.5 MG/0.5 ML INH INHALATION (00:23)
[2021-03-31] MEDS: IPRATROPIUM BR 0.02% INH SOLN 0.5 MG/2.5 ML VIAL INHALATION (00:24)
[2021-03-31] MEDS: PIPERACILLIN/TAZOBACTAM SOD 4.5 GM in SODIUM CHLORIDE 0.9% IV 100 ML 200 ML IVPB ×4 (05:21→23:38)
[2021-03-31] MEDS: LEVOTHYROXINE SODIUM 150 MCG TABLET PO (06:06)
[2021-03-31] MEDS: SENNA/DOCUSATE SODIUM TABLET 2 TAB PO (09:31)
[2021-03-31] MEDS: CITALOPRAM HYDROBROMIDE 20 MG TABLET 40 MG PO (09:31)
[2021-03-31] MEDS: DOXYCYCLINE HYCLATE 100 MG TABLET PO ×2 (09:31→21:19)
[2021-03-31] MEDS: BISACODYL 5 MG TABLET EC PO (09:31)
[2021-03-31] MEDS: busPIRone HCL 5 MG TABLET 15 MG PO ×2 (09:31→17:17)
[2021-03-31] MEDS: THERAPEUTIC MULTIVITAMINS/MINERALS TAB (*BKC) 1 TABLET PO (09:31)
[2021-03-31] MEDS: CARBIDOPA/LEVODOPA 25/100 MG CR TABLET 1 TABLET PO ×4 (09:31→21:20)
[2021-03-31] MEDS: LACTULOSE 20 GM/30 ML UDC PO (09:31)
[2021-03-31] MEDS: APIXABAN 5 MG TABLET PO ×2 (09:31→17:17)
[2021-03-31] MEDS: polyethylene glycoL 3350 17 GM POWD.PACK PO (09:31)
--- OUTSIDE RECORDS SUMMARY | 2021-03-31 11:04 | XMS_ITS ---
:1950 Author Care Team Providers Name Role Phone DR. NAHOMY HURST Primary Care Provider [phone] DR. NAHOMY HURST Referring Provider [phone] Allergies Code Code System Name Reaction Severity Status Onset Sulfa ? ? Active ? (Sulfonamid e Antibiotics ) Medications Name Status Start Date Stop Date ? ? alprazolam 0.25 mg tablet Active ? Not av ailable amoxicillin 875 mg-potassium Completed ? 11/2019 clavulanate 125 mg tablet atorvastatin 10 mg tablet Active ? Not av ailable buspirone 15 mg tablet Active ? Not avail able carbidopa 10 mg-levodopa 100 mg tablet Active ? Not available carbidopa ER 50 mg-levodopa 200 mg Active ? Not available tablet,extended release ciprofloxacin 250 mg tablet Completed ? 09/2019 ciprofloxacin 500 mg tablet Completed ? 09/2019 citalopram 20 mg tablet Completed ? 12/30/19 20 citalopram 40 mg tablet Active ? Not avai lable entacapone 200 mg tablet Active ? Not ev ilable Fluzone High-Dose Quad (PF) 240 Completed ? 02/03/2020 mcg/0.7 mL IM syringe furosemide 20 mg tablet Active ? Not avai lable metoprolol tartrate 50 mg tablet Completed ? 03/02/2020 1 tablet once nightly omeprazole 40 mg capsule,delayed Active ? Not available release
--- NOTE | 2021-03-31 11:22 | PM.IMPN ---
Progress Note: A&P Assessment and Plan (1) Parkinson disease: Code(s): G20 - Parkinson's disease Status: Acute Assessment and Plan: Continue carbidopa-levodopa (2) S/P TAVR (transcatheter aortic valve replacement): Code(s): Z95.2 - Presence of prosthetic heart valve Status: Acute Assessment and Plan: Pt follows up with Cardiology (3) Bilateral pulmonary infiltrates on CXR: Code(s): R91.8 - Other nonspecific abnormal finding of lung field Status: Acute Assessment and Plan: Pt is unwell with cough and sob. CXR shows increased congestive changes and bilateral pulmonary infiltrates and pleural effusions compared to 01/19/2020, consistent with increased congestive heart failure and pulmonary edema. Pt state on iv zosyn i will add vancomycin in case of risk of aspiration and order MBS as pt has difficulty swallowing today. (4) CHF (congestive heart failure): Code(s): I50.9 - Heart failure, unspecified Status: Acute Assessment and Plan: Pt is sob at rest needing oxygen. Chest x-ray shows increased congestive changes and suggests congestive heart failure and pulmonary edema. Patient started on IV Lasix or diuresis. (5) DVT prophylaxis: Code(s): Z29.9 - Encounter for prophylactic measures, unspecified Status: Acute Assessment and Plan: Pt is on eliquis (6) Acute respiratory failure with hypoxia: Code(s): J96.01 - Acute respiratory failure with hypoxia Status: Acute Assessment and Plan: Continue to monitor order CXR maria t AM (7) Aortic stenosis due to bicuspid aortic valve: Code(s): Q23.0 - Congenital stenosis of aortic valve; Q23.1 - Congenital insufficiency of aortic valve Status: Acute Assessment and Plan: Pt has had aortic valve replaced (8) Acute CHF: Qualifiers: Heart failure type: unspecified Qualified Code(s): I50.9 - Heart failure, unspecified Code(s): I50.9 - Heart failure, unspecified Status: Chronic Assessment and Plan: Continue iv lasix monitor BMP and BNP (9) Anxiety: Code(s): F41.9 - Anxiety disorder, unspecified Status: Chronic Assessment and Plan: Continue with Celexa the Xanax and buspirone per home regimen (10) Essential hypertension: Code(s): I10 - Essential (primary) hypertension Status: Chronic Assessment and Plan: Continue metoprolol as tolerated Subjective Date/time seen: 03/31/21 11:22 Interval history: Interval history: 70-year-old female with a past medical history including but not limited to HTN, critical aortic valve stenosis s/p repair(2019), presented with chief complaint of worsening shortness of breath [facility] Presents again with pneumonia and ChF exacerbation. Pt has past medical history of past medical history including but not limited to HTN, critical aortic valve stenosis s/p repair(2019). Pt is sob today coughing unwell, needing 4 liters of oxygen. Pt having problems with swallowing her medications usually pt is on regular diet and off oxygen. Review of Systems Review of Systems: All systems reviewed & are unremarkable except as noted in HPI and below Exam Narrative: GENERAL: Frail elderly coughing weak HEAD: Normocephalic, atraumatic. CHEST: Sob at rest with oxygen, BL BS HEART: Regular rate and rhythm. EXTREMITIES: Normal range of motion. SKIN: Warm, dry, no rash. NEURO: No focal deficits. Alert and oriented x3. With parkinsons PSYCH: Normal mood and affect. Objective Data Vital Signs Vital Signs: Vital Signs - 24 hr 03/30/21 11:30 03/30/21 11:45 03/30/21 12:00 Temperature Pulse Rate 91 95 93 Respiratory Rate 26 H 31 H 28 H Blood Pressure Pulse Oximetry 97 97 03/30/21 12:14 03/30/21 12:15 03/30/21 12:16 Temperature Pulse Rate 95 97 95 Respiratory Rate 26 H 31 H 29 H Blood Press
--- OUTSIDE RECORDS SUMMARY | 2021-03-31 12:13 | XMS_ITS ---
:1950 Author Care Team Providers Name Role Phone DR. NAHOMY HURST Primary Care Provider [phone] DR. NAHOMY HURST Referring Provider [phone] Allergies Code Code System Name Reaction Severity [...]
[2021-03-31] MEDS: FUROSEMIDE TABLET 20 MG, FUROSEMIDE TABLET 40 MG 60 MG PO (13:37)
--- NOTE | 2021-03-31 15:23 | PCSTNOTE ---
Patient was screened at Bedside this afternoon and was able to drink soda per straw and eat several pieces of chocolate chip cookie with no evidence of penetration or aspiration. Voice remained clear and no coughing noted. Nurse noted difficulty taking pill with water this morning. Patient admitted to coughing when she is ill but denied difficulty swallowing. A Modified Barium Swallow study cannot be completed this afternoon but will be attempted in the morning. Patient may continue to consume oral feedings unless she shows any outward signs of aspiration.
--- NOTE | 2021-03-31 15:59 | PM.CNCAR ---
Assessment and Plan Assessment and plan (1) Acute respiratory failure with hypoxia: Code(s): J96.01 - Acute respiratory failure with hypoxia Status: Acute Assessment and Plan: O2 supplementation per primary service. Wean as tolerated. Secondary to combination of acute on chronic decompensated heart failure with reduced ejection fraction and probable pneumonia. Will give Lasix 40 mg IV x1 in a.m. BP permitting. Discussed all this at length with patient at bedside and her daughter on the phone. Spent 65 minutes in the care of this patient at bedside including discussions, physical examination, chart review, discussion with the patient and her daughter, and medical decision making. (2) Acute on chronic HFrEF (heart failure with reduced ejection fraction): Code(s): I50.23 - Acute on chronic systolic (congestive) heart failure Status: Acute Assessment and Plan: As above, EF 35% postoperatively. Will check for most recent echocardiogram otherwise repeat 2D echocardiogram to assess LV function. If LV dysfunction is again noted guideline directed medical therapy as tolerated will be discussed and initiated. (3) Bilateral pulmonary infiltrates on CXR: Code(s): R91.8 - Other nonspecific abnormal finding of lung field Status: Acute Assessment and Plan: As above. Management per primary service. Continue O2 supplementation, bronchodilator therapy as appropriate and IV antibiotics. She is clinically improving thus far. (4) Ischemic cardiomyopathy: Code(s): I25.5 - Ischemic cardiomyopathy Status: Acute Assessment and Plan: EF 35% by echocardiogram March 2020. Review most recent echocardiogram if not obtained repeat this hospitalization to clarify LV function and bioprosthetic aortic valve function. (5) Status post aortic valve replacement with bioprosthetic valve: Code(s): Z95.3 - Presence of xenogenic heart valve Status: Acute Assessment and Plan: Her exam is not suggest significant dysfunction of the aortic bioprosthetic valve. 2D echocardiogram if not obtained recently. (6) CAD (coronary artery disease): Code(s): I25.10 - Atherosclerotic heart disease of [place] coronary artery without angina pectoris Status: Acute Assessment and Plan: Coronary angiography August 2019 mention no obstructive CAD. Patient does not relay anginal symptoms. However, subsequent to AVR in cardiogenic shock left main stenosis with noted on angiography assessment stating emergent SVG to LAD. She is not on aspirin as she is on apixaban. Need to clarify justification for apixaban at this time. Continue statin therapy. (7) Status post aorto-coronary artery bypass graft: Code(s): Z95.1 - Presence of aortocoronary bypass graft Status: Acute Assessment and Plan: As above. Continue medical therapy with atorvastatin History of Present Illness History of Present Illness Consult date/time: Date of service: 03/31/21 15:59 Cardiology consultation at the request of Dr. Rausch of the [facility] service for our opinion regarding congestive heart failure and history of aortic valve replacement Requesting physician: Rebecca Rausch MD Consult reason: congestive heart failure Reason For Visit: CHF exacerbation with pneumonia Narrative: Patient is a complicated 70-year-old female with past medical history significant for hypertension, ischemic cardiomyopathy EF 35%, status post bioprosthetic aortic valve replacement 23 mm 03/09/2020 with emergent subsequent 1 vessel CABG with SVG to LAD for left main stenosis, cardiogenic shock, history of critical bicuspid aortic valve stenosis, Parkinson's who was admitted 03/30/2021 presenting from a long term with complaints of progressive shortness of breath, fatigue and cough. She was diagnosed with pneumonia Monday prior to presentation due to worsening symptoms present to the ER. She has required at least
[2021-03-31] MEDS: ATORVASTATIN 40 MG TABLET PO (21:19)
[2021-03-31] MEDS: traZODone HCL 50 MG TABLET PO (21:20)
[2021-03-31] MEDS: HYDROcodone/acetaminophen (*CRX) 5-325 MG TABLET 1 TAB PO (21:22)
[2021-04-01] VITALS (13 sets, daily range): BP systolic 95–112; BP diastolic 55–78; PULSE 72–93; RESP 16–20; TEMP 36.6; O2SAT 95–100
[2021-04-01] MEDS: ACETAMINOPHEN 325 MG TABLET 650 MG PO (00:42)
[2021-04-01] MEDS: PIPERACILLIN/TAZOBACTAM SOD 4.5 GM in SODIUM CHLORIDE 0.9% IV 100 ML 200 ML IVPB ×4 (05:27→23:37)
[2021-04-01] MEDS: LEVOTHYROXINE SODIUM 150 MCG TABLET PO (06:08)
[2021-04-01 08:39] LABS: Anion Gap 4 mmol/L (8-16); Blood Urea Nitrogen 22 mg/dL (7-17); Calcium 8.8 mg/dL (8.4-10.2); Carbon Dioxide 33 mmol/L (22-30); Chloride 99 mmol/L (98-107); Estimated CRCL calculation 44 ml/min; Estimated Glomerular Filt Rate > 60; Glucose 96 mg/dL (65-110); Potassium 3.5 mmol/L (3.4-5.0); Sodium 136 mmol/L (137-145)
[2021-04-01 08:41] LABS: Estimated CRCL calculation 49 ml/min; Estimated Glomerular Filt Rate > 60
[2021-04-01 08:48] LABS: NT Pro B Type Natriuretic Pept 13800 pg/mL (5-100)
--- NOTE | 2021-04-01 09:44 | PM.PNCARD ---
Progress Note: A&P Assessment and Plan (1) Acute respiratory failure with hypoxia: Code(s): J96.01 - Acute respiratory failure with hypoxia Status: Acute Assessment and Plan: O2 supplementation per primary service. Wean as tolerated. Secondary to combination of acute on chronic decompensated heart failure with reduced ejection fraction and probable pneumonia. Will give Lasix 20 mg IV x1 in early this afternoon BP permitting. BNP continues to risk and she remains on significant O2 supplementation. True volume status difficult to assess as accurate input and output not documented. Need to monitor BP renal function and electrolytes closely with additional diuresis. Echo pending. Will review when available. Recommendations to follow. (2) Acute on chronic HFrEF (heart failure with reduced ejection fraction): Code(s): I50.23 - Acute on chronic systolic (congestive) heart failure Status: Acute Assessment and Plan: As above, EF 35% postoperatively 03/2020. Still awaiting echocardiogram. If LV dysfunction is again noted guideline directed medical therapy as tolerated will be discussed and initiated. (3) Bilateral pulmonary infiltrates on CXR: Code(s): R91.8 - Other nonspecific abnormal finding of lung field Status: Acute Assessment and Plan: As above. Management per primary service. Continue O2 supplementation, bronchodilator therapy as appropriate and IV antibiotics. She is clinically improving thus far. Intravenous Zosyn and vancomycin per primary service. (4) Ischemic cardiomyopathy: Code(s): I25.5 - Ischemic cardiomyopathy Status: Acute Assessment and Plan: As above. EF 35% by echocardiogram March 2020. She is not currently on guideline directed medical therapy and would benefit as such as clinically appropriate. This is likely because she was on hospice last year and then removed. (5) Status post aortic valve replacement with bioprosthetic valve: Code(s): Z95.3 - Presence of xenogenic heart valve Status: Acute Assessment and Plan: It had been documented by other services the patient TAVR. She did not. She underwent open surgical aortic valve replacement and not TAVR. She had a 23 mm Inspiris bioprosthetic AVR performed at although TAVR was initially considered. Her exam is not suggest significant dysfunction of the aortic bioprosthetic valve. 2D echocardiogram pending. Indication for Eliquis remains unclear. (6) CAD (coronary artery disease): Code(s): I25.10 - Atherosclerotic heart disease of [place] coronary artery without angina pectoris Status: Acute Assessment and Plan: Patient does not relay anginal symptoms. However, subsequent to AVR in cardiogenic shock left main stenosis with noted on angiography assessment stating emergent SVG to LAD. She is not on aspirin as she is on apixaban. Need to clarify justification for apixaban at this time. Continue statin therapy. (7) Status post aorto-coronary artery bypass graft: Code(s): Z95.1 - Presence of aortocoronary bypass graft Status: Acute Assessment and Plan: As above. Continue medical therapy with atorvastatin Subjective Date/time seen: date of service: 04/01/21 09:44 Follow-up for CHF, pneumonia, history of cardiomyopathy, status post aortic valve replacement, 1 vessel CABG 04/01/20 patient states she feels even better this morning than yesterday, less short of breath but remains on 4L O2 via nc. Denies chest pain. No new issues overnight. Echocardiogram pending. Afebrile. No urine output documented which is inaccurate overnight. Review of Systems Review of Systems: All systems reviewed & are unremarkable except as noted in HPI and below Constitutional: Constitutional: Reports as per HPI, Reports no additional constitutional complaints, Reports fatigue, Reports lethargy and Reports weakness Eyes: Eyes: Reports as per HPI and
[2021-04-01] MEDS: APIXABAN 5 MG TABLET PO ×2 (10:25→16:24)
[2021-04-01] MEDS: SENNA/DOCUSATE SODIUM TABLET 2 TAB PO (10:25)
[2021-04-01] MEDS: busPIRone HCL 5 MG TABLET 15 MG PO ×2 (10:25→16:24)
[2021-04-01] MEDS: CITALOPRAM HYDROBROMIDE 20 MG TABLET 40 MG PO (10:25)
[2021-04-01] MEDS: BISACODYL 5 MG TABLET EC PO (10:26)
[2021-04-01] MEDS: CARBIDOPA/LEVODOPA 25/100 MG CR TABLET 1 TABLET PO ×4 (10:26→20:31)
[2021-04-01] MEDS: THERAPEUTIC MULTIVITAMINS/MINERALS TAB (*BKC) 1 TABLET PO (10:26)
[2021-04-01] MEDS: FUROSEMIDE TABLET 20 MG, FUROSEMIDE TABLET 40 MG 60 MG PO (10:26)
[2021-04-01] MEDS: LACTULOSE 20 GM/30 ML UDC PO (10:27)
[2021-04-01] MEDS: DOXYCYCLINE HYCLATE 100 MG TABLET PO ×2 (10:27→20:31)
[2021-04-01] MEDS: polyethylene glycoL 3350 17 GM POWD.PACK PO (10:27)
[2021-04-01] MEDS: ALBUTEROL SULFATE NEB 2.5 MG/0.5 ML INH INHALATION (11:25)
[2021-04-01] MEDS: IPRATROPIUM BR 0.02% INH SOLN 0.5 MG/2.5 ML VIAL INHALATION (11:30)
--- NOTE | 2021-04-01 13:30 | PCSTNOTE ---
Please refer to the Modified Barium Swallow Evaluation in the EMR.
--- NOTE | 2021-04-01 14:27 | PCOTNOTE ---
Attempted to evaluate pt. for occupational therapy. Pt. eating lunch and requested to be evaluated at a later time
--- NOTE | 2021-04-01 14:47 | PM.IMPN ---
Progress Note: A&P Assessment and Plan (1) Bilateral pulmonary infiltrates on CXR: Code(s): R91.8 - Other nonspecific abnormal finding of lung field Status: Acute Assessment and Plan: CXR-->increased congestive changes and bilateral pulmonary infiltrate and pleural effusion Repeat CXR on 03/31-->Extensive bilateral pulmonary infiltrates, mildly increased since 03/30/2021 Continue Vanc, Zosyn, doxy Follow-up cultures Supplement O2 to keep sats >93% Duo nebs (2) Acute on chronic HFrEF (heart failure with reduced ejection fraction): Code(s): I50.23 - Acute on chronic systolic (congestive) heart failure Status: Acute Assessment and Plan: Patient present with acute respiratory failure and new oxygen requirement proBNP 13,800 Chest x-ray shows increased congestive changes and suggests congestive heart failure and pulmonary edema Continue IV Lasix Cardiology consulted Repeat CXR on 03/31-->Extensive bilateral pulmonary infiltrates, mildly increased since 03/30/2021 ECHO-->EF 30-35%, Moderate mitral valve regurgitation, mitral valve annulus is severely calcified Monitor I/O Daily weights Monitor BMP (3) Essential hypertension: Code(s): I10 - Essential (primary) hypertension Status: Chronic Assessment and Plan: Continue metoprolol as tolerated (4) Status post aorto-coronary artery bypass graft: Code(s): Z95.1 - Presence of aortocoronary bypass graft Status: Acute (5) Anxiety: Code(s): F41.9 - Anxiety disorder, unspecified Status: Chronic Assessment and Plan: Continue with Celexa the Xanax and buspirone per home regimen (6) Parkinson disease: Code(s): G20 - Parkinson's disease Status: Acute Assessment and Plan: Continue carbidopa-levodopa (7) Acute respiratory failure with hypoxia: Code(s): J96.01 - Acute respiratory failure with hypoxia Status: Acute Assessment and Plan: 2/2 to A/C CHF Treatment as above (8) Presence of xenogenic heart valve: Code(s): Z95.3 - Presence of xenogenic heart valve Status: Acute Assessment and Plan: S/p open surgical aortic valve replacement ECHO noted above Cardiology following, recommendations appreciated Per cards indication for Eliquis unclear (9) Ischemic cardiomyopathy: Code(s): I25.5 - Ischemic cardiomyopathy Status: Acute Assessment and Plan: Cardiology following, recommendations appreciated No home meds; was on hospice last year (10) Difficulty swallowing: Code(s): R13.10 - Dysphagia, unspecified Status: Acute Assessment and Plan: Passed MBS Continue heart healthy diet Consider crushing pills in applesauce Subjective Date/time seen: 04/01/21 14:47 Interval history: Interval history: 70-year-old female with a past medical history including but not limited to HTN, critical aortic valve stenosis s/p repair(2019), presented with chief complaint of worsening shortness of breath diagnosed with pneumonia at the [facility] on Monday. Presents again with pneumonia and ChF exacerbation. Pt has past medical history of past medical history including but not limited to HTN, critical aortic valve stenosis s/p repair(2019). 03/31/2021: Pt is sob today coughing unwell, needing 4 liters of oxygen. Pt having problems with swallowing her medications usually pt is on regular diet and off oxygen. 04/01/2021: Pt seen and examined; labs, vs, diagnostic reports, consult notes reviewed; MBS and ECHO today; on 4L O2, +SOB Review of Systems Review of Systems: All systems reviewed & are unremarkable except as noted in HPI and below Exam Const: General: no acute distress Nutritional Appearance: thin HENMT: Head: normocephalic and atraumatic Resp: Auscultation: crackles Cardio: Jugular venous distension: no JVD Rate: regular rate Rhythm: regular rhythm Heart sounds: S1 normal heart sound present and S2 normal heart sound p
[2021-04-01] MEDS: FUROSEMIDE INJ 40 MG/4 ML VIAL 20 MG IV PUSH (16:24)
[2021-04-01] MEDS: POTASSIUM CHLORIDE 20 MEQ PACKET (FOR LIQUID) 40 MEQ PO (16:24)
--- NOTE | 2021-04-01 16:36 | ECHO_ITS ---
Patient Info Name: Nina Hudson Age: 70 years : 1950 Gender: Female Ht: 64 in Wt: 128 lbs BSA: 1.62 m2 HR: 94 bpm BP: 95 / 55 mmHg Heart Rhythm: Sinus Rhythm Technical Quality: Fair Exam Date: 04/01/2021 7:58 AM Exam Location: [facility] Patient Status: Inpatient Admit Date: 03/31/2021 Staff Ordering Physician: César Cho MD Detonator Maker: Ora Jones RDCS Attending Provider: Keri Amaral MD Referring Physician: Marquis CHOWDARY; Exam Type: CA echo doppler color flow Study Info Indications - Status post aortic valve replacement, chf Complete two-dimensional, color flow and Doppler transthoracic echocardiogram is performed. Summary 1. Complete two-dimensional, color flow and Doppler transthoracic echocardiogram is performed. 2. Left ventricular chamber dimension is normal. 3. Left ventricular systolic function is moderately reduced, estimated at 30-35% with akinesis of the mid anterior wall and the anteroseptal wall with severe hypokinesis of the anterolateral, and mid to basal inferoseptal locke. 4. There is no increased left ventricular wall thickness. 5. Right ventricular chamber dimension is mildly enlarged. 6. Right ventricular systolic function is mildly reduced. 7. The bioprosthetic aortic valve leaflets are not well visualized. The valve appears well seated, no evidence of wu-valvular leak. 8. There is moderate mitral valve regurgitation. 9. The mitral valve annulus is severely calcified. 10. Bioprosthetic aortic valve gradients appear to be within normal limits without hemodynamically significant prosthetic valve stenosis. Peak velocity 2.3m/s, MARTA 1.4cm2 with a mean gradient of 11mmHg. 11. There is mild tricuspid valve regurgitation. 12. Moderate pulmonary hypertension, estimated pulmonary arterial systolic pressure is 46 mmHg. Left Ventricle Left ventricular chamber dimension is normal. Left ventricular systolic function is moderately reduced, estimated at 30-35% with akinesis of the mid anterior wall and the anteroseptal wall with severe hypokinesis of the anterolateral, and mid to basal inferoseptal locke. There is no increased left ventricular wall thickness. The left ventricular diastolic function is grade III diastolic dysfunction. Right Ventricle Right ventricular chamber dimension is mildly enlarged. Right ventricular systolic function is mildly reduced. Left Atria Left atrial chamber dimension is mildly enlarged. Right Atria Right atrial chamber dimension is mildly enlarged. Aortic Valve The bioprosthetic aortic valve leaflets are not well visualized. The valve appears well seated, no evidence of wu-valvular leak. Bioprosthetic aortic valve gradients appear to be within normal limits without hemodynamically significant prosthetic valve stenosis. Peak velocity 2.3m/s, MARTA 1.4cm2 with a mean gradient of 11mmHg. Pulmonic Valve The pulmonic valve is normal. There is trace pulmonic regurgitation. Mitral Valve The mitral valve has thickened leaflets. There is moderate mitral valve regurgitation. The mitral valve annulus is severely calcified. Tricuspid Valve The tricuspid valve leaflets are normal. There is mild tricuspid valve regurgitation. Moderate pulmonary hypertension, estimated pulmonary arterial systolic pressure is 46 mmHg. Pericardium/Pleural The pericardium appears normal. There is moderate sized anteriorly located pericardial effusion up to 1.5cm without echocardiographic evidence of tamponade physiology. Ascit
[2021-04-01] MEDS: ATORVASTATIN 40 MG TABLET PO (20:31)
[2021-04-01] MEDS: traZODone HCL 50 MG TABLET PO (20:31)
[2021-04-01] MEDS: HYDROcodone/acetaminophen (*CRX) 5-325 MG TABLET 1 TAB PO (20:32)
[2021-04-02] VITALS (13 sets, daily range): BP systolic 96–109; BP diastolic 52–71; PULSE 72–92; RESP 16–18; TEMP 36.2–36.6; O2SAT 91–97
[2021-04-02] MEDS: HYDROcodone/acetaminophen (*CRX) 5-325 MG TABLET 1 TAB PO (03:17)
[2021-04-02] MEDS: PIPERACILLIN/TAZOBACTAM SOD 4.5 GM in SODIUM CHLORIDE 0.9% IV 100 ML 200 ML IVPB ×3 (05:22→17:22)
[2021-04-02 05:41] LABS: Hematocrit 31.8 % (37.0-47.0); Hemoglobin 9.9 g/dL (12.0-15.0); Mean Corpuscular HGB Conc 31.1 g/dl (32-36); Mean Corpuscular Volume 86.6 fl (80-100); Mean Platelet Volume 10.4 fl (7.4-10.4); Platelet Count Result 219 k/mm3 (150-375); Red Blood Count 3.67 M/mm3 (4.2-5.4); Red Cell Distribution Width 12.6 % (11.5-14.5); White Blood Count 5.7 K/mm3 (4.5-10.0)
[2021-04-02 06:00] LABS: Anion Gap 7 mmol/L (8-16); Blood Urea Nitrogen 18 mg/dL (7-17); Calcium 8.4 mg/dL (8.4-10.2); Carbon Dioxide 34 mmol/L (22-30); Chloride 95 mmol/L (98-107); Estimated CRCL calculation 44 ml/min; Estimated Glomerular Filt Rate > 60; Glucose 91 mg/dL (65-110); Potassium 2.9 mmol/L (3.4-5.0); Sodium 136 mmol/L (137-145)
--- NOTE | 2021-04-02 07:30 | WPDPN ---
Progress Note: A&P Assessment and Plan (1) Bilateral pulmonary infiltrates on CXR: Code(s): R91.8 - Other nonspecific abnormal finding of lung field Status: Acute Assessment and Plan: CXR indicates increased congestive changes and bilateral pulmonary infiltrate and pleural effusion Repeat CXR on 03/31 indicates Extensive bilateral pulmonary infiltrates, mildly increased since 03/30/2021 Continue Vanc, Zosyn, doxy Follow-up cultures preliminary no growth Supplement O2 to keep sats >93% Duo nebs (2) Acute on chronic HFrEF (heart failure with reduced ejection fraction): Code(s): I50.23 - Acute on chronic systolic (congestive) heart failure Status: Acute Assessment and Plan: Patient present with acute respiratory failure and new oxygen requirement [id number]> 13,800 Chest x-ray shows increased congestive changes and suggests congestive heart failure and pulmonary edema Continue IV Lasix Cardiology consulted Repeat CXR on 03/31-->Extensive bilateral pulmonary infiltrates, mildly increased since 03/30/2021 ECHO-->EF 30-35%, Moderate mitral valve regurgitation, mitral valve annulus is severely calcified Monitor I/O, reviewed Daily weights, reviewed Monitor BMP (3) Essential hypertension: Code(s): I10 - Essential (primary) hypertension Status: Chronic Assessment and Plan: Continue metoprolol Vital signs was ordered Adjust medication as needed (4) Status post aorto-coronary artery bypass graft: Code(s): Z95.1 - Presence of aortocoronary bypass graft Status: Acute (5) Anxiety: Code(s): F41.9 - Anxiety disorder, unspecified Status: Chronic Assessment and Plan: Continue with Celexa the Xanax and buspirone per home regimen (6) Parkinson disease: Code(s): G20 - Parkinson's disease Status: Acute Assessment and Plan: Continue carbidopa-levodopa (7) Acute respiratory failure with hypoxia: Code(s): J96.01 - Acute respiratory failure with hypoxia Status: Acute Assessment and Plan: 2/2 to A/C CHF Treatment as above (8) Presence of xenogenic heart valve: Code(s): Z95.3 - Presence of xenogenic heart valve Status: Acute Assessment and Plan: S/p open surgical aortic valve replacement ECHO noted above Cardiology following, recommendations appreciated (9) Ischemic cardiomyopathy: Code(s): I25.5 - Ischemic cardiomyopathy Status: Acute Assessment and Plan: Cardiology following, recommendations appreciated No home meds; was on hospice last year (10) Difficulty swallowing: Code(s): R13.10 - Dysphagia, unspecified Status: Acute Assessment and Plan: Passed MBS Continue heart healthy diet Consider crushing pills in applesauce (11) Hx of deep venous thrombosis: Code(s): Z86.718 - Personal history of other venous thrombosis and embolism Status: Acute Assessment and Plan: left external iliac vein 11/2020 Continue Eliquis Subjective Date/time seen: 04/02/21 07:30 patient is lying in bed this assessment does not appear to be in any distress. Patient notes that her breathing has improved since her admission. Patient denies cp, sob, palpitation, diarrhea, constipation, lightheadness, headache, dizziness or chills and fevers. Review of Systems Review of Systems: A 14 organ system Review of Systems was performed and pertinent positives included in the HPI, otherwise Exam Narrative: GENERAL: This is a well-nourished, well-developed patient, in no apparent distress. HEAD: normocephalic, atraumatic. EYES: PERRL. Sclera clear/white. Vision is grossly intact. EARS: External ears normal, auditory canals clear and without drainage, TMs normal without perforation. Hearing grossly intact. NOSE: External nose normal with no obvious nasal discharge, nares without redness, no rhinorrhea. THROAT: Mucous membranes moist, posterior pharynx clear. NECK: Nec
[2021-04-02 08:02] LABS: NT Pro B Type Natriuretic Pept 14000 pg/mL (5-100)
[2021-04-02] MEDS: SENNA/DOCUSATE SODIUM TABLET 2 TAB PO (08:19)
[2021-04-02] MEDS: CARBIDOPA/LEVODOPA 25/100 MG CR TABLET 1 TABLET PO ×4 (08:20→20:49)
[2021-04-02] MEDS: FUROSEMIDE TABLET 20 MG, FUROSEMIDE TABLET 40 MG 60 MG PO (08:20)
[2021-04-02] MEDS: CITALOPRAM HYDROBROMIDE 20 MG TABLET 40 MG PO (08:20)
[2021-04-02] MEDS: THERAPEUTIC MULTIVITAMINS/MINERALS TAB (*BKC) 1 TABLET PO (08:20)
[2021-04-02] MEDS: DOXYCYCLINE HYCLATE 100 MG TABLET PO ×2 (08:20→20:49)
[2021-04-02] MEDS: busPIRone HCL 5 MG TABLET 15 MG PO ×2 (08:20→17:19)
[2021-04-02] MEDS: carvediloL 3.125 MG TABLET PO ×2 (08:20→20:49)
[2021-04-02] MEDS: polyethylene glycoL 3350 17 GM POWD.PACK PO (08:21)
[2021-04-02] MEDS: LEVOTHYROXINE SODIUM 150 MCG TABLET PO (08:21)
[2021-04-02] MEDS: APIXABAN 5 MG TABLET PO ×2 (08:21→17:20)
[2021-04-02] MEDS: BISACODYL 5 MG TABLET EC PO (08:21)
[2021-04-02] MEDS: LACTULOSE 20 GM/30 ML UDC PO (08:21)
[2021-04-02] MEDS: KCL 20 MEQ/SW 100 ML 100 ML 50 MEQ IVPB ×2 (08:30→10:24)
--- NOTE | 2021-04-02 13:58 | PM.PNCARD ---
Progress Note: A&P Assessment and Plan (1) Acute respiratory failure with hypoxia: Code(s): J96.01 - Acute respiratory failure with hypoxia Status: Acute Assessment and Plan: Secondary to combination of acute on chronic decompensated heart failure with reduced ejection fraction and probable pneumonia. -she remains on IV antibiotics. Oxygenation much improved after IV Lasix yesterday afternoon. Weaned down nearly to room air. Continue to wean as tolerated. -continue oral Lasix. Monitor potassium very closely. She was significantly hypokalemic this morning receiving supplementation. -She is debilitated and needs ongoing PT/OT (2) Acute on chronic HFrEF (heart failure with reduced ejection fraction): Code(s): I50.23 - Acute on chronic systolic (congestive) heart failure Status: Acute Assessment and Plan: As above, EF 35% postoperatively 03/2020 and remains 30-35% on echocardiogram this hospitalization. Aortic valve prosthesis preserved function. Started on carvedilol 3.125 mg twice daily. Monitor BP closely. Ideally would consider adding Entresto even 12/13 mg b.i.d.. Will order to initiate tomorrow morning as BP permits. I highly doubt she would tolerate additional initiation of spironolactone. Called patient's daughter Nina Pride and updated her on patient's clinical status and plans of care. All questions answered to her satisfaction. We discussed optimizing guideline directed medical therapy as tolerated including office follow-up. She states she would like for her mother to follow-up with me as an outpatient. Advised we need to discuss further and clarify ultimate plans of care in at ICD consideration questionable particularly as she was on hospice a little over 6 months ago. She verbalized understanding and agreed with that logic. -Accurate I/O, daily weight, low sodium intake. -Clinically improving from HF perspective. (3) Bilateral pulmonary infiltrates on CXR: Code(s): R91.8 - Other nonspecific abnormal finding of lung field Status: Acute Assessment and Plan: As above. Management per primary service. Continue O2 supplementation, bronchodilator therapy as appropriate and IV antibiotics. She is clinically improving thus far. Intravenous Zosyn and vancomycin per primary service. (4) Ischemic cardiomyopathy: Code(s): I25.5 - Ischemic cardiomyopathy Status: Acute Assessment and Plan: As above. EF 30-35% by echocardiogram. As above. No significant change compared to March 2020 postoperatively. (5) Status post aortic valve replacement with bioprosthetic valve: Code(s): Z95.3 - Presence of xenogenic heart valve Status: Acute Assessment and Plan: s/p 23 mm Inspiris bioprosthetic AVR performed at normal function. (6) CAD (coronary artery disease): Code(s): I25.10 - Atherosclerotic heart disease of [place] coronary artery without angina pectoris Status: Acute Assessment and Plan: Patient does not relay anginal symptoms. However, subsequent to AVR in cardiogenic shock left main stenosis with noted on angiography assessment stating emergent SVG to LAD. She is not on aspirin as she is on apixaban. Need to clarify justification for apixaban at this time. Continue statin therapy. Add aspirin once off apixaban. She remains on apixaban secondary to history of DVT November 2020. Defer management to PCP. We discussed this as well. Advised discontinuation of Eliquis while patient is more debilitated and hospitalized would be suboptimal. She agreed. (7) Status post aorto-coronary artery bypass graft: Code(s): Z95.1 - Presence of aortocoronary bypass graft Status: Acute Assessment and Plan: As above. Continue medical therapy with atorvastatin (8) Hypokalemia: Code(s): E87.6 - Hypokalemia Status: Acute Assessment and Plan: Supplementation under way. Repeat potassium Sub
[2021-04-02] MEDS: traZODone HCL 50 MG TABLET PO (20:49)
[2021-04-02] MEDS: ATORVASTATIN 40 MG TABLET PO (20:49)
[2021-04-02] MEDS: PIPERACILLIN/TAZOBACTAM SOD 4.5 GM in SODIUM CHLORIDE 0.9% IV 100 ML IVPB (23:41)
[2021-04-03] VITALS (11 sets, daily range): BP systolic 98–99; BP diastolic 60–63; PULSE 72–96; RESP 16–18; TEMP 36.1–36.4; O2SAT 95–97
[2021-04-03] MEDS: PIPERACILLIN/TAZOBACTAM SOD 4.5 GM in SODIUM CHLORIDE 0.9% IV 100 ML IVPB ×2 (05:23→11:35)
[2021-04-03] MEDS: ACETAMINOPHEN 325 MG TABLET 650 MG PO (05:31)
[2021-04-03] MEDS: LEVOTHYROXINE SODIUM 150 MCG TABLET PO (05:31)
[2021-04-03 06:00] LABS: Hemoglobin 10.7 g/dL (12.0-15.0); Mean Corpuscular HGB Conc 30.6 g/dl (32-36); Mean Corpuscular Hemoglobin 26.5 pg (26-34); Mean Corpuscular Volume 86.6 fl (80-100); Mean Platelet Volume 10.1 fl (7.4-10.4); Platelet Count Result 229 k/mm3 (150-375); Red Blood Count 4.04 M/mm3 (4.2-5.4); Red Cell Distribution Width 12.7 % (11.5-14.5); White Blood Count 7.1 K/mm3 (4.5-10.0)
[2021-04-03 06:20] LABS: Albumin Level 3.5 g/dL (3.5-5.1); Alkaline Phosphatase 128 U/L (38-126); Anion Gap 9 mmol/L (8-16); Aspartate Amino Transferase 22 U/L (14-36); Bilirubin,Total 1.4 mg/dL (0.2-1.3); Blood Urea Nitrogen 17 mg/dL (7-17); Calcium 8.8 mg/dL (8.4-10.2); Carbon Dioxide 31 mmol/L (22-30); Chloride 96 mmol/L (98-107); Estimated CRCL calculation 49 ml/min; Estimated Glomerular Filt Rate > 60; Glucose 99 mg/dL (65-110); Potassium 3.1 mmol/L (3.4-5.0); Sodium 136 mmol/L (137-145)
[2021-04-03 06:22] LABS: Alanine Aminotransferase < 6 U/L (4-35)
--- NOTE | 2021-04-03 07:57 | WPDPN ---
Progress Note: A&P Assessment and Plan (1) Bilateral pulmonary infiltrates on CXR: Code(s): R91.8 - Other nonspecific abnormal finding of lung field Status: Acute Assessment and Plan: CXR indicates increased congestive changes and bilateral pulmonary infiltrate and pleural effusion Repeat CXR on 03/31 indicates Extensive bilateral pulmonary infiltrates, mildly increased since 03/30/2021 Continue Vanc, Zosyn, doxy Follow-up cultures preliminary no growth Supplement O2 to keep sats >93% Duo nebs (2) Acute on chronic HFrEF (heart failure with reduced ejection fraction): Code(s): I50.23 - Acute on chronic systolic (congestive) heart failure Status: Acute Assessment and Plan: Patient present with acute respiratory failure and new oxygen requirement [id number]> 13,800>30775 Chest x-ray shows increased congestive changes and suggests congestive heart failure and pulmonary edema Continue IV Lasix Cardiology consulted Repeat CXR on 03/31-->Extensive bilateral pulmonary infiltrates, mildly increased since 03/30/2021 ECHO-->EF 30-35%, Moderate mitral valve regurgitation, mitral valve annulus is severely calcified Monitor I/O, reviewed Daily weights, reviewed Monitor BMP Repeat chest x-ray pending Plans to follow-up with Dr. Cho for possible ICD placement (3) Essential hypertension: Code(s): I10 - Essential (primary) hypertension Status: Chronic Assessment and Plan: Continue metoprolol Vital signs was ordered Adjust medication as needed (4) Status post aorto-coronary artery bypass graft: Code(s): Z95.1 - Presence of aortocoronary bypass graft Status: Acute (5) Anxiety: Code(s): F41.9 - Anxiety disorder, unspecified Status: Chronic Assessment and Plan: Continue with Celexa the Xanax and buspirone per home regimen (6) Parkinson disease: Code(s): G20 - Parkinson's disease Status: Acute Assessment and Plan: Continue carbidopa-levodopa (7) Acute respiratory failure with hypoxia: Code(s): J96.01 - Acute respiratory failure with hypoxia Status: Acute Assessment and Plan: 2/2 to A/C CHF Treatment as above (8) Presence of xenogenic heart valve: Code(s): Z95.3 - Presence of xenogenic heart valve Status: Acute Assessment and Plan: S/p open surgical aortic valve replacement ECHO noted above Cardiology following, recommendations appreciated (9) Ischemic cardiomyopathy: Code(s): I25.5 - Ischemic cardiomyopathy Status: Acute Assessment and Plan: Cardiology following, recommendations appreciated No home meds; was on hospice last year (10) Difficulty swallowing: Code(s): R13.10 - Dysphagia, unspecified Status: Acute Assessment and Plan: Passed MBS Continue heart healthy diet Consider crushing pills in applesauce (11) Hx of deep venous thrombosis: Code(s): Z86.718 - Personal history of other venous thrombosis and embolism Status: Acute Assessment and Plan: left external iliac vein 11/2020 Continue Eliquis (12) Hypokalemia: Code(s): E87.6 - Hypokalemia Status: Acute Assessment and Plan: Secondary to the use of diuretics Potassium3.5>2.9>3.1 Potassium supplement as given04/02/2021 40 mEq in today another 40 mEq Subjective Date/time seen: 04/03/21 07:57 patient does not appear to be in any distress she actually looks better than she did yesterday. Patient denies cp, sob, palpitation, diarrhea, constipation, lightheadness, headache, dizziness or chills and fevers. Plan for discharge tomorrow once Cardiology clears Review of Systems Review of Systems: A 14 organ system Review of Systems was performed and pertinent positives included in the HPI, otherwise Exam Narrative: GENERAL: This is a well-nourished, well-developed patient, in no apparent distress. HEAD: normocephalic, atraumatic. EYES: PERRL. Sclera narendra
[2021-04-03] MEDS: KCL 20 MEQ/SW 100 ML 100 ML 50 MEQ IVPB (09:01)
[2021-04-03] MEDS: SACUBITRIL/VALSARTAN 12-13 MG TABLET 1 TAB PO (09:02)
[2021-04-03] MEDS: CARBIDOPA/LEVODOPA 25/100 MG CR TABLET 1 TABLET PO ×3 (09:03→17:01)
[2021-04-03] MEDS: FUROSEMIDE TABLET 20 MG, FUROSEMIDE TABLET 40 MG 60 MG PO (09:04)
[2021-04-03] MEDS: busPIRone HCL 5 MG TABLET 15 MG PO ×2 (09:04→17:01)
[2021-04-03] MEDS: DOXYCYCLINE HYCLATE 100 MG TABLET PO (09:04)
[2021-04-03] MEDS: APIXABAN 5 MG TABLET PO ×2 (09:04→17:00)
[2021-04-03] MEDS: THERAPEUTIC MULTIVITAMINS/MINERALS TAB (*BKC) 1 TABLET PO (09:04)
[2021-04-03] MEDS: POTASSIUM CHLORIDE 20 MEQ PACKET (FOR LIQUID) 40 MEQ PO (09:04)
[2021-04-03] MEDS: carvediloL 3.125 MG TABLET PO (09:05)
[2021-04-03] MEDS: CITALOPRAM HYDROBROMIDE 20 MG TABLET 40 MG PO (09:05)
[2021-04-03] MEDS: DOCUSATE SODIUM 100 MG CAPSULE PO (09:06)
[2021-04-03] MEDS: ONDANSETRON HCL ODT 4 MG TABLET PO (11:58)
[2021-04-03 13:59] LABS: Vancomycin Trough 13.6 ug/mL (10.0-20.0)
[2021-04-03 14:41] LABS: EDCOVIDSCREEN Negative (Negative)
[2021-04-03] MEDS: HYDROcodone/acetaminophen (*CRX) 5-325 MG TABLET 1 TAB PO (17:06)
[2021-04-03] MEDS: PIPERACILLIN/TAZOBACTAM SOD 4.5 GM in SODIUM CHLORIDE 0.9% IV 100 ML 200 ML IVPB (17:10)
--- NOTE | 2021-04-14 13:29 | PM.DS ---
DS: Admitting Diagnosis Discharge Date 04/03/21 Admitting Diagnosis pna DS: Discharge Diagnosis Discharge Diagnosis (1) Bilateral pulmonary infiltrates on CXR: Code(s): R91.8 - Other nonspecific abnormal finding of lung field Status: Acute Assessment and Plan: CXR indicates increased congestive changes and bilateral pulmonary infiltrate and pleural effusion Repeat CXR on 03/31 indicates Extensive bilateral pulmonary infiltrates, mildly increased since 03/30/2021 Continue Vanc, Zosyn, doxy Follow-up cultures preliminary no growth Supplement O2 to keep sats >93% Duo nebs (2) Acute on chronic HFrEF (heart failure with reduced ejection fraction): Code(s): I50.23 - Acute on chronic systolic (congestive) heart failure Status: Acute Assessment and Plan: Patient present with acute respiratory failure and new oxygen requirement [id number]> 13,800>[id number] Chest x-ray shows increased congestive changes and suggests congestive heart failure and pulmonary edema Continue IV Lasix Cardiology consulted Repeat CXR on 03/31-->Extensive bilateral pulmonary infiltrates, mildly increased since 03/30/2021 ECHO-->EF 30-35%, Moderate mitral valve regurgitation, mitral valve annulus is severely calcified Monitor I/O, reviewed Daily weights, reviewed Monitor BMP Repeat chest x-ray pending Plans to follow-up with Dr. Cho for possible ICD placement (3) Essential hypertension: Code(s): I10 - Essential (primary) hypertension Status: Chronic Assessment and Plan: Continue metoprolol Vital signs was ordered Adjust medication as needed (4) Status post aorto-coronary artery bypass graft: Code(s): Z95.1 - Presence of aortocoronary bypass graft Status: Acute (5) Anxiety: Code(s): F41.9 - Anxiety disorder, unspecified Status: Chronic Assessment and Plan: Continue with Celexa the Xanax and buspirone per home regimen (6) Parkinson disease: Code(s): G20 - Parkinson's disease Status: Acute Assessment and Plan: Continue carbidopa-levodopa (7) Acute respiratory failure with hypoxia: Code(s): J96.01 - Acute respiratory failure with hypoxia Status: Acute Assessment and Plan: 2/2 to A/C CHF Treatment as above (8) Presence of xenogenic heart valve: Code(s): Z95.3 - Presence of xenogenic heart valve Status: Acute Assessment and Plan: S/p open surgical aortic valve replacement ECHO noted above Cardiology following, recommendations appreciated (9) Ischemic cardiomyopathy: Code(s): I25.5 - Ischemic cardiomyopathy Status: Acute Assessment and Plan: Cardiology following, recommendations appreciated No home meds; was on hospice last year (10) Difficulty swallowing: Code(s): R13.10 - Dysphagia, unspecified Status: Acute Assessment and Plan: Passed MBS Continue heart healthy diet Consider crushing pills in applesauce (11) Hx of deep venous thrombosis: Code(s): Z86.718 - Personal history of other venous thrombosis and embolism Status: Acute Assessment and Plan: left external iliac vein 11/2020 Continue Eliquis (12) Hypokalemia: Code(s): E87.6 - Hypokalemia Status: Acute Assessment and Plan: Secondary to the use of diuretics Potassium3.5>2.9>3.1 Potassium supplement as given04/02/2021 40 mEq in today another 40 mEq DS: Summary Hospital Course Reason for hospitalization: Pneumonia Hospital Course: Patient is 70-year-old female with a past medical history including but not limited to HTN, critical aortic valve stenosis s/p repair(2019), presented with chief complaint of worsening shortness of breath after being diagnosed with pneumonia at the shelter on Monday. The patient was very sick and was on hospice for 6 months; she gradually improved and her daughter revoked the DNR/DNI. Patient reports that she was being treated with antibiotics wi
== END 2021-04-03 18:30 | DRG 291 ==
LOC: ANHED 09:10 → ANH2MED 12:56
PROVIDERS: Family Medicine; Nurse Practitioner; Nurse Practitioner Adult Health; Physician Assistant; Admitting Provider Internal Medicine; Emergency Provider Emergency Medicine; PCP Internal Medicine; Visit Provider Internal Medicine
DX: I11.0 Hypertensive heart disease with heart failure (principal); I50.23 Acute on chronic systolic (congestive) heart failure; J96.01 Acute respiratory failure with hypoxia; J18.9 Pneumonia, unspecified organism; Z20.822 Contact with and (suspected) exposure to COVID-19; I25.5 Ischemic cardiomyopathy; G20 Parkinson's disease; R13.10 Dysphagia, unspecified; I35.0 Nonrheumatic aortic (valve) stenosis; F41.9 Anxiety disorder, unspecified; I25.10 Atherosclerotic heart disease of native coronary artery without angina pectoris; E87.6 Hypokalemia; M81.0 Age-related osteoporosis without current pathological fracture; G25.81 Restless legs syndrome; Z86.718 Personal history of other venous thrombosis and embolism; Z95.1 Presence of aortocoronary bypass graft; Z98.1 Arthrodesis status; Z98.42 Cataract extraction status, left eye; Z98.41 Cataract extraction status, right eye; Z87.891 Personal history of nicotine dependence; Z95.3 Presence of xenogenic heart valve
CPT/HCPCS: 36415; 71045; 80048; 80053; 80202; 82565; 83605; 83880; 85025; 85027; 87040; 87426; 92611; 93005; 93306; 94640; 96365; 96375; 97110; 97162; 97165; 99285; A9270; C9803; J1940; J2543; J2930; J3370; J3480